=== PATIENT | female | born 1985 | race Caucasian/White ===

== ENCOUNTER 2019-08-02 08:20 | Emergency (ER) | payer OTHER, SELFPAY ==
--- NOTE | 2019-08-02 08:26 | DI.RAD.S_ITS ---
PROCEDURE: XR CHEST 2V INDICATIONS: cough, congestion TECHNIQUE: 2 views of the chest were acquired. COMPARISON: [facility], , CHEST 2 VIEW, 04/28/2016, 15:52. FINDINGS: Surgical changes and devices: None. Lungs and pleura: Lungs are clear. No pleural effusions or pneumothorax. Mediastinum: Mediastinal contours are normal. Heart size is normal. Bones and chest wall: No suspicious bony abnormalities. Soft tissues appear unremarkable. IMPRESSION: No acute cardiopulmonary process is evident. Dictated by: Cipriano Madison M.D. on 08/02/2019 at 7:46 Approved by: Cipriano Madison M.D. on 08/02/2019 at 7:47
[2019-08-02 08:28] VITALS: BP 132/100; PULSE 134; RESP 13; TEMP 37.1; O2SAT 99
[2019-08-02 08:56] VITALS: PULSE 83; RESP 16; O2SAT 98
[2019-08-02 09:00] VITALS: BP 124/90; PULSE 124; RESP 13
[2019-08-02] MEDS: ALBUTEROL HFA PREPACK 1 BOX MISC (09:00)
--- NOTE | 2019-08-02 09:01 | ED_ITS ---
HPI - URI/Sore Throat General Chief Complaint: Upper Respiratory Symptoms Stated Complaint: Heavy Chest, SOB, Congestion Time Seen by Provider: 08/02/19 08:24 Source: patient Mode of arrival: Ambulatory Limitations: no limitations History of Present Illness HPI Narrative: 34-year-old female nonsmoker presents with a chief complaint of wheezing, cough with runny nose and sore throat over the past few days. She d enies any chest pressure and is not dizzy nor weak or lightheaded. She denies use of any street drugs nor recent travel. She denies any nausea, vomiting or diarrhea. She does not have asthma but states she frequently gets wheezy with upper respiratory infection MD Complaint: cough, rhinorrhea and nasal congestion Onset (ago): day(s) Duration: constant Severity: moderate Relieving factors: rest Exacerbating factors: exertion Able to tolerate fluids by mouth: Yes Associated symptoms: nasal congestion and cough Treatments prior to arrival: none Related Data Previous Rx's Medication Instructions Recorded norethindrone 1.5 mg-ethinyl 1 tab PO DAILY #168 tab 07/02/19 estradiol 30 mcg(21)/iron 75 mg(7) tablet bupropion HCl 150 mg tablet,12 hr 150 mg PO DAILY #90 each 07/22/19 sustained-release dextroamphetamine-amphetamine 10 20 mg PO TID #180 tab 08/01/19 mg tablet hydrocodone 5 mg-acetaminophen 325 See Rx Instructions .ROUTE BID #60 08/01/19 mg tablet tab Allergies Allergy/AdvReac Type Severity Reaction Status Date / Time amoxicillin Allergy Unknown Verified 08/01/19 16:49 Review of Systems Constitutional Constitutional: Denies chills, Denies fatigue, Denies fever(s), Denies frequent falls, Denies lethargy and Denies weakness Eyes Eyes: Denies change in vision, Denies eye discharge, Denies irritation and Denies loss of vision ENT Ears, Nose, Mouth, and Throat: Denies change in voice, Denies dizziness, Denies neck pain, Denies sore throat and Denies throat swelling Cardiovascular Cardiovascular: Denies chest pain, Denies irregular heart rhythm, Denies lightheadedness, Denies palpitations, Denies dyspnea, Denies dyspnea on exertion and Denies orthopnea Respiratory Respiratory: Reports cough, Denies hemoptysis, Denies dyspnea, Denies dyspnea on exertion and Reports wheezing Gastrointestinal Gastrointestinal: Denies abdominal pain, Denies change in bowel habits, Denies diarrhea, Denies nausea and Denies vomiting Genitourinary Genitourinary: Denies hematuria, Denies flank pain, Denies urinary incontinence and Denies urinary urgency Musculoskeletal Musculoskeletal: Denies back pain, Denies muscle weakness, Denies neck pain, Denies numbness and Denies tingling Integumentary/Breasts Skin/Breast: Denies pruritus, Denies erythema, Denies rash and Denies wounds Neurologic Neurologic: Denies behavioral changes, Denies confusion, Denies dizziness, Denies frequent falls, Denies loss of vision, Denies numbness, Denies tingling and Denies weakness Psychiatric Psychiatric: Denies anxiety, Denies behavioral changes, Denies confusion, Denies depression, Denies homicidal ideation and Denies suicidal ideation Endocrine Endocrine: Denies fatigue, Denies flushing and Denies palpitations Hematologic/Lymphatic Hematologic/Lymphatic: Denies easy bruising Allergic/Immunologic Allergic/Immunologic: Denies urticaria, Denies throat swelling and Reports wheezing Patient History Medical History Abnormal Pap smear of cervix (Inactive ~2006) Surgical History Anesthesia (Resolved) History of laparoscopy (Resolved) History of oral surgery (Resolved ~10/2000) History of surgery (Resolved) Social History Smoking Status: Never smoker alcohol intake: never Exam Narrative Exam Narrative: GENERAL: [34] year old patient appears stated age. Well- nourished, well-developed patient, in mild distress. Anxious HEAD: Atraumatic. Normocephalic. EYES: Pupils equal round and reactive. Extraocular motions intact. No scleral icterus. No injection or drainage. ENT: Nose without bleeding, purulent drainage. Throat without erythema, tonsillar hypertrophy or exudate. Airway patent. NECK: Trachea midline. Non tender CARDIOVASCULAR: Tachycardic rate and rhythm without murmurs, gallops, or rubs. RESPIRATORY: Deep breath initiates cough, mild expiratory wheeze at the end of the respiratory phase. GASTROINTESTINAL: Abdomen soft, non-tender, nondistended. EXTREMITIES: No edema or joint tenderness. BACK: Nontender without deformity or crepitance. No flank tenderness. NEURO: AOx3. SKIN: No rash or erythema of visible areas Initial Vital Signs Initial Vital Signs: Vital Signs Temperature 98.7 F 08/02/19 08:28 Pulse Rate 134 H 08/02/19 08:28 Respiratory Rate 13 08/02/19 08:28 Blood Pressure 132/100 H 08/02/19 08:28 Pulse Oximetry 99 08/02/19 08:28 Course Course Course Narrative: Patient experiences near complete resolution of symptoms after the above-stated therapies. Patient demonstrates no ongoing work of breathing. Manual pulse is at time of discharge is 106 Orders Ordered: Discontinued Medications Albuterol (Ventolin Hfa Prepack) 1 box MISC SEEINSTR ONE Stop: 08/02/19 08:56 Last Admin: 08/02/19 09:00 Dose: 1 box Documented by: JAY Vital Signs Vital signs: Vital Signs - 8 hr 08/02/19 08:28 08/02/19 08:56 08/02/19 09:00 Temperature 98.7 F Pulse Rate 134 H 83 124 H Respiratory Rate 13 16 13 Blood Pressure 132/100 H 124/90 Pulse Oximetry 99 98 MDM - URI/Sore Throat MDM Narrative Medical decision making narrative: Multiple etiologies for patient's symptoms considered including: [Bronchospasm due to viral upper respiratory infection versus pneumonia versus PE versus other] Patient's symptoms improved or duration of stay with above-stated therapies. Findings and discharge diagnosis discussed with patient/family followed by verbalization of understanding Return precautions discussed with patient/family whom verbalize understanding. Discharge Plan Departure Patient Disposition: Home Clinical Impression: Upper respiratory virus Discharge Date/Time: 08/02/19 09:01 Activity Restrictions/Additional Instructions: *You have been diagnosed with [acute viral upper respiratory infection with bronchospasm] *What to do: *Take medications as directed: Considered [id number] medications with an antihistamine to dry secretions *Follow up with your primary care provider in 2-3 days, call for an appointment. Let them know you were seen in the Emergency Department and that we ask that you be seen in follow up *Return to ER if you should have any new, worsening or concerning symptoms Prescriptions: No Action Mirlande Fe 1.5/30 (28) 1.5 mg-30 mcg (21)/75 mg (7) tablet 1 tab PO DAILY Qty: 168 RF: 0 bupropion HCl [Wellbutrin SR] 150 mg tablet sustained-release 12 hr 150 mg PO DAILY Qty: 90 RF: 0 dextroamphetamine-amphetamine [Adderall] 10 mg tablet 20 mg PO TID Qty: 180 RF: 0 hydrocodone-acetaminophen 5-325 mg tablet See Rx Instructions .ROUTE BID Qty: 60 RF: 0 Referrals: More Bergman DO [Primary Care Provider] -
== END 2019-08-02 09:01 | disposition home or self-care (01) ==
PROVIDERS: Emergency Provider Emergency Medicine; Family Provider Family Medicine; PCP Family Medicine
DX: J06.9 Acute upper respiratory infection, unspecified (principal)
CPT/HCPCS: 71046; 99282; 99283

== ENCOUNTER → 2019-08-15 14:18 | Outpatient (CLI) | payer OTHER, SELFPAY ==
[2019-08-15 14:37] LABS: Add Manual Diff / Slide Review NO; Basophils Absolute Auto 100 /uL (0-100); Basophils Percent Auto 1.1 % (0-2); Eosinophils Absolute Auto 100 /uL (0-450); Eosinophils Percent Auto 1.6 % (2-4); Hemoglobin 15.8 g/dL (12.0-16.0); Lymphocytes Absolute Auto 2100 /uL (1100-4500); Lymphocytes Percent Auto 46.2 % (25-40); Mean Corpuscular HGB Conc 35.1 % (30-36); Mean Corpuscular Hemoglobin 32.2 PG (26-34); Mean Corpuscular Volume 91.8 fL (80-100); Monocytes Absolute Auto 400 /uL (0-900); Monocytes Percent Auto 8.3 % (3-14); Neutrophils Absolute Auto 2000 /uL (1500-7000); Neutrophils Percent Auto 42.8 % (50-75); Platelet Count 259 X10^3/uL (150-400); Red Cell Distribution Width 12.2 % (11.6-14.8); White Blood Cell Count 4.6 X10^3/uL (4.5-11.0)
== END ==
PROVIDERS: PCP Family Medicine; Visit Provider Nurse Practitioner Family
DX: R05 Cough (principal)
CPT/HCPCS: 36415; 85025

== ENCOUNTER 2019-11-07 11:05 | Outpatient (RCR) | payer OTHER, SELFPAY ==
--- NOTE | 2019-11-07 15:52 | PT.OPPOC ---
Physical, Occupational & Speech Therapy At [facility] Current Diagnoses Dorsalgia, unspecified (11/07/19) Visit Care Team Role Provider Type Davis Lawson DO Primary Care Provider Physician Specialty: [facility] Practice Address: [address] [place] [address], [address] Email: [email or web address] Attending Provider Advanced Slot Ambassador Referring Provider Specialty: [facility] Address: [address] [place] [address], [id number] Email: [email or web address] Plan Of Care PT-OP-T Assessment and Plan Start: 11/07/19 10:19 Freq: Status: Active Protocol: Document 11/07/19 11:15 EG (Rec: 11/10/19 11:51 EG [email or web address]) Physical Therapy Assessment Rehab Potential Rehabilitation Potential Good Evaluation Complexity Number of Personal Factors/Comorbidities 3 or More Number of Body Systems Impaired 4 or More Clinical Presentation at Evaluation Stable Impairments Impairments Activity Tolerance,Functional Activities,Functional Mobility ,Gait,Pain,Posture,ROM,Soft Tissue Mobility,Strength,Tone Other Concerns Barriers to Rehabilitation 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 LTG Duration 8 weeks Five Impairment Sleep Short Term Goal (STG) Patient will be able to sleep 6 hour/night with out waking up due to pain in 4 weeks. STG Duration 4 weeks Skilled Nursing Goal (LTG) Patient will be able to sleep 8 hours/night with out waking up due to pain in 8 weeks. LTG Duration 8 weeks Four Impairment Strength Short Term Goal (STG) Patient will increase gluteal extension and abduction strength to 4-/5 in 4 weeks with 50% less contraction of erector spinae. STG Duration 4 weeks Manager Of Loss Prevention Operations Goal (LTG) Patient will increase gluteal extension and abduction strength to 4+/5 in 8 weeks with 90% less contraction of erector spinae. LTG Duration 8 weeks Three Impairment ROM Short Term Goal (STG) Patient will have no more than 2/10 pain when moving from lumbar flexion to extension in 4 weeks. STG Duration 4 weeks Skilled Nursing Goal (LTG) Patient will have pain-free lumbar ROM in all planes in 8 weeks. LTG Duration 8 weeks Two Impairment Pain level Short Term Goal (STG) Patient will have 50% decreased back pain during daily activities in 4 weeks. STG Duration 4 weeks Manager Of Loss Prevention Operations Goal (LTG) Patient will have 85% decreased back pain during daily activities in 8 weeks. LTG Duration 8 weeks One Impairment Modified Oswestry Skilled Nursing Goal (LTG) Patient will decrease Oswestry score to <20% impaired due to back pain in 8 weeks. LTG Duration 8 weeks Assessment Summary Assessment Patient is a pleasant 34 year old female who presents to Physical therapy with the c/c of low back pain as well as R- sided thoracic pain. Patient demonstrates hyperactivity in the bilateral erector spinae with contraction during all activities due to chronic low back pain. Patient also presents with slight diastasis recti in proximal abdomon. R Ribs 4-7 have increased tenderness with no obvious displacement and may benefit from Grade I joint mobilizations as well as deep diaphragmatic breathing activities for pain relief. Patient will benefit from neuromuscular reeducation as well as strength training of the gluteal and hip musculature in order to contract these muscles independently of the erector spinae. Patient will benefit from deep transverse abdominis strengthening in order to help with stabilization of the spine without over engaging larger spinal muscles that may cause tension and pain. Physical Therapy Plan Frequency and Duration Frequency of Treatment 1x/Week Duration of Treatment 8 weeks Plan of Care Start Date 11/07/19 Plan of Care End Date 01/02/20 Therapeutic Interventions Therapeutic Interventions Balance Training,Coordination Training,Gait Training,Home Exercise Program,Joint Mobilizations,Manual Therapy, Neuromuscular Re-education, Patient/Caregiver Education, Self-Care/Home Management,Soft Tissue Mobilization,Taping, Therapeutic Activities, Therapeutic Exercises Modalities Cold Pack/Ice Massage,Electric Stimulation Next Visit Focus/Plan Next Note Type Treatment Note Next Visit Plan Assess how HEP is going. Progress TA strengthening as well as hip abductor strengthening. Perform soft tissue mobilization of erector spinae. Plan of Care Dates Plan of Care Start Date 11/07/19 Plan of Care End Date 01/02/20 Maria Del Carmen Miller DPT, supervised all treatment performed by, and agreed with the plan of care, as performed by YASHIRA Bolanos. Electronically Signed by: Maria Del Carmen Thomas, PT 11/11/19 [id number] Please Sign and Return: I have reviewed this Plan of Care and certify that the skilled therapy services above are required to meet the patient?s needs. Physician Signature Date Printed Name and Credentials Clinical Instructor Signature Printed Name and Credentials
--- NOTE | 2019-11-07 15:52 | PT.OIE ---
Current Diagnoses Dorsalgia, unspecified (11/07/19) Past Medical History (Last Reviewed 10/28/19 @ 09:36 by Davis Lawson DO) Abnormal Pap smear of cervix (Inactive ~2006) Past Surgical History (Last Reviewed 10/28/19 @ 09:36 by Davis Lawson DO) Anesthesia (Resolved) History of laparoscopy (Resolved) History of oral surgery (Resolved ~10/2000) History of surgery (Resolved) Visit Care Team Role Provider Type Davis Lawson DO Primary Care Provider Physician Specialty: [facility] Address: [address] [place] [address] Email: [email or web address] Attending Provider Advanced Personal Care Home Administrator Referring Provider Specialty: [facility] Address: [address] [place] [address] Email: [email or web address] Physical Therapy Initial Evaluation PT-OP-A Visit Information Start: 11/07/19 10:19 Freq: Status: Active Protocol: Document 11/07/19 11:15 EG (Rec: 11/10/19 09:52 EG [email or web address]) Out-Patient Physical Therapy Visit Information Visit Information Visit Type Initial Evaluation Visit Start Time 11:15 Visit Stop Time 12:00 Total Visit Minutes 45 Visit Number 1 Number of HOST AND HOSTESS Visits 0 Evaluation Information Evaluation Date 11/07/19 PT-OP-B Current Condition Start: 11/07/19 10:19 Freq: Status: Active Protocol: Document 11/07/19 11:15 EG (Rec: 11/07/19 12:16 EG [id number]) Current Condition History of Current Condition Onset Date 2018 Current Complaints Persistent low back pain History of Current Condition Patient reports low back pain that started about 3 years ago when and continued post-. She also has complaint of upper back which was due to a respiratory infection in June 2019 when coughing hard. At the time she was barely able to move right arm and the pain was primarily on the R side. Her upper back pain has progressively gotten better since then but she can still feel the spot. Any coughing or sneezing makes pain in the upper back worse. Patient reports that her lower back pain started with and got worse and worse. Patient reports that exacerbation factors include: everything seems to make it worse, walking up and down stairs, sitting for longer periods of time. Average pain is a 4-5/10 and when it gets worse it is hard to breath. Patient also reports Chronic abdominal pain and noticed the other day when propping feet up that there was a giant divot in abdomen. 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 Patient reports that before she was , she was running half marathons. Easing factors include: heat makes her feel better as well as lying down. Patient also reports that sleeping is an issue and gets ~5 hours/night due to pain and waking up and repositioning. Prior Treatments and Tests Physical Therapy for low back while Heat Treatment Goals Patient/Caregiver Goals Nice not to have a constant pain and worry that she is doing too much to cause incerased pain. She would like to become more and more physically active. 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 Baseline Function- Recreation/Hobbies Running, taking care of 2-year old Current Functional Impairments (Reported) Functional Limitations- ADL's Sleeping <5 hours/night due to back pain Functional Limitations- Mobility/Gait unable to run due to pain Functional Limitations- Recreation/ decreased activity with 2 year Hobbies old due to pain Personal Factors Other Personal Factors That May Effect History of cancer Therapy/Recovery Headaches Jaw and neck pain Primary care assistant of 2 year old child PT-OP-C Subjective Start: 11/07/19 10:19 Freq: Status: Active Protocol: Document 11/07/19 11:15 EG (Rec: 11/10/19 11:37 EG [email or web address]) Patient Questionnaires Oswestry Low Back Index Oswestry Score 50 Oswestry Impairment 40 to 59% Impaired (Score 40- 59) OP-PT Pain Assessment Pain Assessment Grid Paper Pain Assessment Grid Completed Yes: 5 - low back bilateral, neck, R scapula PT-OP-F Manual Assessment Start: 11/07/19 10:19 Freq: Status: Active Protocol: Document 11/07/19 11:15 EG (Rec: 11/10/19 11:37 EG [email or web address]) Manual Assessments Soft Tissue Assessment Soft Tissue Mobility Assessment Tenderness on soft tissue of ribs 4-7 Increased tenderness bilaterally superior to iliac crest Decreased fascia mobility bilateral erector spinae Joint Mobility Assessment Joint Mobility Assessment PA normal - increased pain with palpation L2-S1 PT-OP-J Posture/Palpation/Skin Start: 11/07/19 10:19 Freq: Status: Active Protocol: Document 11/07/19 11:15 EG (Rec: 11/10/19 11:37 EG [email or web address]) Posture Evaluation Position Standing Evaluation View Posterior L-Spine Posture Increased Lordosis Shoulder Posture (L) Elevated,(R) Elevated Scapula Posture (L) Protracted,(R) Protracted Pelvis Posture Anteriorly Tilted Palpation Assessment Location 2 Palpation Location Rectus Abdominis Palpation Findings Tenderness Palpation Details 2 finger distance diastasis recti above umbilicus 1 finger distance diastasis recti below umbilicus 1 Palpation Location Bilateral erector spinae Palpation Findings Muscle Guarding,Tenderness Palpation Details Bilateral erector spinae hyper active with all movements PT-OP-K Range of Motion Start: 11/07/19 10:19 Freq: Status: Active Protocol: Document 11/07/19 11:15 EG (Rec: 11/10/19 11:37 EG [email or web address]) Lumbar Spine Range of Motion Lumbar Spine Active Testing Position Standing Comments All movements WNL with increased pain moving from flexion to extension of lumbar spine at last 10 degrees of movement PT-OP-L Special Tests Start: 11/07/19 10:19 Freq: Status: Active Protocol: Document 11/07/19 11:15 EG (Rec: 11/10/19 11:37 EG [email or web address]) Special Tests Lumbar Spine Special Tests Slump Test Results - Comments bilateral Stork Test Test Results - Comments normal movement of SIJ Hip Special Tests Straight Leg Raise Test Results - Comments Increased tension at 90 degrees leg raise MIKA Test Results - PT-OP-M Strength Start: 11/07/19 10:19 Freq: Status: Active Protocol: Document 11/07/19 11:15 EG (Rec: 11/10/19 11:37 EG [email or web address]) Hip Strength Hip Manual Muscle Testing Left Extension (S1) 3+ Fair+ Abduction 3+ Fair+ Comments Pain with hip extension - increased erector spinae firing with hip extension Right Extension (S1) 3+ Fair+ Abduction 3+ Fair+ Comments Pain with hip extension - increased erector spinae firing with hip extension PT-OP-Q Treatments Start: 11/07/19 10:19 Freq: Status: Active Protocol: Document 11/07/19 11:15 EG (Rec: 11/10/19 11:37 EG [email or web address]) Therapeutic Exercises Supine Exercises Supine lumbar rotation Supine Exercise Name Supine lumbar rotation Side bilateral Reps/Minutes 10x Comments Given as HEP - hold side for 10 sec Posterior Pelvic Tilt Supine Exercise Name TA engagement Side bilateral Reps/Minutes 10x Comments move with breath - patient in hooklying - given as HEP PT-OP-T Assessment and Plan Start: 11/07/19 10:19 Freq: Status: Active Protocol: Document 11/07/19 11:15 EG (Rec: 11/10/19 11:51 EG [email or web address]) Physical Therapy Assessment Rehab Potential Rehabilitation Potential Good Evaluation Complexity Number of Personal Factors/Comorbidities 3 or More Number of Body Systems Impaired 4 or More Clinical Presentation at Evaluation Stable Impairments Impairments Activity Tolerance,Functional Activities,Functional Mobility ,Gait,Pain,Posture,ROM,Soft Tissue Mobility,Strength,Tone Other Concerns Barriers to Rehabilitation 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 LTG Duration 8 weeks Five Impairment Sleep Short Term Goal (STG) Patient will be able to sleep 6 hour/night with out waking up due to pain in 4 weeks. STG Duration 4 weeks Long-Term Goal (LTG) Patient will be able to sleep 8 hours/night with out waking up due to pain in 8 weeks. LTG Duration 8 weeks Four Impairment Strength Short Term Goal (STG) Patient will increase gluteal extension and abduction strength to 4-/5 in 4 weeks with 50% less contraction of erector spinae. STG Duration 4 weeks Long-Term Goal (LTG) Patient will increase gluteal extension and abduction strength to 4+/5 in 8 weeks with 90% less contraction of erector spinae. LTG Duration 8 weeks Three Impairment ROM Short Term Goal (STG) Patient will have no more than 2/10 pain when moving from lumbar flexion to extension in 4 weeks. STG Duration 4 weeks Crop Farm Workers Goal (LTG) Patient will have pain-free lumbar ROM in all planes in 8 weeks. LTG Duration 8 weeks Two Impairment Pain level Short Term Goal (STG) Patient will have 50% decreased back pain during daily activities in 4 weeks. STG Duration 4 weeks Long-Term Goal (LTG) Patient will have 85% decreased back pain during daily activities in 8 weeks. LTG Duration 8 weeks One Impairment Modified Oswestry Long-Term Goal (LTG) Patient will decrease Oswestry score to <20% impaired due to back pain in 8 weeks. LTG Duration 8 weeks Assessment Summary Assessment Patient is a pleasant 34 year old female who presents to Physical therapy with the c/c of low back pain as well as R- sided thoracic pain. Patient demonstrates hyperactivity in the bilateral erector spinae with contraction during all activities due to chronic low back pain. Patient also presents with slight diastasis recti in proximal abdomon. R Ribs 4-7 have increased tenderness with no obvious displacement and may benefit from Grade I joint mobilizations as well as deep diaphragmatic breathing activities for pain relief. Patient will benefit from neuromuscular reeducation as well as strength training of the gluteal and hip musculature in order to contract these muscles independently of the erector spinae. Patient will benefit from deep transverse abdominis strengthening in order to help with stabilization of the spine without over engaging larger spinal muscles that may cause tension and pain. Physical Therapy Plan Frequency and Duration Frequency of Treatment 1x/Week Duration of Treatment 8 weeks Plan of Care Start Date 11/07/19 Plan of Care End Date 01/02/20 Therapeutic Interventions Therapeutic Interventions Balance Training,Coordination Training,Gait Training,Home Exercise Program,Joint Mobilizations,Manual Therapy, Neuromuscular Re-education, Patient/Caregiver Education, Self-Care/Home Management,Soft Tissue Mobilization,Taping, Therapeutic Activities, Therapeutic Exercises Modalities Cold Pack/Ice Massage,Electric Stimulation Next Visit Focus/Plan Next Note Type Treatment Note Next Visit Plan Assess how HEP is going. Progress TA strengthening as well as hip abductor strengthening. Perform soft tissue mobilization of erector spinae. Maria Del Carmen Miller DPT, supervised all treatment performed by, and agreed with the plan of care, as performed by YASHIRA Bolanos.
--- NOTE | 2020-03-24 16:04 | PT.OPDS ---
Current Diagnoses Dorsalgia, unspecified (11/07/19) Visit Care Team Role Provider Type Davis Lawson DO Primary Care Provider Physician Specialty: [facility] Practice Address: [address] [place] [address], [id number] Email: [email or web address] Attending Provider Advanced Assurance Manager Referring Provider Specialty: [facility] Address: [address] [place] [address], [id number] Email: [email or web address] Visit Number Visit Number 1 Discharge Summary PT-OP-B Current Condition Start: 11/07/19 10:19 Freq: Status: Active Protocol: Document 11/07/19 11:15 EG (Rec: 11/07/19 12:16 EG [id number]) Current Condition History of Current Condition Onset Date 2017 Current Complaints Persistent low back pain History of Current Condition Patient reports low back pain that started about 3 years ago when and continued post-. She also has complaint of upper back which was due to a respiratory infection in June 2019 when coughing hard. At the time she was barely able to move right arm and the pain was primarily on the R side. Her upper back pain has progressively gotten better since then but she can still feel the spot. Any coughing or sneezing makes pain in the upper back worse. Patient reports that her lower back pain started with and got worse and worse. Patient reports that exacerbation factors include: everything seems to make it worse, walking up and down stairs, sitting for longer periods of time. Average pain is a 4-5/10 and when it gets worse it is hard to breath. Patient also reports Chronic abdominal pain and noticed the other day when propping feet up that there was a giant divot in abdomen. 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 Patient reports that before she was , she was running half marathons. Easing factors include: heat makes her feel better as well as lying down. Patient also reports that sleeping is an issue and gets ~5 hours/night due to pain and waking up and repositioning. Prior Treatments and Tests Physical Therapy for low back while Heat Treatment Goals Patient/Caregiver Goals Nice not to have a constant pain and worry that she is doing too much to cause incerased pain. She would like to become more and more physically active. 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 Baseline Function- Recreation/Hobbies Running, taking care of 2-year old Current Functional Impairments (Reported) Functional Limitations- ADL's Sleeping <5 hours/night due to back pain Functional Limitations- Mobility/Gait unable to run due to pain Functional Limitations- Recreation/ decreased activity with 2 year Hobbies old due to pain Personal Factors Other Personal Factors That May Effect History of cancer Therapy/Recovery Headaches Jaw and neck pain 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 PT-OP-C Subjective Start: 11/07/19 10:19 Freq: Status: Active Protocol: Document 11/07/19 11:15 EG (Rec: 11/10/19 11:37 EG [email or web address]) Patient Questionnaires Oswestry Low Back Index Oswestry Score 50 Oswestry Impairment 40 to 59% Impaired (Score 40- 59) OP-PT Pain Assessment Pain Assessment Grid Paper Pain Assessment Grid Completed Yes: 5 - low back bilateral, neck, R scapula PT-OP-F Manual Assessment Start: 11/07/19 10:19 Freq: Status: Active Protocol: Document 11/07/19 11:15 EG (Rec: 11/10/19 11:37 EG [email or web address]) Manual Assessments Soft Tissue Assessment Soft Tissue Mobility Assessment Tenderness on soft tissue of ribs 4-7 Increased tenderness bilaterally superior to iliac crest Decreased fascia mobility bilateral erector spinae Joint Mobility Assessment Joint Mobility Assessment PA normal - increased pain with palpation L2-S1 PT-OP-J Posture/Palpation/Skin Start: 11/07/19 10:19 Freq: Status: Active Protocol: Document 11/07/19 11:15 EG (Rec: 11/10/19 11:37 EG [email or web address]) Posture Evaluation Position Standing Evaluation View Posterior L-Spine Posture Increased Lordosis Shoulder Posture (L) Elevated,(R) Elevated Scapula Posture (L) Protracted,(R) Protracted Pelvis Posture Anteriorly Tilted Palpation Assessment Location 2 Palpation Location Rectus Abdominis Palpation Findings Tenderness Palpation Details 2 finger distance diastasis recti above umbilicus 1 finger distance diastasis recti below umbilicus 1 Palpation Location Bilateral erector spinae Palpation Findings Muscle Guarding,Tenderness Palpation Details Bilateral erector spinae hyper active with all movements PT-OP-K Range of Motion Start: 11/07/19 10:19 Freq: Status: Active Protocol: Document 11/07/19 11:15 EG (Rec: 11/10/19 11:37 EG [email or web address]) Lumbar Spine Range of Motion Lumbar Spine Active Testing Position Standing Comments All movements WNL with increased pain moving from flexion to extension of lumbar spine at last 10 degrees of movement PT-OP-L Special Tests Start: 11/07/19 10:19 Freq: Status: Active Protocol: Document 11/07/19 11:15 EG (Rec: 11/10/19 11:37 EG [email or web address]) Special Tests Lumbar Spine Special Tests Slump Test Results - Comments bilateral Stork Test Test Results - Comments normal movement of SIJ Hip Special Tests Straight Leg Raise Test Results - Comments Increased tension at 90 degrees leg raise MIKA Test Results - PT-OP-M Strength Start: 11/07/19 10:19 Freq: Status: Active Protocol: Document 11/07/19 11:15 EG (Rec: 11/10/19 11:37 EG [email or web address]) Hip Strength Hip Manual Muscle Testing Left Extension (S1) 3+ Fair+ Abduction 3+ Fair+ Comments Pain with hip extension - increased erector spinae firing with hip extension Right Extension (S1) 3+ Fair+ Abduction 3+ Fair+ Comments Pain with hip extension - increased erector spinae firing with hip extension PT-OP-T Assessment and Plan Start: 11/07/19 10:19 Freq: Status: Active Protocol: Document 03/24/20 16:04 MB (Rec: 03/24/20 16:04 MB [id number]) Physical Therapy Plan Discharge Physical Therapy Discharge Reasons No Longer Attending PT Discharge Comments Pt has not been seen or called to reschedule after COVID closure. Will d/c PT.
== END 2020-03-26 08:11 ==
LOC: PHYS 11:05
PROVIDERS: PCP Family Medicine; Referring Provider Nurse Practitioner Family; Visit Provider Nurse Practitioner Family
DX: M54.9 Dorsalgia, unspecified (principal)
CPT/HCPCS: 97161

== ENCOUNTER → 2019-11-24 12:04 | Outpatient (CLI) | payer OTHER, SELFPAY ==
[2019-11-24 13:10] LABS: Add Manual Diff / Slide Review NO; Basophils Absolute Auto 0 /uL (0-100); Eosinophils Absolute Auto 0 /uL (0-450); Eosinophils Percent Auto 0.4 % (2-4); Hematocrit 45.7 % (36-46); Hemoglobin 16.1 g/dL (12.0-16.0); Lymphocytes Absolute Auto 1700 /uL (1100-4500); Mean Corpuscular HGB Conc 35.2 % (30-36); Mean Corpuscular Hemoglobin 32.6 PG (26-34); Mean Corpuscular Volume 92.5 fL (80-100); Monocytes Absolute Auto 300 /uL (0-900); Monocytes Percent Auto 7.4 % (3-14); Neutrophils Absolute Auto 1900 /uL (1500-7000); Neutrophils Percent Auto 48.2 % (50-75); Platelet Count 229 X10^3/uL (150-400); Red Blood Cell Count 4.94 X10^6/uL (4.0-5.2); Red Cell Distribution Width 12.2 % (11.6-14.8); White Blood Cell Count 3.8 X10^3/uL (4.5-11.0)
[2019-11-26 11:14] LABS: Adenovirus Not Detected (Not Detect); Coronavirus 229E Not Detected (Not Detect); Coronavirus HKU1 Not Detected (Not Detect); Coronavirus NL 63 Not Detected (Not Detect); Coronavirus OC43 Not Detected (Not Detect); Human Metapneumovirus Not Detected (Not Detect)
[2019-11-26 11:15] LABS: Bordetella pertussis Not Detected (Not Detect); Chlamydophila pneumoniae Not Detected (Not Detect); Human Rhinovirus/Enterovirus Detected (Not Detect); Influenza A Not Detected (Not Detect); Influenza B Not Detected (Not Detect); Mycoplasma pneumoniae Not Detected (Not Detect); Parainfluenza Virus 1 Not Detected (Not Detect); Parainfluenza Virus 2 Not Detected (Not Detect); Parainfluenza Virus 3 Not Detected (Not Detect); Parainfluenza Virus 4 Not Detected (Not Detect); Respiratory Syncytial Virus Not Detected (Not Detect)
== END ==
PROVIDERS: PCP Family Medicine; Referring Provider Family Medicine; Visit Provider Family Medicine
DX: J40 Bronchitis, not specified as acute or chronic (principal)
CPT/HCPCS: 36415; 85025

== ENCOUNTER → 2019-11-24 16:41 | Outpatient (CLI) | payer OTHER, SELFPAY ==
--- NOTE | 2019-11-24 16:42 | DI.RAD.S_ITS ---
PROCEDURE: XR CHEST 2V INDICATIONS: Progressive cough exertional fatigue TECHNIQUE: 2 views of the chest were acquired. COMPARISON: [facility], CR, XR CHEST 2V, 08/02/2019, 8:29. FINDINGS: Surgical changes and devices: None. Lungs and pleura: Lungs are clear. No pleural effusions or pneumothorax. Mediastinum: Mediastinal contours are normal. Heart size is normal. Bones and chest wall: No suspicious bony abnormalities. Soft tissues appear unremarkable. IMPRESSION: No acute disease Dictated by: Santo Pepper M.D. on 11/24/2019 at 17:28 Approved by: Santo Pepper M.D. on 11/24/2019 at 17:29
== END ==
PROVIDERS: PCP Family Medicine; Referring Provider Family Medicine; Visit Provider Family Medicine
DX: J40 Bronchitis, not specified as acute or chronic (principal); R53.83 Other fatigue
CPT/HCPCS: 36415; 71046; 85025; 87633

== ENCOUNTER → 2019-12-22 11:31 | Outpatient (CLI) | payer OTHER, SELFPAY ==
[2019-12-24 01:10] LABS: COVID19 Sendout Not Detected (Not Detected)
== END ==
PROVIDERS: PCP Family Medicine; Visit Provider Physician Assistant
DX: R06.02 Shortness of breath (principal)
CPT/HCPCS: 87635

== ENCOUNTER 2019-12-22 11:46 | Emergency (ER) | payer OTHER, SELFPAY ==
[2019-12-22 11:55] VITALS: BP 138/83; PULSE 94; RESP 17; TEMP 37; O2SAT 100
--- NOTE | 2019-12-22 12:24 | DI.RAD.S_ITS ---
PROCEDURE: XR CHEST 2V INDICATIONS: Short of breath, fever TECHNIQUE: 2 views of the chest were acquired. COMPARISON: [facility], , CHEST 2 VIEW, 04/28/2016, 15:52. [facility], , XR CHEST 2V, 08/02/2019, 8:29. [facility], CR, XR CHEST 2V, 11/24/2019, 16:44. FINDINGS: Surgical changes and devices: None. Lungs and pleura: Lungs are clear. No pleural effusions or pneumothorax. Mediastinum: Mediastinal contours are normal. Heart size is normal. Bones and chest wall: No suspicious bony abnormalities. Soft tissues appear unremarkable. IMPRESSION: Clear lungs, without focal infiltrates. Dictated by: Tristan Briones M.D. on 12/22/2019 at 12:11 Approved by: Tristan Briones M.D. on 12/22/2019 at 12:12
--- NOTE | 2019-12-22 12:28 | ED.SOB ---
HPI - SOB/Dyspnea <Anu Durand, MEDICAL UNDERWRITER-BC - Last Filed: 12/22/19 15:58> General Chief Complaint: Shortness of Breath/Dyspnea Stated Complaint: SOB,chest pain Time Seen by Provider: 12/22/19 11:55 Source: patient Mode of arrival: Ambulatory Limitations: no limitations History of Present Illness HPI Narrative: The patient is a 34-year-old female nonsmoker with history of migraines and pelvic pain as well as remote history of oral cancer who presents with a chief complaint of approximately 2 weeks of cough dry cough, shortness of breath, and fatigue. She states she has had temperatures to low-grade 100. She states she now feels so tired and short of breath she has to stop going up the stairs. She presents to the emergency department from the respiratory clinic, who referred her after finding an SpO2 in the low 90s. Upon arrival to the emergency department she was noted to be 100% on room air. The patient states that she has tried a few things over the past few weeks to feel better including allergy medicine and ibuprofen. She denies any abdominal pain, but complains of nausea over the past several days as well as a few episodes of diarrhea. She has known currently. She states her throat hurts on and off and her ears her on and off. She is concerned because her son was recently at a halfway facility doing a music performance. She is concerned about mendez virus at this point time. Related Data Previous Rx's Medication Instructions Recorded bupropion HCl 150 mg tablet,12 hr 150 mg PO DAILY #90 each 07/22/19 sustained-release dextroamphetamine-amphetamine 10 20 mg PO TID #180 tab 10/02/19 mg tablet duloxetine 30 mg capsule,delayed 30 mg PO DAILY #90 cap 10/27/19 release meloxicam 15 mg tablet 15 mg PO DAILY #90 tab 10/27/19 norethindrone 1.5 mg-ethinyl 1 tab PO DAILY #168 tab 11/17/19 estradiol 30 mcg(21)/iron 75 mg(7) tablet dextroamphetamine-amphetamine ER 30 mg PO BID #60 cap 11/26/19 30 mg 24hr capsule,extend release hydrocodone 5 mg-acetaminophen 325 See Rx Instructions .ROUTE BID #60 12/01/ mg tablet tab ondansetron 4 mg PO Q6H PRN #14 tab 12/22/19 Allergies Allergy/AdvReac Type Severity Reaction Status Date / Time amoxicillin Allergy Severe Rash Verified 12/22/19 12:09 Review of Systems <NAVEED Souza - Last Filed: 12/22/19 15:58> Review of Systems Narrative: GENERAL: See HPI HEENT: Denies sinus pain, ear pain, sore throat, difficulty swallowing, dizziness. RESPIRATORY: See HPI CARDIOVASCULAR: See HPI GASTROINTESTINAL: See HPI : Denies dysuria, frequency, incontinence, hematuria, urinary retention. MUSCULOSKELETAL: denies weakness, joint pain, or bony pain SKIN: Denies rash, skin lesions, or other NEUROLOGIC: Denies weakness, headache, numbness, change in speech, confusion, seizures, incoordination. PSYCHIATRIC: No concerning psychosocial issues. 12 point review of systems is negative except for those stated above Patient History <NAVEED Souza - Last Filed: 12/22/19 15:58> Medical History Abnormal Pap smear of cervix (Inactive ~2006) Bronchitis (Acute) Surgical History Anesthesia (Resolved) History of laparoscopy (Resolved) History of oral surgery (Resolved ~10/2000) History of surgery (Resolved) Social History Smoking Status: Never smoker alcohol intake: never Smoking Status: Never smoker alcohol intake frequency: 0-2 drinks per day Substance Use Type: does not use Exam <NAVEED Souza - Last Filed: 12/22/19 15:58> Narrative Exam Narrative: GENERAL: Thin female lying on stretcher in no acute distress wearing mass HEAD: Atraumatic. Normocephalic. No temporal or scalp tenderness. EYES: Pupils equal round and reactive. Extraocular motions intact. No scleral icterus. No injection or drainage. ENT: Nose without bleeding, purulent drainage or septal hematoma. Throat without erythema, tonsillar hypertrophy or exudate. Uvula midline. Airway patent. Bilateral TMs pearly rosen. NECK: Trachea midline. No JVD or lymphadenopathy. Supple, nontender, no meningeal signs. CARDIOVASCULAR: Regular rate and rhythm RESPIRATORY: Coarse bilaterally to auscultation. Breath sounds equal bilaterally. No wheezes, rales, or rhonchi. Occasional dry cough during exam GASTROINTESTINAL: Abdomen soft, non-tender, nondistended. No hepato-splenomegaly, or palpable masses. No guarding. EXTREMITIES: No clubbing, cyanosis, or edema. No joint tenderness, effusion, or edema noted. BACK: Nontender without deformity or crepitance. No flank tenderness. NEURO: AOx3. Interactive. Age appropriate. Stable gait. SKIN: No rash or erythema on visible skin Initial Vital Signs Initial Vital Signs: Vital Signs Temperature 98.6 F 12/22/19 11:55 Pulse Rate 94 H 12/22/19 11:55 Respiratory Rate 17 12/22/19 11:55 Blood Pressure 138/83 12/22/19 11:55 Pulse Oximetry 100 12/22/19 11:55 <Anu Agrawal DO - Last Filed: 12/22/19 18:29> Initial Vital Signs Initial Vital Signs: Vital Signs Temperature 98.6 F 12/22/19 11:55 Pulse Rate 94 H 12/22/19 11:55 Respiratory Rate 17 12/22/19 11:55 Blood Pressure 138/83 12/22/19 11:55 Pulse Oximetry 100 12/22/19 11:55 Scores <NAVEED Souza - Last Filed: 12/22/19 15:58> GCS [place] coma scale eye opening: Spontaneous [place] coma scale verbal response: Orientated [place] coma scale motor response: Obey commands [place] coma scale total score: 15 Course <NAVEED Souza - Last Filed: 12/22/19 15:58> Orders Ordered: ED Orders 12/22/19 12:24 XR chest 2V Stat 12/22/19 12:25 Urine Culture Stat Urine Microscopic Stat 12/22/19 12:50 C-Reactive Protein Quant Stat Complete Blood Count AUTO DIFF Stat Comprehensive Metabolic Panel Stat Ferritin Stat Lactate (Lactic Acid) Stat Lactate Dehydrogenase Stat NT-proBNP (BNP-Adult 18+) Stat Procalcitonin Stat Troponin & CK Cardiac Panel Stat Discontinued Medications Ondansetron HCl (Zofran Odt) 4 mg SL NOW ONE Stop: 12/22/19 12:25 Last Admin: 12/22/19 12:30 Dose: 4 mg Documented by: MELINDA Vital Signs Vital signs: Vital Signs - 8 hr 12/22/19 11:55 12/22/19 13:30 12/22/19 15:16 Temperature 98.6 F Pulse Rate 94 H 97 H 99 H Respiratory Rate 17 17 16 Blood Pressure 138/83 Blood Pressure [Left Arm] 121/87 Pulse Oximetry 100 99 100 <Anu Agrawal DO - Last Filed: 12/22/19 18:29> Orders Ordered: ED Orders 12/22/19 12:24 XR chest 2V Stat 12/22/19 12:25 Urine Culture Stat Urine Microscopic Stat 12/22/19 12:50 C-Reactive Protein Quant Stat Complete Blood Count AUTO DIFF Stat Comprehensive Metabolic Panel Stat Ferritin Stat Lactate (Lactic Acid) Stat Lactate Dehydrogenase Stat NT-proBNP (BNP-Adult 18+) Stat Procalcitonin Stat Troponin & CK Cardiac Panel Stat Discontinued Medications Ondansetron HCl (Zofran Odt) 4 mg SL NOW ONE Stop: 12/22/19 12:25 Last Admin: 12/22/19 12:30 Dose: 4 mg Documented by: MELINDA Vital Signs Vital signs: Vital Signs - 8 hr 12/22/19 11:55 12/22/19 13:30 12/22/19 15:16 Temperature 98.6 F Pulse Rate 94 H 97 H 99 H Respiratory Rate 17 17 16 Blood Pressure 138/83 Blood Pressure [Left Arm] 121/87 Pulse Oximetry 100 99 100 MDM - SOB/Dyspnea <NAVEED Souza - Last Filed: 12/22/19 15:58> Differential Diagnosis Differential diagnosis: Likely acute exacerbation of chronic obstructive airways disease, community acquired pneumonia and other (Covid19) Lab Data Result diagrams: 12/22/19 12:50 12/22/19 12:50 Labs: Lab Results 12/22/19 12/22/19 12/22/19 Range/Units 12:25 12:50 12:50 WBC 4.6 (4.5-11.0) X10^3/uL RBC 4.81 (4.0-5.2) X10^6/uL Hgb 15.6 (12.0-16.0) g/dL Hct 45.0 (36-46) % MCV 93.5 (80-100) fL MCH 32.4 (26-34) PG MCHC 34.7 (30-36) % RDW 12.2 (11.6-14.8) % Plt Count 199 (150-400) X10^3/uL Neut % (Auto) 53.1 (50-75) % Lymph % (Auto) 37.5 (25-40) % [place] % (Auto) 8.2 (3-14) % Eos % (Auto) 0.4 L (2-4) % Baso % (Auto) 0.8 (0-2) % Neut # (Auto) 2500 (8455-0212) /uL Lymph # (Auto) 1700 (6951-8432) /uL [place] # (Auto) 400 (0-900) /uL Eos # (Auto) 0 (0-450) /uL Baso # (Auto) 0 (0-100) /uL Sodium (137-145) mmol/L Potassium (3.4-5.1) mmol/L Chloride (98-107) mmol/L Carbon Dioxide (22-32) mmol/L BUN (7-17) mg/dL Creatinine (0.52-1.04) mg/dL Estimated GFR (>60) mL/min BUN/Creatinine Ratio (6-22) Glucose (70-100) mg/dL Lactate (0.7-2.1) mmol/L Calcium (8.4-10.2) mg/dL Ferritin (6-137) ng/mL Total Bilirubin (0.2-1.3) mg/dL AST (14-36) IU/L ALT (<35) IU/L Alkaline Phosphatase (38-126) U/L Lactate Dehydrogenase (313-618) U/L Total Creatine Kinase (30-135) U/L CK-MB (CK-2) CK-MB (CK-2) Rel Index Troponin I (0.01-0.034) ng/mL C-Reactive Protein (<1.0) mg/dL NT-Pro-B Natriuret Pep (<125) pg/mL Total Protein (6.3-8.2) g/dL Albumin (3.5-5.0) g/dL Globulin (1.7-4.1) g/dL Albumin/Globulin Ratio (1.0-2.8) Procalcitonin < 0.05 (<0.5) ng/mL Urine RBC None seen (0-5/HPF) Urine WBC 1-5/hpf (0-5/HPF) Ur Squamous Epith Cells 5-10 /hpf H (0-5/HPF) Amorphous Sediment 1+ Urine Bacteria Few (2-10) H (None) Urine Mucus 1+ H (Negative) Urine Yeast 1-5/hpf H (None) Ur Culture Indicated? Specimen cultured 12/22/19 12/22/19 Range/Units 12:50 12:50 WBC (4.5-11.0) X10^3/uL RBC (4.0-5.2) X10^6/uL Hgb (12.0-16.0) g/dL Hct (36-46) % MCV (80-100) fL MCH (26-34) PG MCHC (30-36) % RDW (11.6-14.8) % Plt Count (150-400) X10^3/uL Neut % (Auto) (50-75) % Lymph % (Auto) (25-40) % [place] % (Auto) (3-14) % Eos % (Auto) (2-4) % Baso % (Auto) (0-2) % Neut # (Auto) (2744-7415) /uL Lymph # (Auto) (8739-6744) /uL [place] # (Auto) (0-900) /uL Eos # (Auto) (0-450) /uL Baso # (Auto) (0-100) /uL Sodium 136 L (137-145) mmol/L Potassium 4.5 (3.4-5.1) mmol/L Chloride 104 (98-107) mmol/L Carbon Dioxide 26 (22-32) mmol/L BUN 9 (7-17) mg/dL Creatinine 0.67 (0.52-1.04) mg/dL Estimated GFR > 60.0 (>60) mL/min BUN/Creatinine Ratio 13.4 (6-22) Glucose 96 (70-100) mg/dL Lactate 0.6 L (0.7-2.1) mmol/L Calcium 9.2 (8.4-10.2) mg/dL Ferritin 33 (6-137) ng/mL Total Bilirubin 0.6 (0.2-1.3) mg/dL AST 21 (14-36) IU/L ALT 9 (<35) IU/L Alkaline Phosphatase 38 (38-126) U/L Lactate Dehydrogenase 324 (313-618) U/L Total Creatine Kinase 25 L (30-135) U/L CK-MB (CK-2) TNP CK-MB (CK-2) Rel Index TNP Troponin I < 0.012 (0.01-0.034) ng/mL C-Reactive Protein < 0.5 (<1.0) mg/dL NT-Pro-B Natriuret Pep 36 (<125) pg/mL Total Protein 7.8 (6.3-8.2) g/dL Albumin 4.3 (3.5-5.0) g/dL Globulin 3.5 (1.7-4.1) g/dL Albumin/Globulin Ratio 1.2 (1.0-2.8) Procalcitonin (<0.5) ng/mL Urine RBC (0-5/HPF) Urine WBC (0-5/HPF) Ur Squamous Epith Cells (0-5/HPF) Amorphous Sediment Urine Bacteria (None) Urine Mucus (Negative) Urine Yeast (None) Ur Culture Indicated? Point of Care Testing Test Results Negative Urine Dip Bedside Urine Glucose Negative Bedside Urine Bilirubin - Negative Bedside Urine Ketone - Negative Urine Specific Chapman 1.015 Bedside Urine Occult Blood - Negative Bedside Urine pH 7.0 Bedside Urine Protein - Negative Bedside Urine Urobilinogen - Negative Bedside Urine Nitrite - Negative Bedside Urine Leukocytes +/- 15 Esterase Imaging Data Chest x-ray: Radiologist's Impression: [address] [place] [id number] XRay Report Signed Patient: Ines Dunaway EMR#: [id number] : 1985Acct:[id number] Age/Sex: 34 / FDate of Service: 12/22/19 Loc: ED Accession Number: [id number] Procedure: XR chest 2V Ordering Provider: Anu Durand PROCEDURE: XR CHEST 2V INDICATIONS: Short of breath, fever TECHNIQUE: 2 views of the chest were acquired. COMPARISON: [facility], , CHEST 2 VIEW, 04/28/2016, 15:52. [facility], CR, XR CHEST 2V, 08/02/2019, 8:29. [facility], CR, XR CHEST 2V, 11/24/2019, 16:44. FINDINGS: Surgical changes and devices: None. Lungs and pleura: Lungs are clear. No pleural effusions or pneumothorax. Mediastinum: Mediastinal contours are normal. Heart size is normal. Bones and chest wall: No suspicious bony abnormalities. Soft tissues appear unremarkable. IMPRESSION: Clear lungs, without focal infiltrates. Dictated by: Tristan Briones M.D. on 12/22/2019 at 12:11 Approved by: Tristan Briones M.D. on 12/22/2019 at 12:12 [facility] Narrative Medical decision making narrative: The patient is a 34-year-old female who presents with a chief complaint of continued cough, fever, malaise and fatigue. She has mendez virus testing pending which was confirmed by the respiratory clinic. At the emergency department she remained normotensive, was not hypoxic and was oxygenating well. Ambulatory SpO2 96%. Overall her labs are benign, your chest x-ray shows no signs of pneumonia. However given her multiple complaints including fever, shortness of breath, fatigue loss of taste and sense of smell, she is likely to have covid19. I discussed at length rest, pushing fluids, staying at home, acting as though she is sick, washing hands covering coughs and sneezes. I discussed at length following up with primary care provider in the next few days and coming back to the emergency department for any acute concerns such as significant shortness of breath etcetera. Patient has no questions or concerns upon discharge and states understanding of return precautions as well as follow-up care. <Anu Agrawal, DO - Last Filed: 12/22/19 18:29> Lab Data Labs: Lab Results 12/22/19 12/22/19 12/22/19 Range/Units 12:25 12:50 12:50 WBC 4.6 (4.5-11.0) X10^3/uL RBC 4.81 (4.0-5.2) X10^6/uL Hgb 15.6 (12.0-16.0) g/dL Hct 45.0 (36-46) % MCV 93.5 (80-100) fL MCH 32.4 (26-34) PG MCHC 34.7 (30-36) % RDW 12.2 (11.6-14.8) % Plt Count 199 (150-400) X10^3/uL Neut % (Auto) 53.1 (50-75) % Lymph % (Auto) 37.5 (25-40) % [place] % (Auto) 8.2 (3-14) % Eos % (Auto) 0.4 L (2-4) % Baso % (Auto) 0.8 (0-2) % Neut # (Auto) 2500 (1033-7963) /uL Lymph # (Auto) 1700 (1794-1828) /uL [place] # (Auto) 400 (0-900) /uL Eos # (Auto) 0 (0-450) /uL Baso # (Auto) 0 (0-100) /uL Sodium (137-145) mmol/L Potassium (3.4-5.1) mmol/L Chloride (98-107) mmol/L Carbon Dioxide (22-32) mmol/L BUN (7-17) mg/dL Creatinine (0.52-1.04) mg/dL Estimated GFR (>60) mL/min BUN/Creatinine Ratio (6-22) Glucose (70-100) mg/dL Lactate (0.7-2.1) mmol/L Calcium (8.4-10.2) mg/dL Ferritin (6-137) ng/mL Total Bilirubin (0.2-1.3) mg/dL AST (14-36) IU/L ALT (<35) IU/L Alkaline Phosphatase (38-126) U/L Lactate Dehydrogenase (313-618) U/L Total Creatine Kinase (30-135) U/L CK-MB (CK-2) CK-MB (CK-2) Rel Index Troponin I (0.01-0.034) ng/mL C-Reactive Protein (<1.0) mg/dL NT-Pro-B Natriuret Pep (<125) pg/mL Total Protein (6.3-8.2) g/dL Albumin (3.5-5.0) g/dL Globulin (1.7-4.1) g/dL Albumin/Globulin Ratio (1.0-2.8) Procalcitonin < 0.05 (<0.5) ng/mL Urine RBC None seen (0-5/HPF) Urine WBC 1-5/hpf (0-5/HPF) Ur Squamous Epith Cells 5-10 /hpf H (0-5/HPF) Amorphous Sediment 1+ Urine Bacteria Few (2-10) H (None) Urine Mucus 1+ H (Negative) Urine Yeast 1-5/hpf H (None) Ur Culture Indicated? Specimen cultured 12/22/19 12/22/19 Range/Units 12:50 12:50 WBC (4.5-11.0) X10^3/uL RBC (4.0-5.2) X10^6/uL Hgb (12.0-16.0) g/dL Hct (36-46) % MCV (80-100) fL MCH (26-34) PG MCHC (30-36) % RDW (11.6-14.8) % Plt Count (150-400) X10^3/uL Neut % (Auto) (50-75) % Lymph % (Auto) (25-40) % [place] % (Auto) (3-14) % Eos % (Auto) (2-4) % Baso % (Auto) (0-2) % Neut # (Auto) (5997-0352) /uL Lymph # (Auto) (2899-2534) /uL [place] # (Auto) (0-900) /uL Eos # (Auto) (0-450) /uL Baso # (Auto) (0-100) /uL Sodium 136 L (137-145) mmol/L Potassium 4.5 (3.4-5.1) mmol/L Chloride 104 (98-107) mmol/L Carbon Dioxide 26 (22-32) mmol/L BUN 9 (7-17) mg/dL Creatinine 0.67 (0.52-1.04) mg/dL Estimated GFR > 60.0 (>60) mL/min BUN/Creatinine Ratio 13.4 (6-22) Glucose 96 (70-100) mg/dL Lactate 0.6 L (0.7-2.1) mmol/L Calcium 9.2 (8.4-10.2) mg/dL Ferritin 33 (6-137) ng/mL Total Bilirubin 0.6 (0.2-1.3) mg/dL AST 21 (14-36) IU/L ALT 9 (<35) IU/L Alkaline Phosphatase 38 (38-126) U/L Lactate Dehydrogenase 324 (313-618) U/L Total Creatine Kinase 25 L (30-135) U/L CK-MB (CK-2) TNP CK-MB (CK-2) Rel Index TNP Troponin I < 0.012 (0.01-0.034) ng/mL C-Reactive Protein < 0.5 (<1.0) mg/dL NT-Pro-B Natriuret Pep 36 (<125) pg/mL Total Protein 7.8 (6.3-8.2) g/dL Albumin 4.3 (3.5-5.0) g/dL Globulin 3.5 (1.7-4.1) g/dL Albumin/Globulin Ratio 1.2 (1.0-2.8) Procalcitonin (<0.5) ng/mL Urine RBC (0-5/HPF) Urine WBC (0-5/HPF) Ur Squamous Epith Cells (0-5/HPF) Amorphous Sediment Urine Bacteria (None) Urine Mucus (Negative) Urine Yeast (None) Ur Culture Indicated? Point of Care Testing Test Results Negative Urine Dip Bedside Urine Glucose Negative Bedside Urine Bilirubin - Negative Bedside Urine Ketone - Negative Urine Specific [place] 1.015 Bedside Urine Occult Blood - Negative Bedside Urine pH 7.0 Bedside Urine Protein - Negative Bedside Urine Urobilinogen - Negative Bedside Urine Nitrite - Negative Bedside Urine Leukocytes +/- 15 Esterase Discharge Plan Departure Patient Disposition: Home Clinical Impression: Breath shortness, Viral infection Discharge Date/Time: 12/22/19 15:17 Instructions: DI for Cough -- Adult, DI for Viral Upper Respiratory Infection -- Adult, DI for Shortness of Breath Activity Restrictions/Additional Instructions: Thank you for trusting us with your care today Your lab work and imaging was very reassuring. [facility] Please follow-up with primary care provider in a few days. Please come back to emergency department for any acute concerns. You have been diagnosed with shortness of breath which based on your symptoms, labs and imaging is highly suspicious for coronavirus *What to do: * per recommendations from the CDC and the [facility] Department of Health * stay home except to get medical care. Restrict activities outside your home, except for getting medical care. Do not go to work, school, or public areas. Avoid using public transportation, ride sharing, or taxis. * separate yourself from other people in your home. * call ahead before visiting your doctor * Wear a face mask * Cover your coughs and sneezes * Clean your hands often * Avoid sharing household items * Clean all high-touch services every day * Monitor your symptoms and seek prompt medical attention if your illness is worsening, particularly with difficulty in breathing. Prescriptions: New ondansetron 4 mg tablet,disintegrating 4 mg PO Q6H PRN (Reason: nausea and vomiting) Qty: 14 RF: 0 No Action bupropion HCl [Wellbutrin SR] 150 mg tablet sustained-release 12 hr 150 mg PO DAILY Qty: 90 RF: 0 Mir[place]e Fe 1.5/30 (28) 1.5 mg-30 mcg (21)/75 mg (7) tablet 1 tab PO DAILY Qty: 168 RF: 0 dextroamphetamine-amphetamine [Adderall XR] 30 mg capsule,extended release 24hr 30 mg PO BID Qty: 60 RF: 0 hydrocodone-acetaminophen 5-325 mg tablet See Rx Instructions .ROUTE BID Qty: 60 RF: 0 dextroamphetamine-amphetamine [Adderall] 10 mg tablet 20 mg PO TID Qty: 180 RF: 0 Hold Instructions: provider's order meloxicam [Mobic] 15 mg tablet 15 mg PO DAILY Qty: 90 RF: 1 duloxetine 30 mg capsule,delayed release(DR/EC) 30 mg PO DAILY Qty: 90 RF: 1 Referrals: Davis Lawson DO [Primary Care Provider] -
[2019-12-22] MEDS: ONDANSETRON 4 MG ODT SL (12:30)
[2019-12-22 13:06] LABS: Add Manual Diff / Slide Review NO; Basophils Absolute Auto 0 /uL (0-100); Basophils Percent Auto 0.8 % (0-2); Eosinophils Absolute Auto 0 /uL (0-450); Eosinophils Percent Auto 0.4 % (2-4); Hemoglobin 15.6 g/dL (12.0-16.0); Lymphocytes Absolute Auto 1700 /uL (1100-4500); Lymphocytes Percent Auto 37.5 % (25-40); Mean Corpuscular HGB Conc 34.7 % (30-36); Mean Corpuscular Hemoglobin 32.4 PG (26-34); Mean Corpuscular Volume 93.5 fL (80-100); Monocytes Absolute Auto 400 /uL (0-900); Monocytes Percent Auto 8.2 % (3-14); Neutrophils Absolute Auto 2500 /uL (1500-7000); Neutrophils Percent Auto 53.1 % (50-75); Platelet Count 199 X10^3/uL (150-400); Red Blood Cell Count 4.81 X10^6/uL (4.0-5.2); Red Cell Distribution Width 12.2 % (11.6-14.8); White Blood Cell Count 4.6 X10^3/uL (4.5-11.0)
[2019-12-22 13:18] LABS: Lactate (Lactic Acid) 0.6 mmol/L (0.7-2.1)
[2019-12-22 13:23] LABS: Alanine Aminotransferase 9 IU/L (<35); Albumin 4.3 g/dL (3.5-5.0); Albumin Globulin Ratio 1.2 (1.0-2.8); Alkaline Phosphatase 38 U/L (38-126); Aspartate Aminotransferase 21 IU/L (14-36); BUN Creatinine Ratio 13.4 (6-22); Bilirubin Total 0.6 mg/dL (0.2-1.3); Blood Urea Nitrogen 9 mg/dL (7-17); Calcium 9.2 mg/dL (8.4-10.2); Carbon Dioxide 26 mmol/L (22-32); Chloride 104 mmol/L (98-107); Creatine Kinase 25 U/L (30-135); Estimated Glomerular Filt Rate > 60.0 mL/min (>60); Globulin 3.5 g/dL (1.7-4.1); Glucose 96 mg/dL (70-100); HEMOLYSIS < 15 (0-50); Lactate Dehydrogenase 324 U/L (313-618); Potassium 4.5 mmol/L (3.4-5.1); Sodium 136 mmol/L (137-145); Total Protein 7.8 g/dL (6.3-8.2)
[2019-12-22 13:25] LABS: C-Reactive Protein Quant < 0.5 mg/dL (<1.0)
[2019-12-22 13:30] VITALS: PULSE 97; RESP 17; O2SAT 99
[2019-12-22 13:33] LABS: NT-proBNP (BNP-Adult 18+) 36 pg/mL (<125); Troponin I < 0.012 ng/mL (0.01-0.034)
[2019-12-22 13:39] LABS: Procalcitonin < 0.05 ng/mL (<0.5)
[2019-12-22 13:56] LABS: Ferritin 33 ng/mL (6-137)
[2019-12-22 13:58] LABS: RBC Urine None Seen (0-5/HPF)
[2019-12-22 14:15] LABS: Amorphous Sediment Urine 1+; Bacteria Urine Few (2-10); Culture Indicated Urine Specimen Cultured; Mucus Urine 1+ (Negative); Squamous Epithelial Cell Urine 5-10 /HPF (0-5/HPF); WBC Urine 1-5/HPF (0-5/HPF)
[2019-12-22 15:16] VITALS: BP 121/87; PULSE 99; RESP 16; O2SAT 100
== END 2019-12-22 15:17 | disposition home or self-care (01) ==
PROVIDERS: Emergency Provider Nurse Practitioner Family; PCP Family Medicine
DX: J06.9 Acute upper respiratory infection, unspecified (principal); R06.02 Shortness of breath
CPT/HCPCS: 36415; 71046; 80053; 81003; 81015; 81025; 82550; 82728; 83605; 83615; 83880; 84145; 84484; 85025; 86140; 87086; 87635; 99283; 99284

== ENCOUNTER → 2020-03-25 14:32 | Outpatient (CLI) | payer OTHER, SELFPAY ==
--- NOTE | 2020-04-14 08:47 | PM.CARDMON.1 ---
Specialty Finishing Utility Person Report Referral & Results Date Patient Seen: 03/25/20 Requesting provider: Davis Lawson Indication: Palpitations Duration of monitoring (days): 7 Diary information: There were 10 patient triggered events and 3 patient diary entries. The triggered events were associated variably with sinus rhythm, PACs, ectopic atrial rhythm, and SVT/atrial tachycardia The patient diary entries were associated with PACs and sinus rhythm Data: Minimum heart rate identified was 63 beats per minute at 06:08 on 04/01/2020 Maximum sinus heart rate was 166 beats per minute at 10:38 on 03/30/2020 and was also the maximum overall heart rate Less than 1% of identified beats or either ventricular supraventricular ectopic in origin Patient had 2 runs of SVT/atrial tachycardia the fastest lasting 7 beats at a rate of 160 and this was also the longest run. Impression: 7 day bus monitor showing rare PACs as a possible source of symptom of palpitations. No other significant or serious dysrhythmias identified on this study
== END ==
PROVIDERS: Family Provider Family Medicine; PCP Family Medicine; Referring Provider Family Medicine; Visit Provider Family Medicine
DX: R53.83 Other fatigue (principal)
CPT/HCPCS: 0296T; 0298T

== ENCOUNTER → 2020-04-26 07:13 | Outpatient (CLI) | payer OTHER, SELFPAY ==
[2020-04-26 07:56] LABS: Erythrocyte Sedimentation Rate 2 MM/HR (0-20)
[2020-04-26 08:29] LABS: Cholesterol 170 mg/dL (140-199); HDL Cholesterol 50 mg/dL (40-60); LDL Cholesterol Calculated 99 mg/dL (<100); Magnesium 2.2 mg/dL (1.6-2.3); Triglycerides 105 mg/dL (35-150)
[2020-04-26 08:33] LABS: C-Reactive Protein Quant < 0.5 mg/dL (<1.0); Rheumatoid Factor < 8.6 IU/mL (<12.0)
[2020-04-26 08:58] LABS: Thyroid Stimulating Hormone 1.42 uIU/mL (0.47-4.68)
[2020-04-27 19:07] LABS: ANA Screen, IFA Positive (.)
== END ==
PROVIDERS: Family Provider Family Medicine; PCP Family Medicine; Referring Provider Nurse Practitioner; Visit Provider Nurse Practitioner
DX: R00.2 Palpitations (principal); R07.89 Other chest pain; R20.9 Unspecified disturbances of skin sensation; R06.02 Shortness of breath
CPT/HCPCS: 36415; 80061; 83735; 84443; 85651; 86038; 86140; 86430

== ENCOUNTER → 2020-07-19 11:59 | Outpatient (CLI) | payer OTHER, SELFPAY ==
[2020-07-19 13:11] LABS: Add Manual Diff / Slide Review NO; Basophils Absolute Auto 0 /uL (0-100); Eosinophils Absolute Auto 0 /uL (0-450); Eosinophils Percent Auto 0.2 % (2-4); Hematocrit 42.2 % (36-46); Hemoglobin 14.5 g/dL (12.0-16.0); Lymphocytes Absolute Auto 1600 /uL (1100-4500); Lymphocytes Percent Auto 37.9 % (25-40); Mean Corpuscular HGB Conc 34.4 % (30-36); Mean Corpuscular Hemoglobin 32.2 PG (26-34); Mean Corpuscular Volume 93.6 fL (80-100); Monocytes Absolute Auto 300 /uL (0-900); Monocytes Percent Auto 6.7 % (3-14); Neutrophils Absolute Auto 2300 /uL (1500-7000); Neutrophils Percent Auto 54.2 % (50-75); Platelet Count 200 X10^3/uL (150-400); Red Blood Cell Count 4.51 X10^6/uL (4.0-5.2); Red Cell Distribution Width 12.4 % (11.6-14.8); White Blood Cell Count 4.2 X10^3/uL (4.5-11.0)
[2020-07-19 14:14] LABS: Alanine Aminotransferase 9 IU/L (<35); Albumin 4.2 g/dL (3.5-5.0); Albumin Globulin Ratio 1.4 (1.0-2.8); Alkaline Phosphatase 34 U/L (38-126); Aspartate Aminotransferase 18 IU/L (14-36); BUN Creatinine Ratio 14.5 (6-22); Bilirubin Total 0.5 mg/dL (0.2-1.3); Blood Urea Nitrogen 10 mg/dL (7-17); Calcium 9.2 mg/dL (8.4-10.2); Carbon Dioxide 27 mmol/L (22-32); Chloride 104 mmol/L (98-107); Estimated Glomerular Filt Rate > 60.0 mL/min (>60); Globulin 3.1 g/dL (1.7-4.1); Glucose 101 mg/dL (70-100); HEMOLYSIS < 15 (0-50); Potassium 4.6 mmol/L (3.4-5.1); Sodium 136 mmol/L (137-145); Total Protein 7.3 g/dL (6.3-8.2)
== END ==
PROVIDERS: Family Provider Family Medicine; PCP Family Medicine; Referring Provider Family Medicine; Visit Provider Family Medicine
DX: R10.9 Unspecified abdominal pain (principal)
CPT/HCPCS: 36415; 80053; 85025

== ENCOUNTER → 2020-07-20 08:15 | Outpatient (CLI) | payer OTHER, SELFPAY ==
--- NOTE | 2020-07-20 08:16 | DI.CT.S_ITS ---
PROCEDURE: CT ABDOMEN PELVIS W CON INDICATIONS: Progressive abdominal pain status post procedure. TECHNIQUE: After the administration of oral and intravenous contrast, 5 mm thick sections acquired from the diaphragms to the symphysis. 5 mm thick coronal and sagittal reformats were performed. For radiation dose reduction, the following was used: automated exposure control, adjustment of mA and/or kV according to patient size. COMPARISON: None. FINDINGS: Image quality: Excellent. ABDOMEN: Lung bases: Lung bases are clear. Heart size is normal. Solid organs: Liver is normal in size and enhancement. Gallbladder appears normal where well seen . Biliary system is non-dilated. Pancreas enhances normally. Spleen is normal in size and enhancement. No adrenal nodules. Kidneys are normal in size and enhancement, without hydronephrosis. Peritoneum and bowel: Stomach, small bowel, and colon loops are normal in caliber and wall thickness. No free fluid or air. There is moderate colonic obstipation, right greater than left. Nodes and vessels: No retroperitoneal or mesenteric adenopathy. Aorta and inferior vena cava are normal in caliber. Miscellaneous: No ventral hernias. PELVIS: Genitourinary: Bladder wall thickness is normal. Miscellaneous: No inguinal hernias or adenopathy. Moderate right greater than left colonic obstipation. Bones: No suspicious bony lesions. No vertebral body compression fractures. IMPRESSION: Colonic obstipation, right greater than left, otherwise normal. Source of progressive abdominal pain is not found otherwise. Dictated by: Vlad Quarles M.D. on 07/20/2020 at 14:46 Approved by: Vlad Quarles M.D. on 07/20/2020 at 14:48
== END ==
PROVIDERS: Family Provider Family Medicine; PCP Family Medicine; Referring Provider Family Medicine; Visit Provider Family Medicine
DX: R10.9 Unspecified abdominal pain (principal); G89.18 Other acute postprocedural pain; K59.00 Constipation, unspecified
CPT/HCPCS: 74177; Q9967

== ENCOUNTER → 2021-06-14 10:26 | Outpatient (CLI) | payer OTHER, SELFPAY ==
[2021-06-14 12:22] LABS: COVID19 -Nasal RAPID Negative (Negative)
== END ==
PROVIDERS: Family Provider Family Medicine; PCP Family Medicine; Visit Provider Physician Assistant
DX: Z20.822 Contact with and (suspected) exposure to COVID-19 (principal); R09.89 Other specified symptoms and signs involving the circulatory and respiratory systems; R52 Pain, unspecified; R68.83 Chills (without fever)
CPT/HCPCS: 87635

== ENCOUNTER → 2021-06-30 08:53 | Outpatient (CLI) | payer OTHER, SELFPAY ==
[2021-06-30 09:40] LABS: COVID19 -Nasal RAPID Negative (Negative)
== END ==
PROVIDERS: Family Provider Family Medicine; PCP Family Medicine; Referring Provider Nurse Practitioner; Visit Provider Nurse Practitioner
DX: Z20.822 Contact with and (suspected) exposure to COVID-19 (principal); J02.9 Acute pharyngitis, unspecified; R53.83 Other fatigue
CPT/HCPCS: 87070; 87077; 87147; 87635

== ENCOUNTER → 2021-08-09 07:41 | Outpatient (CLI) | payer OTHER, SELFPAY ==
[2021-08-09 08:41] LABS: COVID19 -Nasal RAPID Negative (Negative)
== END ==
PROVIDERS: Family Provider Family Medicine; PCP Family Medicine; Referring Provider Physician Assistant; Visit Provider Physician Assistant
DX: Z20.822 Contact with and (suspected) exposure to COVID-19 (principal); J02.9 Acute pharyngitis, unspecified
CPT/HCPCS: 87070; 87077; 87147; 87635

== ENCOUNTER → 2021-09-05 15:41 | Outpatient (CLI) | payer OTHER, SELFPAY ==
--- NOTE | 2021-09-05 15:42 | DI.CT.S_ITS ---
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 For radiation dose reduction, the following was used: automated exposure control, adjustment of mA and/or kV according to patient size. COMPARISON: None. FINDINGS: Image quality: Excellent. Postsurgical changes noted in the left maxilla compatible with reported history of palate reconstruction for oral cancer. No osseous erosive changes. No definite evidence of tumor recurrence, however study is optimized for evaluation of the paranasal sinuses. 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 Paranasal sinuses are normally aerated. 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 No mucosal thickening. No air-fluid levels. The ostiomeatal units are patent bilaterally. Nasal septum is slightly deviated to the right. No osseous thickening, osseous remodeling or osseous erosive changes. No paradoxical turbinates. No tl bullosa. IMPRESSION: 1. Postsurgical changes compatible with left maxilla/hard palate reconstruction. 2. No definite evidence of recurrent oral carcinoma. If there is clinical concern for recurrent oral carcinoma consider maxillofacial CT scan with contrast for additional evaluation. 3. No paranasal sinus mucosal thickening or air-fluid levels. Dictated by: Mary Brown MD, PhD on 09/05/2021 at 16:50 Approved by: Mary Brown MD, PhD on 09/05/2021 at 17:05
== END ==
PROVIDERS: Family Provider Family Medicine; PCP Family Medicine; Referring Provider Family Medicine; Visit Provider Family Medicine
DX: Z85.818 Personal history of malignant neoplasm of other sites of lip, oral cavity, and pharynx (principal); Z08 Encounter for follow-up examination after completed treatment for malignant neoplasm
CPT/HCPCS: 70486

== ENCOUNTER → 2021-10-21 07:43 | Outpatient (CLI) | payer OTHER, SELFPAY ==
[2021-10-21 09:30] LABS: Influenza A - CEPHEID Flu A NEGATIVE (NEGATIVE); Influenza B - CEPHEID Flu B NEGATIVE (NEGATIVE)
[2021-10-21 09:31] LABS: COVID-19 CEPHEID PCR (VTM/NP) Negative (Negative)
== END ==
PROVIDERS: Family Provider Family Medicine; PCP Family Medicine; Visit Provider Physician Assistant
DX: Z20.822 Contact with and (suspected) exposure to COVID-19 (principal); J02.9 Acute pharyngitis, unspecified
CPT/HCPCS: 0240U; 87070

== ENCOUNTER → 2021-12-27 15:18 | Outpatient (CLI) | payer OTHER, SELFPAY ==
[2021-12-30 00:36] LABS: Chlamydia trachomatis Negative (Negative); Mycoplasma genitalium Negative (Negative); Neisseria gonorrhoeae Negative (Negative)
== END ==
PROVIDERS: Family Provider Family Medicine; PCP Family Medicine; Visit Provider Obstetrics & Gynecology
DX: N76.0 Acute vaginitis (principal)
CPT/HCPCS: 87491; 87563; 87591

== ENCOUNTER → 2022-01-26 15:59 | Outpatient (ROUT) | payer OTHER, SELFPAY ==
[2022-01-27 09:16] LABS: Candida species Positive (Negative); Gardnerella vaginalis Negative (Negative); Trichomoas vaginalis Negative (Negative)
== END ==
PROVIDERS: Family Provider Family Medicine; PCP Family Medicine; Visit Provider Obstetrics & Gynecology
DX: N76.0 Acute vaginitis (principal)
CPT/HCPCS: 87480; 87510; 87660

== ENCOUNTER → 2022-08-18 09:57 | Outpatient (CLI) | payer OTHER, SELFPAY ==
[2022-08-18 12:37] LABS: Appearance Urine UA SL CLOUDY; Bilirubin Urine UA NEGATIVE (NEGATIVE); Color Urine UA YELLOW; Glucose Urine UA TRACE g/dL (Negative); Ketones Urine UA TRACE (NEGATIVE); Leukocyte Esterase Urine UA 1+ (NEGATIVE); Nitrite Urine UA NEGATIVE (Negative); Occult Blood Urine UA 2+ (Negative); Protein Urine UA 1+ (Negative); Specific Gravity Urine UA >=1.030 (1.000-1.035)
[2022-08-18 12:48] LABS: Amorphous Sediment Urine 1+; Bacteria Urine Many (>30); Mucus Urine 1+ (Negative); RBC Urine 1-5/HPF (0-5/HPF); Squamous Epithelial Cell Urine 1-5 /HPF (0-5/HPF); WBC Urine 30-100/HPF (0-5/HPF)
== END ==
PROVIDERS: Family Provider Family Medicine; PCP Family Medicine; Visit Provider Nurse Practitioner Family
DX: R30.0 Dysuria (principal); R35.0 Frequency of micturition
CPT/HCPCS: 81001; 87077; 87086; 87186

== ENCOUNTER 2022-08-19 13:41 | Emergency (ER) | payer OTHER, SELFPAY ==
[2022-08-19 15:04] VITALS: BP 110/70; PULSE 101; RESP 18; TEMP 36.5; O2SAT 99; BMI 19.2
[2022-08-19 15:19] LABS: Appearance Urine UA Clear; Color Urine UA Orange
[2022-08-19 15:29] LABS: RBC Urine 1-5/HPF (0-5/HPF); Squamous Epithelial Cell Urine 1-5 /HPF (0-5/HPF); WBC Urine 1-5/HPF (0-5/HPF)
[2022-08-19 15:30] LABS: Bacteria Urine Few (2-10); Culture Indicated Urine Cult Not Indicated; Hyaline Casts Urine 0-1/LPF
--- NOTE | 2022-08-19 17:51 | ED_ITS ---
HPI - Female Genitourinary <Nathalie Borden, JOB PLACEMENT COUNSELOR - Last Filed: 08/19/22 17:55> General Chief complaint: Urogenital-Female Stated complaint: poss Kidney infection per pt Time Seen by Provider: 08/19/22 17:13 Source: patient Mode of arrival: Family Vehicle History of Present Illness HPI Narrative: This is a 37-year-old female presents to the emergency department complaining of worsening suprapubic pain with right-sided flank pain, states that she had dysuria, urinary frequency and was prescribed Macrobid in the walk-in clinic yesterday, she is been taking that with Pyridium and has had worsening of her symptoms. She denies fever, chills, endorses having nausea without vomiting. Patient complains of pain when she voids, denies any abnormal vaginal discharge, states that her history of allergy to amoxicillin with a rash in when she was a child. Denies any new sexual partners or possibility of . Related Data Previous Rx's Medication Instructions Recorded bupropion HCl 300 mg 24 hr tablet, 300 mg PO QAM #90 tabs 08/17/21 extended release norethindrone 1.5 mg-ethinyl 1 tab PO DAILY #168 tabs 08/19/21 estradiol 30 mcg(21)/iron 75 mg(7) tablet (Mir[place]e Fe 1.5/30 (28)) trazodone 50 mg tablet 50 mg PO BEDTIME #30 tabs 09/08/21 clindamycin phosphate 2 % vaginal 1 appful vaginal BEDTIME #40 grams 01/04/22 cream (Cleocin) doxycycline hyclate 100 mg capsule 100 mg PO BID #10 caps 01/04/22 (Vibramycin) fluconazole 150 mg tablet 150 mg PO Q3D 2 doses #2 tabs 01/04/22 (Diflucan) fluconazole 150 mg tablet 150 mg PO Q3D 2 doses #2 tabs 01/27/22 (Diflucan) triamcinolone acetonide 0.5 % 1 applic topical TID #15 grams 05/26/22 topical ointment hydrocodone 5 mg-acetaminophen 325 See Rx Instructions .Route BID 08/01/22 mg tablet pain #60 tabs nitrofurantoin 100 mg PO Q12H 5 days #10 caps 08/18/22 monohydrate/macrocrystals 100 mg capsule (Macrobid) phenazopyridine 200 mg tablet 200 mg PO TID 6 doses #6 tabs 08/18/22 (Pyridium) cefuroxime axetil 500 mg tablet 500 mg PO BID 7 days #14 tabs 08/19/22 ondansetron 4 mg disintegrating 4 mg PO Q8H #14 tabs 08/19/22 tablet dextroamphetamine sulfate 10 mg 20 mg PO BID #120 caps 08/21/22 capsule,extended release Allergies Allergy/AdvReac Type Severity Reaction Status Date / Time amoxicillin Allergy Severe Rash Verified 08/19/22 15:04 Review of Systems <TOYA Lagunas - Last Filed: 08/19/22 17:55> Review of Systems Narrative: Review of systems is negative for acute abnormalities unless otherwise noted in HPI Patient History <TOYA Lagunas - Last Filed: 08/19/22 17:55> Medical History Abdominal pain Abnormal Pap smear of cervix (~2006) Bronchitis Gastroparesis Palpitations Polyarthralgia Surgical History Anesthesia History of laparoscopy History of oral surgery (~10/2000) History of surgery alcohol intake frequency: 0-2 drinks per day Substance Use Type: does not use Exam <TOYA Lagunas - Last Filed: 08/19/22 17:55> Narrative Exam Narrative: Reviewed vitals signs and nursing notes. General: cooperative, comfortable, in no acute distress, well groomed HEENT: symmetrical facial expressions, moist mucous membranes GI: Abdomen soft, nondistended, right-sided flank pain to palpation, suprapubic pain to palpation without fever, chills, vomiting MSK: moves all extremities, neurovascularly intact, no weakness, normal tone Skin: brisk capillary refill, without pallor or erythema Neuro: normal speech and cognition, A&O x3, ambulatory, clear speech Psych: mental status is grossly normal, congruent mood, normal affect, pleasant and cooperative Initial Vital Signs Initial Vital Signs: Vital Signs Temperature 97.7 F 08/19/22 15:04 Pulse Rate 101 H 08/19/22 15:04 Respiratory Rate 18 08/19/22 15:04 Blood Pressure 110/70 12/03/22 15:04 Pulse Oximetry 99 08/19/22 15:04 Oxygen Delivery Method 08/19/22 15:04 <Anu Agrawal DO - Last Filed: 08/21/22 12:36> Initial Vital Signs Initial Vital Signs: Vital Signs Temperature 97.7 F 08/19/22 15:04 Pulse Rate 101 H 08/19/22 15:04 Respiratory Rate 18 08/19/22 15:04 Blood Pressure 110/70 08/19/22 15:04 Pulse Oximetry 99 08/19/22 15:04 Oxygen Delivery Method 08/19/22 15:04 Course <MADELIN LagunasP - Last Filed: 08/19/22 17:55> Orders Ordered: ED Orders 08/19/22 15:10 Urinalysis and Microscopic Stat Vital Signs Vital signs: Vital Signs - 8 hr 08/19/22 15:04 Temperature 97.7 F Pulse Rate 101 H Respiratory Rate 18 Blood Pressure 110/70 Pulse Oximetry 99 Oxygen Delivery Method Room Air <Anu Agrawal DO - Last Filed: 08/21/22 12:36> Orders Ordered: ED Orders 08/19/22 15:10 Urinalysis and Microscopic Stat Vital Signs Vital signs: Vital Signs - 8 hr 08/19/22 15:04 Temperature 97.7 F Pulse Rate 101 H Respiratory Rate 18 Blood Pressure 110/70 Pulse Oximetry 99 Oxygen Delivery Method Room Air MDM - Female Genitourinary <MADELIN LagunasP - Last Filed: 08/19/22 17:55> Lab Data Labs: Lab Results 08/19/22 Range/Units 15:10 Urine Color Stanton Urine Appearance Clear Urine pH TNP Ur Specific [place] TNP Urine Protein TNP Urine Glucose (UA) TNP Urine Ketones TNP Urine Occult Blood TNP Urine Nitrate TNP Urine Bilirubin TNP Urine Urobilinogen TNP Ur Leukocyte Esterase TNP Urine RBC 1-5/hpf (0-5/HPF) Urine WBC 1-5/hpf (0-5/HPF) Ur Squamous Epith Cells 1-5 /hpf (0-5/HPF) Urine Bacteria Few (2-10) H (None) Hyaline Casts 0-1/lpf (None) Ur Culture Indicated? Cult not indicated MDM Narrative Medical decision making narrative: This is a 37-year-old female returns to the emergency department with worsening dysuria, urinary frequency urgency symptoms after starting Macrobid for UTI yesterday after her visit in the walk-in clinic. Patient right-sided flank pain, endorses nausea and concern for nephrolithiasis pyelonephritis, colitis patient's urine today shows ongoing bacteria, it is improved from yesterday however her urine culture has not completed yet and it is growing gram-negative bacilli. No peritoneal signs on abdominal exam. Patient remains p.o. tolerant. Serial abdominal exam without increase in abdominal pain. Given history and exam, low suspicion for acute abdominal process, such as acute cholecystitis, pancreatitis, perforated viscus, atypical appendicitis, colitis, diverticulitis or torsion. Extensive conversation about ER return precautions and need for close follow-up. She was prescribed cefuroxime and Zofran for her symptoms, encouraged to stay hydrated, use ibuprofen every 6 hours, Tylenol with that, and keeps using her Pyridium until her symptoms start to improve. She is given strict return precautions, she has right-sided tenderness, discussed that be due to a kidney stone as well but less likely since she did not have blood in her urine today and her symptoms started with dysuria. Patient understands to return emergency department if she has worsening. Patient is appropriate and amenable to discharge home. Vital signs are stable on repeat examination is unremarkable. Patient has been informed of results. Patient has been given strict return to ER precautions for any new or worsening symptoms. Patient understands to follow up closely with outpatient providers as instructed. Patient understands plan and agrees to discharge home. All questions and concerns answered at this time. <Anu Agrawal, DO - Last Filed: 08/21/22 12:36> Lab Data Labs: Lab Results 08/19/22 Range/Units 15:10 Urine Color Stanton Urine Appearance Clear Urine pH TNP Ur Specific [place] TNP Urine Protein TNP Urine Glucose (UA) TNP Urine Ketones TNP Urine Occult Blood TNP Urine Nitrate TNP Urine Bilirubin TNP Urine Urobilinogen TNP Ur Leukocyte Esterase TNP Urine RBC 1-5/hpf (0-5/HPF) Urine WBC 1-5/hpf (0-5/HPF) Ur Squamous Epith Cells 1-5 /hpf (0-5/HPF) Urine Bacteria Few (2-10) H (None) Hyaline Casts 0-1/lpf (None) Ur Culture Indicated? Cult not indicated Discharge Plan Departure Patient Disposition: Home Clinical Impression: Complicated urinary tract infection, Urinary tract infection Instructions: DI for Kidney Infection, DI for Urinary Tract Infection (UTI) Activity Restrictions/Additional Instructions: *You have been diagnosed with bladder infection which is ascending. Please take these antibiotics, hopefully they help you feel better soon. Please come back if you do not feel well again. Please stay hydrated, use ibuprofen 600 mg every 6 hours as needed, Tylenol in addition to that. You can keep using your Pyridium to help with your symptoms. I gave you an antibiotic that is similar to amoxicillin but very different, if you develop a rash, please come back in or call for a different plan, I do not suspect that you will. I have given you Zofran as well to use for nausea vomiting, thank you for your patience, tomorrow we will know which antibiotic will work best for your bacteria but your urine culture has not resulted yet so this should be our best bet. Please knot picker cloth your antibiotics at [facility]. *What to do: *Please continue to take your regular medications as directed. [ x] New medication prescriptions sent to your pharmacy: [[facility] ] [ ] New medication written as a paper prescription [ ] No new medications given *Please follow up with your primary care provider in 2-3 days, call for an appointment. Let them know you were seen in the Emergency Department and that we asked that you be seen for follow-up. We will electronically transmit a record of today's note if your PCP is in our system *If you do not have a primary care provider please contact [phone] to establish care with one of [facility] primary care providers. *Return to Emergency Department if you should have any new, worsening, or concerning symptoms, such as [fever greater than 101F, chills, worsening pain, persistent vomiting or other bothersome symptoms]. Prescriptions: New cefuroxime axetil 500 mg tablet 500 mg PO BID 7 Days Qty: 14 0RF ondansetron 4 mg tablet,disintegrating 4 mg PO Q8H Qty: 14 0RF No Action triamcinolone acetonide 0.5 % ointment 1 applic topical TID Qty: 15 0RF nitrofurantoin monohyd/m-cryst [Macrobid] 100 mg capsule 100 mg PO Q12H 5 Days Qty: 10 0RF Rx Instructions: must administer with a meal/food phenazopyridine [Pyridium] 200 mg tablet 200 mg PO TID 0 Days Qty: 6 0RF Mirlande Fe 1.5/30 (28) 1.5 mg-30 mcg (21)/75 mg (7) tablet 1 tab PO DAILY Qty: 168 3RF Rx Instructions: Skip the placebo and take the active pills continuously trazodone 50 mg tablet 50 mg PO BEDTIME Qty: 30 1RF clindamycin phosphate [Cleocin] 2 % cream 1 appful vaginal BEDTIME Qty: 40 0RF Rx Instructions: for 3 days doxycycline hyclate [Vibramycin] 100 mg capsule 100 mg PO BID Qty: 10 0RF fluconazole [Diflucan] 150 mg tablet 150 mg PO Q3D Qty: 2 0RF Rx Instructions: may repeat second dose 72 hrs after first dose if symptoms persist fluconazole [Diflucan] 150 mg tablet 150 mg PO Q3D Qty: 2 4RF Rx Instructions: Repeat second dose 72 hrs after first dose. hydrocodone-acetaminophen 5-325 mg tablet See Rx Instructions .ROUTE BID Qty: 60 0RF Dose Instruction: 1/2-1 tab PO BID ; Rx Instructions: 1/2-1 tab by mouth twice a day. limit as possible. caution regarding sedation/falls. dextroamphetamine sulfate 10 mg capsule, extended release 20 mg PO BID Qty: 120 0RF bupropion HCl 300 mg tablet extended release 24 hr 300 mg PO QAM Qty: 90 1RF Referrals: Davis Lawson DO [Primary Care Provider] - Visit Report Forms: Patient Portal/API <Anu Agrawal DO - Last Filed: 08/21/22 12:36> Cosign ED Attending Cosleloature Attestation: I was immediately available in the department for consultation. Documentation has been reviewed.
== END 2022-08-19 17:35 | disposition home or self-care (01) ==
PROVIDERS: Emergency Medicine; Emergency Provider Nurse Practitioner Critical Care Medicine; Family Provider Family Medicine; PCP Family Medicine
DX: N39.0 Urinary tract infection, site not specified (principal)
CPT/HCPCS: 81001; 99281; 99282

== ENCOUNTER → 2022-08-24 07:49 | Outpatient (CLI) | payer OTHER, SELFPAY ==
--- NOTE | 2022-08-24 07:50 | DI.CT.S_ITS ---
PROCEDURE: CT KIDNEY URETER BLADDER (KUB) INDICATIONS: kidney pain TECHNIQUE: Axial sections were acquired from the lung bases to the pubic symphysis. Coronal and sagittal reformats were performed. For radiation dose reduction, the following was used: automated exposure control, adjustment of mA and/or kV according to patient size. COMPARISON: [facility], CT, CT ABDOMEN PELVIS W CON, 07/20/2020, 9:44. FINDINGS: Image quality: Excellent. Lung bases: Unremarkable. Heart: No significant findings. URINARY: Right Kidney: No stones or hydronephrosis. Right Ureter: No hydroureter. Left Kidney: No stones or hydronephrosis. Left Ureter: No hydroureter. Bladder: Normal wall thickness. No stones. ABDOMEN: Liver: Unremarkable. Gallbladder: Unremarkable. Biliary ducts: Unremarkable. Pancreas: Unremarkable. Spleen: Within normal limits. Small splenule is noted inferior to the spleen.. Adrenal Glands: Unremarkable. Stomach and Bowel: There is no bowel obstruction. No stomach, small bowel or colon wall thickening. Moderate fecal stasis throughout the colon is seen. No abscess collection. No free fluid or free air. Peritoneum: No abnormal intraperitoneal fluid. No free air. Ventral Wall: No hernia. Abdominal Nodes: No enlarged retroperitoneal or mesenteric lymph nodes. Vessels: Aorta and inferior vena cava are normal in size. PELVIS: Pelvic Organs: Unremarkable. Pelvic Nodes: Unremarkable. Miscellaneous: No inguinal hernias are seen. Bones: No suspicious bony lesions. No acute vertebral body compression fracture. IMPRESSION: 1. No renal stones or hydronephrosis. No hydroureter. Normal appearing urinary bladder. 2. Moderate constipation and obstipation. No bowel wall thickening. No free fluid or free air. Dictated by: Dilip Matthew M.D. on 08/24/2022 at 9:19 Approved by: Dilip Matthew M.D. on 08/24/2022 at 9:39
== END ==
PROVIDERS: Family Provider Family Medicine; PCP Family Medicine; Referring Provider Nurse Practitioner; Visit Provider Nurse Practitioner
DX: R30.0 Dysuria (principal); N23 Unspecified renal colic; K59.00 Constipation, unspecified
CPT/HCPCS: 74176

== ENCOUNTER → 2022-08-30 15:04 | Outpatient (CLI) | payer OTHER, SELFPAY ==
[2022-08-30 15:40] LABS: Add Manual Diff / Slide Review NO; Basophils Absolute Auto 100 /uL (0-100); Basophils Percent Auto 0.9 % (0-2); Eosinophils Absolute Auto 0 /uL (0-450); Eosinophils Percent Auto 0.6 % (2-4); Hematocrit 40.4 % (36-46); Hemoglobin 13.8 g/dL (12.0-16.0); Lymphocytes Absolute Auto 1700 /uL (1100-4500); Lymphocytes Percent Auto 30.9 % (25-40); Mean Corpuscular HGB Conc 34.1 % (30-36); Mean Corpuscular Hemoglobin 31.1 PG (26-34); Mean Corpuscular Volume 91.1 fL (80-100); Monocytes Absolute Auto 400 /uL (0-900); Monocytes Percent Auto 6.9 % (3-14); Neutrophils Absolute Auto 3300 /uL (1500-7000); Neutrophils Percent Auto 60.7 % (50-75); Platelet Count 252 X10^3/uL (150-400); Red Blood Cell Count 4.43 X10^6/uL (4.0-5.2); Red Cell Distribution Width 12.8 % (11.6-14.8); White Blood Cell Count 5.5 X10^3/uL (4.5-11.0)
[2022-08-30 16:11] LABS: Appearance Urine UA CLEAR; Bilirubin Urine UA NEGATIVE (NEGATIVE); Color Urine UA YELLOW; Glucose Urine UA NEGATIVE (Negative); Ketones Urine UA NEGATIVE (NEGATIVE); Leukocyte Esterase Urine UA TRACE (NEGATIVE); Nitrite Urine UA NEGATIVE (Negative); Occult Blood Urine UA NEGATIVE (Negative); Protein Urine UA 1+ (Negative); Urobilinogen Urine UA 0.2 E.U./dL (0.2)
[2022-08-30 16:24] LABS: Amorphous Sediment Urine 1+; Bacteria Urine Occasional (0-1); Culture Indicated Urine Specimen Cultured; RBC Urine None Seen (0-5/HPF); Squamous Epithelial Cell Urine 0-1 /HPF (0-5/HPF); WBC Urine 1-5/HPF (0-5/HPF)
== END ==
PROVIDERS: Family Provider Family Medicine; PCP Family Medicine; Referring Provider Family Medicine; Visit Provider Family Medicine
DX: N39.0 Urinary tract infection, site not specified (principal)
CPT/HCPCS: 36415; 81001; 85025; 87086

== ENCOUNTER → 2022-09-06 15:14 | Outpatient (CLI) | payer OTHER, SELFPAY ==
[2022-09-06 16:42] LABS: Add Manual Diff / Slide Review NO; Basophils Absolute Auto 0 /uL (0-100); Basophils Percent Auto 0.9 % (0-2); Eosinophils Absolute Auto 0 /uL (0-450); Eosinophils Percent Auto 1.1 % (2-4); Hematocrit 41.1 % (36-46); Hemoglobin 13.9 g/dL (12.0-16.0); Lymphocytes Absolute Auto 1900 /uL (1100-4500); Lymphocytes Percent Auto 44.2 % (25-40); Mean Corpuscular HGB Conc 33.8 % (30-36); Mean Corpuscular Hemoglobin 30.7 PG (26-34); Mean Corpuscular Volume 90.7 fL (80-100); Monocytes Absolute Auto 300 /uL (0-900); Monocytes Percent Auto 8.2 % (3-14); Neutrophils Absolute Auto 1900 /uL (1500-7000); Neutrophils Percent Auto 45.6 % (50-75); Platelet Count 227 X10^3/uL (150-400); Red Blood Cell Count 4.53 X10^6/uL (4.0-5.2); Red Cell Distribution Width 12.8 % (11.6-14.8); White Blood Cell Count 4.2 X10^3/uL (4.5-11.0)
[2022-09-06 16:52] LABS: Appearance Urine UA CLEAR; Bilirubin Urine UA NEGATIVE (NEGATIVE); Color Urine UA YELLOW; Glucose Urine UA NEGATIVE (Negative); Ketones Urine UA NEGATIVE (NEGATIVE); Leukocyte Esterase Urine UA NEGATIVE (NEGATIVE); Nitrite Urine UA NEGATIVE (Negative); Occult Blood Urine UA NEGATIVE (Negative); Protein Urine UA NEGATIVE (Negative); Urobilinogen Urine UA 0.2 E.U./dL (0.2)
[2022-09-06 17:16] LABS: Bacteria Urine Few (2-10); Culture Indicated Urine Cult Not Indicated; Mucus Urine 1+ (Negative); RBC Urine 0-1/HPF (0-5/HPF); Squamous Epithelial Cell Urine 0-1 /HPF (0-5/HPF); WBC Urine 1-5/HPF (0-5/HPF)
== END ==
PROVIDERS: Family Provider Family Medicine; PCP Family Medicine; Referring Provider Family Medicine; Visit Provider Family Medicine
DX: R35.0 Frequency of micturition (principal); R39.15 Urgency of urination; Z87.440 Personal history of urinary (tract) infections
CPT/HCPCS: 36415; 81001; 85025

== ENCOUNTER → 2022-11-07 13:33 | Outpatient (CLI) | payer OTHER, SELFPAY ==
[2022-11-07 14:24] LABS: COVID-19 CEPHEID 4-PLEX PCR Negative (Negative); Influenza A - CEPHEID Flu A NEGATIVE (NEGATIVE); Influenza B - CEPHEID Flu B NEGATIVE (NEGATIVE); Respiratory Syncytial Virus Negative (Negative)
== END ==
PROVIDERS: Family Provider Family Medicine; PCP Family Medicine; Visit Provider Registered Nurse
DX: R05.1 Acute cough (principal)
CPT/HCPCS: 0241U

== ENCOUNTER → 2022-12-25 11:34 | Outpatient (CLI) | payer OTHER, SELFPAY ==
[2022-12-26 11:14] LABS: Candida species Positive (Negative); Gardnerella vaginalis Negative (Negative); Trichomoas vaginalis Negative (Negative)
== END ==
PROVIDERS: Family Provider Family Medicine; PCP Family Medicine; Visit Provider Obstetrics & Gynecology
DX: N89.8 Other specified noninflammatory disorders of vagina (principal); N89.9 Noninflammatory disorder of vagina, unspecified
CPT/HCPCS: 87480; 87510; 87660

== ENCOUNTER → 2023-01-03 09:29 | Outpatient (CLI) | payer OTHER, SELFPAY ==
[2023-01-04 13:10] LABS: Candida species Positive (Negative); Gardnerella vaginalis Negative (Negative); Trichomoas vaginalis Negative (Negative)
== END ==
PROVIDERS: Family Provider Family Medicine; PCP Family Medicine; Visit Provider Obstetrics & Gynecology
DX: N76.0 Acute vaginitis (principal); R10.2 Pelvic and perineal pain
CPT/HCPCS: 87086; 87480; 87510; 87660

== ENCOUNTER → 2023-01-18 10:23 | Outpatient (CLI) | payer OTHER, SELFPAY ==
--- NOTE | 2023-01-18 10:24 | DI.US.S_ITS ---
PROCEDURE: US PELVIC COMPLETE INDICATIONS: Chronic pelvic pain TECHNIQUE: Real-time scanning was performed of the pelvic organs, with image documentation. Additional endovaginal scanning was necessary due to incomplete visualization of the adnexal and endometrial structures by transabdominal scanning. COMPARISON: [facility], CT, CT KIDNEY URETER BLADDER (KUB), 08/24/2022, 7:54. [facility], US, PELVIC COMPLETE, 11/04/2012, 14:36. FINDINGS: Uterus: Uterus is anteverted and normal in size at 8.3 x 5.7 x 3.7 cm. The myometrium is heterogeneous. Punctate echogenic foci can be seen within the fundal endometrium measures up to 1.5 mm. Within the mid endometrium, there is a hyperechoic nonvascular area seen that measures up to 2.6 mm. This is seen adjacent to anechoic endocervical fluid. The endometrium measures 3-4 mm combined thickness. Ovaries: The right ovary measures 222 1.7 x 1.8 x 1.2 cm, with a calculated ovarian volume of 1.9 cc. Less than 12 follicles can be seen involving the right ovary. Normal appearing arterial and venous waveforms are confirmed to the right ovary. The left ovary is not well seen. No adnexal masses are seen on either side. Other: No pathologic free abdominal or pelvic fluid. The postvoid residual is 295 cc. IMPRESSION: Potential 2.6 mm endometrial polyp. If clinically appropriate, please consider sonohysterogram versus hysteroscopy. Normal appearing right ovary, without torsion. The left ovary is not well seen. Moderate to prominent postvoid residual, 295 cc. We strive to produce accurate, complete, and clear reports of imaging services. To assist us in improving patient care, this report was composed using standard report templates and voice recognition software. Therefore, it may contain abnormal punctuation, insertions and/or omissions. Occasional wrong-word or sound-alike substitutions may occur. Though we review the report and make efforts to correct it, we do recommend that the report be read carefully in proper context to recognize any text inaccuracies. Dictated by: Tristan Briones M.D. on 01/18/2023 at 11:53 Approved by: Tristan Briones M.D. on 01/18/2023 at 11:56
== END ==
PROVIDERS: Family Provider Family Medicine; PCP Family Medicine; Referring Provider Obstetrics & Gynecology; Visit Provider Obstetrics & Gynecology
DX: R10.2 Pelvic and perineal pain (principal)
CPT/HCPCS: 76830; 76856

== ENCOUNTER → 2023-02-01 17:23 | Outpatient (CLI) | payer OTHER, SELFPAY ==
--- NOTE | 2023-02-01 17:24 | DI.RAD.S_ITS ---
PROCEDURE: XR CHEST 2V INDICATIONS: 2 weeks cough, short of breath TECHNIQUE: 2 views of the chest were acquired. COMPARISON: [facility], [place], XR CHEST 2V, 12/22/2019, 12:49. FINDINGS: Surgical changes and devices: None. Lungs and pleura: Lungs are clear. No pleural effusions or pneumothorax. Mediastinum: Mediastinal contours are normal. Heart size is normal. Bones and chest wall: No suspicious bony abnormalities. Soft tissues appear unremarkable. IMPRESSION: No acute cardiopulmonary disease. Dictated by: Belén Gaona M.D. on 02/01/2023 at 17:44 Approved by: Belén Gaona M.D. on 02/01/2023 at 17:45
== END ==
PROVIDERS: Family Provider Family Medicine; PCP Family Medicine; Referring Provider Student in an Organized Health Care Education/Training Program; Visit Provider Student in an Organized Health Care Education/Training Program
DX: R05.8 Other specified cough (principal); J06.9 Acute upper respiratory infection, unspecified
CPT/HCPCS: 0241U; 71046

== ENCOUNTER → 2023-02-01 17:32 | Outpatient (CLI) | payer OTHER, SELFPAY ==
[2023-02-01 18:15] LABS: Influenza A - CEPHEID Flu A NEGATIVE (NEGATIVE); Influenza B - CEPHEID Flu B NEGATIVE (NEGATIVE); Respiratory Syncytial Virus Negative (Negative)
[2023-02-01 18:16] LABS: COVID-19 CEPHEID 4-PLEX PCR Negative (Negative)
== END ==
PROVIDERS: Family Provider Family Medicine; PCP Family Medicine; Visit Provider Student in an Organized Health Care Education/Training Program
DX: J06.9 Acute upper respiratory infection, unspecified (principal)
CPT/HCPCS: 0241U

== ENCOUNTER 2023-02-26 12:30 | Outpatient (RCR) | payer OTHER, SELFPAY ==
--- NOTE | 2023-01-16 19:20 | PT.OIE ---
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) Pelvic and perineal pain (01/16/23) Unspecified abdominal pain (01/16/23) Past Medical History (Last Reviewed 12/13/22 @ 11:50 by Davis Lawson DO) Abdominal pain Abnormal Pap smear of cervix (~2006) Bronchitis Gastroparesis Palpitations Polyarthralgia Past Surgical History (Last Reviewed 12/13/22 @ 11:50 by Davis Lawson DO) Anesthesia History of laparoscopy History of oral surgery (~10/2000) History of surgery Visit Care Team Role Provider Type Davis Lawson DO Attending Provider Physician Family Provider Primary Care Provider Referring Provider Specialty: [facility] Address: [address] [place] [address], [facility] Email: [email or web address] Physical Therapy Initial Evaluation PT-OP-A Visit Information Start: 01/15/23 17:56 Freq: Status: Active Protocol: Document 01/16/23 15:03 LRN (Rec: 01/16/23 17:43 VANIA [id number]) Out-Patient Physical Therapy Visit Information Visit Information Visit Type Initial Evaluation Visit Start Time 15:03 Visit Stop Time 16:17 Total Visit Minutes 74 Visit Number 1 Evaluation Information Evaluation Date 01/16/23 Precautions Precautions Pt reports longstanding history of LB/Pelvic chronic pain, history of infections of the bladder, kidney infection (08/2022- took 1 month to clear), and ongoing UTI yeast infections (2 wks ago treated twice with anti-biotics). PT-OP-B Current Condition Start: 01/15/23 17:56 Freq: Status: Active Protocol: Document 01/16/23 15:03 LRN (Rec: 01/16/23 17:43 LRN [id number]) Current Condition History of Current Condition Onset Date 6 months ago. Current Complaints Feeling like things falling out, sit 20-30' sometime to urinate, & fear sex History of Current Condition Pt states she has pelvic & Lower back pain, ongoing for 20 years, but has had recent changes in urination, feeling like things are going to fall out. States outside and inside her vagina is hot, angry, and red. She has had an increase onset of yeast and kidney infection and she feels constantly inflammed and unwell. States prior to the of her 5 yr old son she had no issues with incontinence, but in last the last 6 months she has noted jumping on trampoline or running after him feels like her insides are going to fall out, and she feels she will loose her urine due to a strong urge, but when stops the activity the urge goes away. The sensation that things are going to fall out is daily and all day long. When going to the bathroom she must sit for 20-30 minutes before urinating, other times she is able to urinate immediately. What she finds is abnormal is: having to sit for a long time before urinating sometimes, having an urge to urinate 5-10' after going to the bathroom, sensation of insides falling out that is now constant, lower abdomen tissues feeling swollen, angry and inflammed and limited intercourse due to worsening of inflammation and pain, more than previously. Pt has not had intercourse since having a yeast infection (6 months ago) due to history of something flaring up afterwards. Pt reports chronic hx of UTI's (10 yrs ago), was treated with medication (nitrofurantoin?) that she took consistently take after intercourse. She stopped the medication 1-2 yrs ago and her UTI's did not return. In the past 6 month the infections have restarted. She also reports a feeling of longhaulers symptoms of fatigue. Prior Treatments and Tests Thinks she had a bladder study [address] Pollack. Pt has been being assessed for endometriosis over the past 20 yrs. Physical therapy in [place], [place] for PF/abdominal pain 4-6 months (11/2017-05/2018). Future Testing and Treatments Planned Urologist evaluation 01/29/23. Ultrasound in 2 days checking for endometriosis. Developmental History Developmental History Vaginal with no complications of son in [place], [place] and returned 2018 . Spouse in and will be leaving 03/17/23 returning possibly in 07/09. The pt has no family around that can help. 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 Treatment Goals Patient/Caregiver Goals Pt goals with therapy: Feel more in control of what she is feeling, decrease the feeling of pressure and falling out. Know what she can do to make things better. Personal Factors Other Personal Factors That May Effect Spouse deploying 03/17/23. Therapy/Recovery History of UTI's, bladder infection, kidney infecrtion, and possible interstitial cystitis. PT-OP-C Subjective Start: 01/15/23 17:56 Freq: Status: Active Protocol: Document 01/16/23 15:03 LRN (Rec: 01/16/23 17:43 LRN [id number]) Patient Questionnaires Pelvic Pain and Urgency/Frequency Patient Symptom Scale Pelvic Pain Score 23 OP-PT Pain Assessment Pain Assessment Grid Paper Pain Assessment Grid Completed Yes Location Spine Pain Location Details Upper and midback pain onset with and worsened w/ kidney infection Intensity 5 Scale Used Numeric (0 - 10) Description Aching,Pressure,Tender Description- Other Feels like fingers digging into spine. Frequency Intermittent Low Back Pain Location Details Across the low back, worsened with pregn& kidney infection. Intensity 9 Scale Used Numeric (0 - 10) Description Aching,Throbbing Description- Other Internal Frequency Constant Comments Pain Comments LBP 20 yrs Mid and Upper back pain - 5-6 yrs. Abdominal pain 2- yrs. PT-OP-I Pelvic Floor Start: 01/15/23 17:56 Freq: Status: Active Protocol: Document 01/16/23 15:03 LRN (Rec: 01/16/23 17:43 LRN [id number]) Pelvic Floor Assessment Urine Urinary Symptoms Incomplete Emptying,Falling Out Feeling/Heavy,Pain Other Urinary Symptoms No urinary leakage Bowel Other Bowel Symptoms Mostly daily BM's Diagnosed with gastroparesis. BM's type 4-6 if pain. Pelvic Clock Pelvic Clock 12-3 Tenderness Pelvic Clock 3-6 Tenderness Pelvic Clock 6-9 Tenderness Pelvic Clock 9-12 Tenderness Pelvic Clock Other Vaginal gapping present. External PF is dry and extremely tender to palpation. Prolapse Cystocele Grade 2 Rectocele Grade 2 Perineal Descent Resting Present Bearing Present Contraction Ability Voluntary Contraction Weak Voluntary Relaxation Moderate Manual Muscle Testing Left 2 Manual Muscle Testing Right 0 Manual Muscle Testing Anterior 0 Manual Muscle Testing Posterior 3 Muscle Endurance (Seconds) 1 PT-OP-J Posture/Palpation/Skin Start: 01/15/23 17:56 Freq: Status: Active Protocol: Document 01/16/23 15:03 LRN (Rec: 01/16/23 17:43 LRN [id number]) Posture Evaluation Position Standing Head/C-Spine Posture Rotated Right,Forward Head Pelvis Posture (R) Rotated Posterior,(R) PSIS Inferior Weight Distribution Balanced Hip Posture (R) Internally Rotated Foot Arch (L) No Arch,(R) No Arch Comments Posture Comments Pelvis R rot, ribcage fwd of hips, R shoulder high and normal posturing. Palpation Assessment Location PF Palpation Location External PF Palpation Findings Tenderness Abdomen Palpation Location Anterior abdominal region from Xiphoid process to Pubic Symphysis. Palpation Findings Tenderness Palpation Details Minimal ms contraction noted. DR: 2 below umbilicus to pubic symphysis: 2 finger width. PT-OP-K Range of Motion Start: 01/15/23 17:56 Freq: Status: Active Protocol: Document 01/16/23 15:03 LRN (Rec: 01/16/23 17:43 LRN [id number]) Lumbar Spine Range of Motion Lumbar Spine Active Degrees Testing Position Standing Flexion 48 Extension 1 Rotation Left 10 Rotation Right 10 Lateral Flexion Left 7 Lateral Flexion Right 7 Comments Trunk Flexion is 48 deg?s with 30 deg?s hip flexion, Trunk extension is 1 deg?s with 0 deg?s hip extension. Spine feels like seizing up. Hip Goniometric Range of Motion Hip Right Passive Testing Position Supine Internal Rotation 30 External Rotation 70 Left Passive Testing Position Supine Internal Rotation 45 External Rotation 65 PT-OP-M Strength Start: 01/15/23 17:56 Freq: Status: Active Protocol: Document 01/16/23 15:03 LRN (Rec: 01/16/23 17:43 LRN [id number]) Trunk Strength Trunk Manual Muscle Testing Core Stabilization Lacks core controll with MMT of LE's. Comments Not able to palpate abdominal flexors with supine head lifts . Hip Strength Hip Manual Muscle Testing Right Flexion (L2) 3+ Fair+ Extension (S1) 4 Good Abduction 3+ Fair+ Adduction 3 Fair External Rotation 4+ Good+ Internal Rotation 4+ Good+ Left Flexion (L2) 3+ Fair+ Extension (S1) 3 Fair Abduction 3+ Fair+ Adduction 3+ Fair+ External Rotation 4 Good Internal Rotation 4+ Good+ PT-OP-Q Treatments Start: 01/15/23 17:56 Freq: Status: Active Protocol: Document 01/16/23 15:03 LRN (Rec: 01/16/23 17:43 LRN [id number]) Self-Care/Home Management Treatment Education Other Education At length discussed results of evaluation, goals, and plan of care (POC). Pt agreeable to goals and POC. Issued, discussed, & reviewed Bladder Diary for pt to complete over the next 7 days, and discussion of monitoring bowel movements and type of bowels. Discussed use of 2 different diaries for tracking of bladder. Educated and discussed norm of bowel movements daily. Educated briefly and discussed involvement of back, abdomen, hips, pelvis and breathing techniques as related to pelvic floor. Activities Self-Care/Home Management Activities Educated and I/S pt in use of CP to external PF to reduce inflammation/pain. I/S pt in precautions of exercises to avoid (sit ups, planks, etc.) to limit core internal pressures. PT-OP-T Assessment and Plan Start: 01/15/23 17:56 Freq: Status: Active Protocol: Document 01/16/23 15:03 LRN (Rec: 01/16/23 17:43 LRN [id number]) Physical Therapy Assessment Rehab Potential Rehabilitation Potential Good Evaluation Complexity Number of Personal Factors/Comorbidities 3 or More Number of Body Systems Impaired 3 Clinical Presentation at Evaluation Evolving Impairments Impairments Activity Tolerance,Edema,Pain, Posture,ROM,Sensation,Soft Tissue Mobility,Strength, Transfers Other Impairments Poor mechanics of deep breathing. Other Concerns Barriers to Rehabilitation Chronic nature of her pain. Goals Five Impairment Decreased PF strength with Cystocele and Rectocele stage 2. Impairment Pt sits for 20-30' sometimes before being able to urinate. Short Term Goal (STG) Pt will be educated in coordination of breathwork with transfers and exercise to limit core pressures with mobility. STG Duration 02/09/23 Skilled Nursing Goal (LTG) Pt will report decreased sensation of insides falling out (in a less consistent basis), and decrease sitting time before urination begins.. LTG Duration 04/16/23 Four Impairment Decreased trunk and hip mobility. Impairment Trunk AROM: Flex 48 deg's, Ext 1 deg, SB 7 deg's bilaterally. Hip PROM: ER is 70 deg's R, 65 deg's L; IR is 30 deg's R, 45 deg's L. Short Term Goal (STG) Pt will be educated and will be able to demonstrate proper deep breathing technique at rest and with transfers. STG Duration 02/09/23 Skilled Nursing Goal (LTG) Pt will demonstrate improved trunk and hip mobility with decrease in onset of pain and pt able to resume intercourse. LTG Duration 04/16/23 Three Impairment External and Internal PF pain Impairment Dry and red tissue internally and externally. Short Term Goal (STG) Pt will be assessed for use of medication by primary care physician or OBGYN, to decrease redness of external PF tissues. STG Duration 02/09/23 Skilled Nursing Goal (LTG) Decrease Pain with moderate palpation of external and internal PF tissues. LTG Duration 04/16/23 Two Impairment Hypersensitivity of abdomen & pubic region with pain on palpation. Short Term Goal (STG) Pt educated in deep breathing for lowering set point of sympathetic system and education to decrease vagus nerve stimulation, and will be educated in proper sitting/ standing posture. STG Duration 02/09/23 Skilled Nursing Goal (LTG) Pt will be able to tolerate moderate to deep palpation of abdomen and pubic region for self soft tissue mobilization on home program. LTG Duration 04/16/23 One Impairment Lacks appropriate self care HEP. Short Term Goal (STG) Pt will be educated in self care pain management techniques. STG Duration 02/09/23 Skilled Nursing Goal (LTG) Pt educated in self care HEP of trunk, hip, and PF mobility and strengthening exercise. LTG Duration 04/16/23 Assessment Summary Assessment Pt is a 37 yo female who presents with VERY notable stiffness of the spine as trunk flex is 48 deg's with 30 deg's hip flexion (norm is 80 deg's); therefore lumbar flexion 18 deg's. Extension is more limited at 1 deg's extension (no hip extension). Pt notes in medical history intake form that she has a history of headache, neck/jaw pain and ongoing UTI/yeast/ kidney infection. Her neck and jaw pain that may have association to her previous jaw reconstruction, but with the stiffness of her spine and notation of headache, neck/ jaw pain and multiple infections; further medical assessment for neural involvement of the spine/ spinal fluid would seem to be appropriate. The pt demonstrates soft tissue dysfunction of the trunk ( front and back) and pelvis, and dysfunction of her anterior core muscles ( diastasis rectus present) and mechanical dysfunction of the spine and pelvis. It is expected that the pt's rehabilitation will require extended time due to the chronic nature of her pain and the multifaceted naature of her pain. PF quick flick testing was deferred due to pain elicited with internal palpation of the PF and pt withdrawl responses . Pelvic pain and Urgency/ Frequency Scale is 23, indicating 91% likelihood of positive Potassium Sensitivity Test, that may indicate interstitial Cystitis. In addition to her PF and lower abdominal pain, the pt is also experiencing general abdominal and back pain of her spine and low back. Her low back and lower abdominal pain appears to be chronic in nature, but her spinal and PF pain has been since giving (5-6 yrs ago) and recently has worsened in the abdominal region in the past 2 yrs. She has extreme tenderness of her general external PF as well as internally. She has obvious weakness of her PF with cystocele and rectocele present. I would recommend the pt be evaluated by a Obgyn for possible use of pessary. It is very possible that the pt is experiencing a cystocele and rectocele due to poor abdominal pressure management and poor coordination of exercise, breathwork and muscle contractions, in which case the pt will benefit greatly from physical therapy for education and exercise coordination. The pt will benefit from skilled physical therapy to work towards achieving the above stated goals. Physical Therapy Plan Frequency and Duration Frequency of Treatment 1x/Week Plan of Care Start Date 01/16/23 Plan of Care End Date 04/16/23 Therapeutic Interventions Therapeutic Interventions Home Exercise Program Other Referrals/Consults Referrals/Consults Recommended Recommend evaluation for further medical assessment for neural involvement of the spine/spinal fluid. Referral to OBGYN for cystocele/rectocele assessment for pessary and assessment for topical estrogen therapy. Next Visit Focus/Plan Next Note Type Treatment Note Next Visit Plan Assess PF Quick Contractions when there is less pain on external and internal palpation. Review bladder diary and make recommendations as needed, discuss fluid intakes. Education in core/canister pressures and strategies to decrease PF pressures with ADLs, exercise, stress & pain. Education in PF strengthening with ADLS/transfers. Assess for sacral balancing. Exer: Kegels in abscence of substitute muscles, Hip IR stretching, hamstring/LE neural stretch, trunk rot & SB stretch. Pelvic stabilization for symphysis pubic dysfunction, core & hip strengthening Biofeedback when pt able to perform a contraction Quick Flick and Long Hold muscles. PF Education, massage, mobility ex?s, stabilization ex?s.
--- NOTE | 2023-01-25 20:47 | PT.OTN ---
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) Pelvic and perineal pain (01/25/23) Unspecified abdominal pain (01/25/23) Physical Therapy Treatment Note PT-OP-A Visit Information Start: 01/15/23 17:56 Freq: Status: Active Protocol: Document 01/25/23 12:37 LRN (Rec: 01/25/23 13:19 LRN [id number]) Out-Patient Physical Therapy Visit Information Visit Information Visit Type Treatment Note Visit Start Time 12:37 Visit Stop Time 13:16 Total Visit Minutes 41 Visit Number 2 Evaluation Information Evaluation Date 01/16/23 Precautions Precautions Pt reports longstanding history of LB/Pelvic chronic pain, history of infections of the bladder, kidney infection (08/2022- took 1 month to clear), and ongoing UTI yeast infections (2 wks ago treated twice with anti-biotics). PT-OP-B Current Condition Start: 01/15/23 17:56 Freq: Status: Active Protocol: Document 01/16/23 15:03 LRN (Rec: 01/16/23 17:43 LRN [id number]) Current Condition History of Current Condition Onset Date 6 months ago. Current Complaints Feeling like things falling out, sit 20-30' sometime to urinate, & fear sex History of Current Condition Pt states she has pelvic & Lower back pain, ongoing for 20 years, but has had recent changes in urination, feeling like things are going to fall out. States outside and inside her vagina is hot, angry, and red. She has had an increase onset of yeast and kidney infection and she feels constantly inflammed and unwell. States prior to the of her 5 yr old son she had no issues with incontinence, but in last the last 6 months she has noted jumping on trampoline or running after him feels like her insides are going to fall out, and she feels she will loose her urine due to a strong urge, but when stops the activity the urge goes away. The sensation that things are going to fall out is daily and all day long. When going to the bathroom she must sit for 20-30 minutes before urinating, other times she is able to urinate immediately. What she finds is abnormal is: having to sit for a long time before urinating sometimes, having an urge to urinate 5-10' after going to the bathroom, sensation of insides falling out that is now constant, lower abdomen tissues feeling swollen, angry and inflammed and limited intercourse due to worsening of inflammation and pain, more than previously. Pt has not had intercourse since having a yeast infection (6 months ago) due to history of something flaring up afterwards. Pt reports chronic hx of UTI's (10 yrs ago), was treated with medication (nitrofurantoin?) that she took consistently take after intercourse. She stopped the medication 1-2 yrs ago and her UTI's did not return. In the past 6 month the infections have restarted. She also reports a feeling of longhaulers symptoms of fatigue. Prior Treatments and Tests Thinks she had a bladder study [address] Pollack. Pt has been being assessed for endometriosis over the past 20 yrs. Physical therapy in [place], [place] for PF/abdominal pain 4-6 months (11/2017-05/2018). Future Testing and Treatments Planned Urologist evaluation 01/29/23. Ultrasound in 2 days checking for endometriosis. Developmental History Developmental History Vaginal with no complications of son in [place], [place] and returned 2018 . Spouse in and will be leaving 03/17/23 returning possibly in 07/09. The pt has no family around that can help. 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 Treatment Goals Patient/Caregiver Goals Pt goals with therapy: Feel more in control of what she is feeling, decrease the feeling of pressure and falling out. Know what she can do to make things better. Personal Factors Other Personal Factors That May Effect Spouse deploying 03/17/23. Therapy/Recovery History of UTI's, bladder infection, kidney infecrtion, and possible interstitial cystitis. PT-OP-C Subjective Start: 01/15/23 17:56 Freq: Status: Active Protocol: Document 01/25/23 12:37 LRN (Rec: 01/25/23 13:19 LRN [id number]) OP-PT Subjective Patient Comments Patient Comments States she had bladder scan 01/19/23 and was told she was not completely emptying, almost 1/ 2 full (post void residual of 295 cc). Bladder diary was documented on her phone. On had imaging to show possible cyst on R ovary. States she is planning a trip to [place] ~02/08/23. PT-OP-I Pelvic Floor Start: 01/15/23 17:56 Freq: Status: Active Protocol: Document 01/16/23 15:03 LRN (Rec: 01/16/23 17:43 LRN [id number]) Pelvic Floor Assessment Urine Urinary Symptoms Incomplete Emptying,Falling Out Feeling/Heavy,Pain Other Urinary Symptoms No urinary leakage Bowel Other Bowel Symptoms Mostly daily BM's Diagnosed with gastroparesis. BM's type 4-6 if pain. Pelvic Clock Pelvic Clock 12-3 Tenderness Pelvic Clock 3-6 Tenderness Pelvic Clock 6-9 Tenderness Pelvic Clock 9-12 Tenderness Pelvic Clock Other Vaginal gapping present. External PF is dry and extremely tender to palpation. Prolapse Cystocele Grade 2 Rectocele Grade 2 Perineal Descent Resting Present Bearing Present Contraction Ability Voluntary Contraction Weak Voluntary Relaxation Moderate Manual Muscle Testing Left 2 Manual Muscle Testing Right 0 Manual Muscle Testing Anterior 0 Manual Muscle Testing Posterior 3 Muscle Endurance (Seconds) 1 PT-OP-J Posture/Palpation/Skin Start: 01/15/23 17:56 Freq: Status: Active Protocol: Document 01/25/23 12:37 LRN (Rec: 01/25/23 19:35 LRN [id number]) Palpation Assessment Location PF Palpation Location Internal PF Palpation Findings Tenderness Palpation Details Bladder appears to be in proper position. Abdomen Palpation Location Anterior abdominal region from Xiphoid process to Pubic Symphysis. Palpation Findings Tenderness Palpation Details Minimal ms contraction noted. DR: 2 below umbilicus to pubic symphysis: 2 finger width. PT-OP-K Range of Motion Start: 01/15/23 17:56 Freq: Status: Active Protocol: Document 01/16/23 15:03 LRN (Rec: 01/16/23 17:43 LRN [id number]) Lumbar Spine Range of Motion Lumbar Spine Active Degrees Testing Position Standing Flexion 48 Extension 1 Rotation Left 10 Rotation Right 10 Lateral Flexion Left 7 Lateral Flexion Right 7 Comments Trunk Flexion is 48 deg?s with 30 deg?s hip flexion, Trunk extension is 1 deg?s with 0 deg?s hip extension. Spine feels like seizing up. Hip Goniometric Range of Motion Hip Right Passive Testing Position Supine Internal Rotation 30 External Rotation 70 Left Passive Testing Position Supine Internal Rotation 45 External Rotation 65 PT-OP-M Strength Start: 01/15/23 17:56 Freq: Status: Active Protocol: Document 01/16/23 15:03 LRN (Rec: 01/16/23 17:43 LRN [id number]) Trunk Strength Trunk Manual Muscle Testing Core Stabilization Lacks core controll with MMT of LE's. Comments Not able to palpate abdominal flexors with supine head lifts . Hip Strength Hip Manual Muscle Testing Right Flexion (L2) 3+ Fair+ Extension (S1) 4 Good Abduction 3+ Fair+ Adduction 3 Fair External Rotation 4+ Good+ Internal Rotation 4+ Good+ Left Flexion (L2) 3+ Fair+ Extension (S1) 3 Fair Abduction 3+ Fair+ Adduction 3+ Fair+ External Rotation 4 Good Internal Rotation 4+ Good+ PT-OP-Q Treatments Start: 01/15/23 17:56 Freq: Status: Active Protocol: Document 01/25/23 12:37 LRN (Rec: 01/25/23 13:19 LRN [id number]) Therapeutic Exercises Supine Exercises Vagal n stim Supine Exercise Name Vagal n stim with deep breathing Reps/Minutes 3' Comments Verbal cuing needed. Deep Breathing Supine Exercise Name Deep breathing Reps/Minutes 10' Comments phys cuing to chest/abdomen, mostly self awareness cuing. Other Exercises Core pressure training with transfers Other Exercise Name Core pressure management training with transfers Stand< >sit<>supine Reps/Minutes x 2 Comments Verbal and phys cuing during proper log roll transfer w/ breath coordination Self-Care/Home Management Treatment Education Patient Education Home Exercise Program Other Education Education in core/canister pressures and strategies to decrease PF pressures during transfers. Activities Self-Care/Home Management Activities Issued & quick intro to Bowel massage stim. PT-OP-T Assessment and Plan Start: 01/15/23 17:56 Freq: Status: Active Protocol: Document 01/25/23 12:37 LRN (Rec: 01/25/23 13:19 LRN [id number]) Physical Therapy Assessment Rehab Potential Rehabilitation Potential Good Evaluation Complexity Number of Personal Factors/Comorbidities 3 or More Number of Body Systems Impaired 3 Clinical Presentation at Evaluation Evolving Impairments Impairments Activity Tolerance,Edema,Pain, Posture,ROM,Sensation,Soft Tissue Mobility,Strength, Transfers Other Impairments Poor mechanics of deep breathing. Goals Five Impairment Decreased PF strength with Cystocele and Rectocele stage 2. Impairment Pt sits for 20-30' sometimes before being able to urinate. Short Term Goal (STG) Pt will be educated in coordination of breathwork with transfers and exercise to limit core pressures with mobility. STG Duration 02/09/23 (01/25/23: MET GOAL) Residential Goal (LTG) Pt will report decreased sensation of insides falling out (in a less consistent basis), and decrease sitting time before urination begins.. LTG Duration 04/16/23 Four Impairment Decreased trunk and hip mobility. Impairment Trunk AROM: Flex 48 deg's, Ext 1 deg, SB 7 deg's bilaterally. Hip PROM: ER is 70 deg's R, 65 deg's L; IR is 30 deg's R, 45 deg's L. Short Term Goal (STG) Pt will be educated and will be able to demonstrate proper deep breathing technique at rest and with transfers. 01/25/23: Pt educated in proper deep breathing technique at rest and with transfers. Not yet able to demonstrate technique independenly, requires cuing. STG Duration 02/09/23 progressing 01/25/23 Residential Goal (LTG) Pt will demonstrate improved trunk and hip mobility with decrease in onset of pain and pt able to resume intercourse. LTG Duration 04/16/23 Three Impairment External and Internal PF pain Impairment Dry and red tissue internally and externally. Short Term Goal (STG) Pt will be assessed for use of medication by primary care physician or OBGYN, to decrease redness of external PF tissues. STG Duration 02/09/23 Tourist Escort Goal (LTG) Decrease Pain with moderate palpation of external and internal PF tissues. LTG Duration 04/16/23 Two Impairment Hypersensitivity of abdomen & pubic region with pain on palpation. Short Term Goal (STG) Pt educated in deep breathing for lowering set point of sympathetic system and education to decrease vagus nerve stimulation, and will be educated in proper sitting/ standing posture. 01/25/23: Pt educated in deep breathing for lowering set point of sympathetic system and educated in breathing to stim vagus nerve. STG Duration 02/09/23 partially met goal Residential Goal (LTG) Pt will be able to tolerate moderate to deep palpation of abdomen and pubic region for self soft tissue mobilization on home program. LTG Duration 04/16/23 One Impairment Lacks appropriate self care HEP. Short Term Goal (STG) Pt will be educated in self care pain management techniques. STG Duration 02/09/23 Tourist Escort Goal (LTG) Pt educated in self care HEP of trunk, hip, and PF mobility and strengthening exercise. LTG Duration 04/16/23 Progress Towards Goals Progress Comments Pt educated in proper breathing for decreasing sympathetic tone, and vagus stim, and for use with transfer to minimize core pressures. Assessment Summary Assessment Pt with very stiff spine, DR, history of headache, neck/jaw pain and ongoing UTI/yeast/ kidney infection; further medical assessment for neural involvement of the spine/ spinal fluid may be appropriate. She did not c/o neck stiffness with AAROM for flex, and rot, but did c/o LBP . It appears her bladder is in proper position with internal palpation in supine. Per pt, testing of blader post voiding showed 153 cc (4 oz) urine remaining; she thinks she was told 1/2 urine contents remained. PF tightness and LBP may be a reason for poor intiation when urinating, but she demonstrated initially poor PF strength. She may possibly have poor bladder positioning on standing, therefore further ongoing assessment is needed. Pt has symptoms of pain at vaginal entry and presents with a very small vaginal opening with redness present, and she continues to have abdominal pain; therefore the pt would benefit from more frequent physical therapy visits, from 1x/week to 2x/ week, for manual therapy to promote improved muscle and soft tissue mobility to decrease pain and improve ability to void. Pt has good attitude towards education in transfer training with core pressure reduction education. Improving bowel function to prevent constipation will also be very importanat aspect of her rehabilitation. Self bowel massage was issued, and pt needs to keep hydrated although bladder may be 1/2 emptying with voids; therefore it is expected that she will have frequent urination until she can achieve relaxed PF, improved trunk mobility, decrease constipation onset, reduce sympathetic tone through deep breathing and reduce skin irritation at vaginal region. Pt will be referred back to your office for assessment and possible use of estrogen creme for her internal PF health (Estrace or similar) if appropriate and any neural assessment you deem appropriate. Physical Therapy Plan Frequency and Duration Frequency of Treatment 2x/Week Plan of Care Start Date 01/25/23 Plan of Care End Date 04/16/23 Therapeutic Interventions Therapeutic Interventions Home Exercise Program,Joint Mobilizations,Manual Therapy, Neuromuscular Re-education, Patient/Caregiver Education, Self-Care/Home Management,Soft Tissue Mobilization,Taping, Therapeutic Activities, Therapeutic Exercises Modalities Cold Pack/Ice Massage,Hot Packs Next Visit Focus/Plan Next Note Type Treatment Note Next Visit Plan Discuss therapy 2x/week for STM (back, abdomen, sacral balancing) focus to start. Review previously issued bowel massage. Educate on vagus n stim. Try PF stretching externally and issue wand for stretching if + response, Back rehab. Assess PF Quick Contractions when there is less pain on external and internal palpation. Review bladder diary and make recommendations as needed, discuss fluid intakes. Education in core/canister pressures and strategies to decrease PF pressures with ADLs, exercise, stress & pain. Education in PF strengthening with ADLS/transfers. Assess for sacral balancing. Exer: Jannets in abscence of substitute muscles, Hip IR stretching, hamstring/LE neural stretch, trunk rot & SB stretch. Pelvic stabilization for symphysis pubic dysfunction, core & hip strengthening Biofeedback when pt able to perform a contraction Quick Flick and Long Hold muscles. PF Education, massage, mobility ex?s, stabilization ex?s.
--- NOTE | 2023-02-26 17:29 | PT.OTN ---
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) Pelvic and perineal pain (02/26/23) Unspecified abdominal pain (02/26/23) Physical Therapy Treatment Note PT-OP-A Visit Information Start: 01/15/23 17:56 Freq: Status: Active Protocol: Document 02/26/23 12:35 LRN (Rec: 02/26/23 13:23 LRN [id number]) Out-Patient Physical Therapy Visit Information Visit Information Visit Type Treatment Note Visit Start Time 12:35 Visit Stop Time 13:20 Total Visit Minutes 45 Visit Number Evaluation Information Evaluation Date 01/16/23 Precautions Precautions Pt reports longstanding history of LB/Pelvic chronic pain, history of infections of the bladder, kidney infection (08/2022- took 1 month to clear), and ongoing UTI yeast infections (2 wks ago treated twice with anti-biotics). PT-OP-B Current Condition Start: 01/15/23 17:56 Freq: Status: Active Protocol: Document 01/16/23 15:03 LRN (Rec: 01/16/23 17:43 LRN [id number]) Current Condition History of Current Condition Onset Date 6 months ago. Current Complaints Feeling like things falling out, sit 20-30' sometime to urinate, & fear sex History of Current Condition Pt states she has pelvic & Lower back pain, ongoing for 20 years, but has had recent changes in urination, feeling like things are going to fall out. States outside and inside her vagina is hot, angry, and red. She has had an increase onset of yeast and kidney infection and she feels constantly inflammed and unwell. States prior to the of her 5 yr old son she had no issues with incontinence, but in last the last 6 months she has noted jumping on trampoline or running after him feels like her insides are going to fall out, and she feels she will loose her urine due to a strong urge, but when stops the activity the urge goes away. The sensation that things are going to fall out is daily and all day long. When going to the bathroom she must sit for 20-30 minutes before urinating, other times she is able to urinate immediately. What she finds is abnormal is: having to sit for a long time before urinating sometimes, having an urge to urinate 5-10' after going to the bathroom, sensation of insides falling out that is now constant, lower abdomen tissues feeling swollen, angry and inflammed and limited intercourse due to worsening of inflammation and pain, more than previously. Pt has not had intercourse since having a yeast infection (6 months ago) due to history of something flaring up afterwards. Pt reports chronic hx of UTI's (10 yrs ago), was treated with medication (nitrofurantoin?) that she took consistently take after intercourse. She stopped the medication 1-2 yrs ago and her UTI's did not return. In the past 6 month the infections have restarted. She also reports a feeling of longhaulers symptoms of fatigue. Prior Treatments and Tests Thinks she had a bladder study [address] Pollack. Pt has been being assessed for endometriosis over the past 20 yrs. Physical therapy in [place], [place] for PF/abdominal pain 4-6 months (11/2017-05/2018). Future Testing and Treatments Planned Urologist evaluation 01/29/23. Ultrasound in 2 days checking for endometriosis. Developmental History Developmental History Vaginal with no complications of son in [place], [place] and returned 2018 . Spouse in and will be leaving 03/17/23 returning possibly in 07/09. The pt has no family around that can help. 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 Treatment Goals Patient/Caregiver Goals Pt goals with therapy: Feel more in control of what she is feeling, decrease the feeling of pressure and falling out. Know what she can do to make things better. Personal Factors Other Personal Factors That May Effect Spouse deploying 03/17/23. Therapy/Recovery History of UTI's, bladder infection, kidney infecrtion, and possible interstitial cystitis. PT-OP-C Subjective Start: 01/15/23 17:56 Freq: Status: Active Protocol: Document 02/26/23 12:35 LRN (Rec: 02/26/23 13:23 LRN [id number]) OP-PT Subjective Patient Comments Patient Comments Has new meds that make her not want to pee so often and that insides are not going to fall out, and putting on tight jeans is not painful. Will be seeing Dr. Garcia in 2 days who will do a through internal exam and pressure points. [place] ok after last treatment but the meds have helped the most and putting up her feet at end of day. Was able to fly to [place] with meds. PT-OP-I Pelvic Floor Start: 01/15/23 17:56 Freq: Status: Active Protocol: Document 01/16/23 15:03 LRN (Rec: 01/16/23 17:43 LRN [id number]) Pelvic Floor Assessment Urine Urinary Symptoms Incomplete Emptying,Falling Out Feeling/Heavy,Pain Other Urinary Symptoms No urinary leakage Bowel Other Bowel Symptoms Mostly daily BM's Diagnosed with gastroparesis. BM's type 4-6 if pain. Pelvic Clock Pelvic Clock 12-3 Tenderness Pelvic Clock 3-6 Tenderness Pelvic Clock 6-9 Tenderness Pelvic Clock 9-12 Tenderness Pelvic Clock Other Vaginal gapping present. External PF is dry and extremely tender to palpation. Prolapse Cystocele Grade 2 Rectocele Grade 2 Perineal Descent Resting Present Bearing Present Contraction Ability Voluntary Contraction Weak Voluntary Relaxation Moderate Manual Muscle Testing Left 2 Manual Muscle Testing Right 0 Manual Muscle Testing Anterior 0 Manual Muscle Testing Posterior 3 Muscle Endurance (Seconds) 1 PT-OP-J Posture/Palpation/Skin Start: 01/15/23 17:56 Freq: Status: Active Protocol: Document 01/25/23 12:37 LRN (Rec: 01/25/23 19:35 LRN [id number]) Palpation Assessment Location PF Palpation Location Internal PF Palpation Findings Tenderness Palpation Details Bladder appears to be in proper position. Abdomen Palpation Location Anterior abdominal region from Xiphoid process to Pubic Symphysis. Palpation Findings Tenderness Palpation Details Minimal ms contraction noted. : 2 below umbilicus to pubic symphysis: 2 finger width. PT-OP-K Range of Motion Start: 01/15/23 17:56 Freq: Status: Active Protocol: Document 01/16/23 15:03 LRN (Rec: 01/16/23 17:43 LRN [id number]) Lumbar Spine Range of Motion Lumbar Spine Active Degrees Testing Position Standing Flexion 48 Extension 1 Rotation Left 10 Rotation Right 10 Lateral Flexion Left 7 Lateral Flexion Right 7 Comments Trunk Flexion is 48 deg?s with 30 deg?s hip flexion, Trunk extension is 1 deg?s with 0 deg?s hip extension. Spine feels like seizing up. Hip Goniometric Range of Motion Hip Right Passive Testing Position Supine Internal Rotation 30 External Rotation 70 Left Passive Testing Position Supine Internal Rotation 45 External Rotation 65 PT-OP-M Strength Start: 01/15/23 17:56 Freq: Status: Active Protocol: Document 01/16/23 15:03 LRN (Rec: 01/16/23 17:43 LRN [id number]) Trunk Strength Trunk Manual Muscle Testing Core Stabilization Lacks core controll with MMT of LE's. Comments Not able to palpate abdominal flexors with supine head lifts . Hip Strength Hip Manual Muscle Testing Right Flexion (L2) 3+ Fair+ Extension (S1) 4 Good Abduction 3+ Fair+ Adduction 3 Fair External Rotation 4+ Good+ Internal Rotation 4+ Good+ Left Flexion (L2) 3+ Fair+ Extension (S1) 3 Fair Abduction 3+ Fair+ Adduction 3+ Fair+ External Rotation 4 Good Internal Rotation 4+ Good+ PT-OP-Q Treatments Start: 01/15/23 17:56 Freq: Status: Active Protocol: Document 02/26/23 12:35 LRN (Rec: 02/26/23 13:23 LRN [id number]) Manual Therapy Treatment Soft Tissue Mobilization Sacral balancing Body Location Sacrum Mobilization Type Myofascial Release Intensity/Depth Superficial>Moderate Body Position Prone Comments Sacral sulcus infer mob bilaterally, L sacral sulcus PA, sacrum R shear. PF Body Location External PF region: Mob Superior, lateral (tighter to R) Mobilization Type Myofascial Release Intensity/Depth Superficial Body Position Supine ABdomen Body Location Abdomen: superior and CCW mob Mobilization Type Myofascial Release Intensity/Depth Superficial to Moderate Body Position Supine PT-OP-T Assessment and Plan Start: 01/15/23 17:56 Freq: Status: Active Protocol: Document 02/26/23 12:35 LRN (Rec: 02/26/23 13:23 LRN [id number]) Physical Therapy Assessment Goals Five Impairment Decreased PF strength with Cystocele and Rectocele stage 2. Impairment Pt sits for 20-30' sometimes before being able to urinate. Short Term Goal (STG) Pt will be educated in coordination of breathwork with transfers and exercise to limit core pressures with mobility. STG Duration 02/09/23 (01/25/23: MET GOAL) Fci Goal (LTG) Pt will report decreased sensation of insides falling out (in a less consistent basis), and decrease sitting time before urination begins.. LTG Duration 04/16/23 Four Impairment Decreased trunk and hip mobility. Impairment Trunk AROM: Flex 48 deg's, Ext 1 deg, SB 7 deg's bilaterally. Hip PROM: ER is 70 deg's R, 65 deg's L; IR is 30 deg's R, 45 deg's L. Short Term Goal (STG) Pt will be educated and will be able to demonstrate proper deep breathing technique at rest and with transfers. 01/25/23: Pt educated in proper deep breathing technique at rest and with transfers. Not yet able to demonstrate technique independenly, requires cuing. STG Duration 02/09/23 progressing 01/25/23 Staffing Mgr Goal (LTG) Pt will demonstrate improved trunk and hip mobility with decrease in onset of pain and pt able to resume intercourse. LTG Duration 04/16/23 Three Impairment External and Internal PF pain Impairment Dry and red tissue internally and externally. Short Term Goal (STG) Pt will be assessed for use of medication by primary care physician or OBGYN, to decrease redness of external PF tissues. STG Duration 02/09/23 Staffing Mgr Goal (LTG) Decrease Pain with moderate palpation of external and internal PF tissues. LTG Duration 04/16/23 Two Impairment Hypersensitivity of abdomen & pubic region with pain on palpation. Short Term Goal (STG) Pt educated in deep breathing for lowering set point of sympathetic system and education to decrease vagus nerve stimulation, and will be educated in proper sitting/ standing posture. 01/25/23: Pt educated in deep breathing for lowering set point of sympathetic system and educated in breathing to stim vagus nerve. STG Duration 02/09/23 partially met goal Staffing Mgr Goal (LTG) Pt will be able to tolerate moderate to deep palpation of abdomen and pubic region for self soft tissue mobilization on home program. LTG Duration 04/16/23 One Impairment Lacks appropriate self care HEP. Short Term Goal (STG) Pt will be educated in self care pain management techniques. STG Duration 02/09/23 Fci Goal (LTG) Pt educated in self care HEP of trunk, hip, and PF mobility and strengthening exercise. LTG Duration 04/16/23 Assessment Summary Assessment Pt with continued stiffness of the spine and much muscle guarding of paraspinal muscles and DR; history of headache, neck/jaw pain (jaw was reconstructed) and ongoing UTI /yeast/kidney infection. She has pubic symphysis pain with abdominal MFR. Her external PF is red and tender, but pt only reported ongoing discomfort at end of therapy after MFR. Physical Therapy Plan Frequency and Duration Frequency of Treatment 2x/Week Plan of Care Start Date 01/25/23 Plan of Care End Date 04/16/23 Next Visit Focus/Plan Next Note Type Treatment Note Next Visit Plan Assess for innominate rot dysfunction and for sacral balancing and response to MFR to PF and abdomen, add urachus release. Discuss pt visit with Dr. Garcia for treatment of red/tender tissues at vaginal entry, and discuss therapy 2x/week for STM (back, abdomen, sacral balancing) focus to start. Review previously issued bowel massage. Add education for DR montano. Educate on vagus n stim. Assess response to PF external stretching and issue wand for stretching if + response, Educate on vagus n stim. Back rehab. Assess PF Quick Contractions when there is less pain on external and internal palpation. Review bladder diary and make recommendations as needed, discuss fluid intakes. Education in core/canister pressures and strategies to decrease PF pressures with ADLs, exercise, stress & pain. Education in PF strengthening with ADLs/transfers. Exer: Bradygels in abscence of substitute muscles, Hip IR stretching, hamstring/LE neural stretch, trunk rot & SB stretch. Pelvic stabilization for symphysis pubic dysfunction, core & hip strengthening, Biofeedback when pt able to perform a contraction Quick Flick and Long Hold muscles. PF Education, massage, mobility ex?s, stabilization ex?s.
--- NOTE | 2023-04-13 17:18 | PT-OP ANOTE ---
Msg left notifying the pt that she canceled her last appointment and because of other cancelations, and because her plan of care expires 04/16/23, a new referral will be needed for her to return to therapy. If pt had questions or concerns she was informed she could contact current solid waste division supervisor Keara Agee.
--- NOTE | 2023-04-13 17:27 | PT.OPDS ---
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 Current Complaints Feeling like things falling out, sit 20-30' sometime to urinate, & fear sex History of Current Condition Pt states she has pelvic & Lower back pain, ongoing for 20 years, but has had recent changes in urination, feeling like things are going to fall out. States outside and inside her vagina is hot, angry, and red. She has had an increase onset of yeast and kidney infection and she feels constantly inflammed and unwell. States prior to the of her 5 yr old son she had no issues with incontinence, but in last the last 6 months she has noted jumping on trampoline or running after him feels like her insides are going to fall out, and she feels she will loose her urine due to a strong urge, but when stops the activity the urge goes away. The sensation that things are going to fall out is daily and all day long. When going to the bathroom she must sit for 20-30 minutes before urinating, other times she is able to urinate immediately. What she finds is abnormal is: having to sit for a long time before urinating sometimes, having an urge to urinate 5-10' after going to the bathroom, sensation of insides falling out that is now constant, lower abdomen tissues feeling swollen, angry and inflammed and limited intercourse due to worsening of inflammation and pain, more than previously. Pt has not had intercourse since having a yeast infection (6 months ago) due to history of something flaring up afterwards. Pt reports chronic hx of UTI's (10 yrs ago), was treated with medication (nitrofurantoin?) that she took consistently take after intercourse. She stopped the medication 1-2 yrs ago and her UTI's did not return. In the past 6 month the infections have restarted. She also reports a feeling of longhaulers symptoms of fatigue. Prior Treatments and Tests Thinks she had a bladder study [address] Pollack. Pt has been being assessed for endometriosis over the past 20 yrs. Physical therapy in [place], [place] for PF/abdominal pain 4-6 months (11/2017-05/2018). Future Testing and Treatments Planned Urologist evaluation 01/29/23. Ultrasound in 2 days checking for endometriosis. Developmental History Developmental History Vaginal with no complications of son in [place], [place] and returned 2018 . Spouse in and will be leaving 03/17/23 returning possibly in 07/09. The pt has no family around that can help. 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 Treatment Goals Patient/Caregiver Goals Pt goals with therapy: Feel more in control of what she is feeling, decrease the feeling of pressure and falling out. Know what she can do to make things better. Personal Factors Other Personal Factors That May Effect Spouse deploying 03/17/23. Therapy/Recovery History of UTI's, bladder infection, kidney infecrtion, and possible interstitial cystitis. PT-OP-C Subjective Start: 01/15/23 17:56 Freq: Status: Active Protocol: Document 02/26/23 12:35 LRN (Rec: 02/26/23 13:23 LRN [id number]) OP-PT Subjective Patient Comments Patient Comments Has new meds that make her not want to pee so often and that insides are not going to fall out, and putting on tight jeans is not painful. Will be seeing Dr. Garcia in 2 days who will do a through internal exam and pressure points. [place] ok after last treatment but the meds have helped the most and putting up her feet at end of day. Was able to fly to [place] with meds. PT-OP-I Pelvic Floor Start: 01/15/23 17:56 Freq: Status: Active Protocol: Document 01/16/23 15:03 LRN (Rec: 01/16/23 17:43 LRN [id number]) Pelvic Floor Assessment Urine Urinary Symptoms Incomplete Emptying,Falling Out Feeling/Heavy,Pain Other Urinary Symptoms No urinary leakage Bowel Other Bowel Symptoms Mostly daily BM's Diagnosed with gastroparesis. BM's type 4-6 if pain. Pelvic Clock Pelvic Clock 12-3 Tenderness Pelvic Clock 3-6 Tenderness Pelvic Clock 6-9 Tenderness Pelvic Clock 9-12 Tenderness Pelvic Clock Other Vaginal gapping present. External PF is dry and extremely tender to palpation. Prolapse Cystocele Grade 2 Rectocele Grade 2 Perineal Descent Resting Present Bearing Present Contraction Ability Voluntary Contraction Weak Voluntary Relaxation Moderate Manual Muscle Testing Left 2 Manual Muscle Testing Right 0 Manual Muscle Testing Anterior 0 Manual Muscle Testing Posterior 3 Muscle Endurance (Seconds) 1 PT-OP-J Posture/Palpation/Skin Start: 01/15/23 17:56 Freq: Status: Active Protocol: Document 01/25/23 12:37 LRN (Rec: 01/25/23 19:35 LRN [id number]) Palpation Assessment Location PF Palpation Location Internal PF Palpation Findings Tenderness Palpation Details Bladder appears to be in proper position. Abdomen Palpation Location Anterior abdominal region from Xiphoid process to Pubic Symphysis. Palpation Findings Tenderness Palpation Details Minimal ms contraction noted. DR: 2 below umbilicus to pubic symphysis: 2 finger width. PT-OP-K Range of Motion Start: 01/15/23 17:56 Freq: Status: Active Protocol: Document 01/16/23 15:03 LRN (Rec: 01/16/23 17:43 LRN [id number]) Lumbar Spine Range of Motion Lumbar Spine Active Degrees Testing Position Standing Flexion 48 Extension 1 Rotation Left 10 Rotation Right 10 Lateral Flexion Left 7 Lateral Flexion Right 7 Comments Trunk Flexion is 48 deg?s with 30 deg?s hip flexion, Trunk extension is 1 deg?s with 0 deg?s hip extension. Spine feels like seizing up. Hip Goniometric Range of Motion Hip Right Passive Testing Position Supine Internal Rotation 30 External Rotation 70 Left Passive Testing Position Supine Internal Rotation 45 External Rotation 65 PT-OP-M Strength Start: 01/15/23 17:56 Freq: Status: Active Protocol: Document 01/16/23 15:03 LRN (Rec: 01/16/23 17:43 LRN [id number]) Trunk Strength Trunk Manual Muscle Testing Core Stabilization Lacks core controll with MMT of LE's. Comments Not able to palpate abdominal flexors with supine head lifts . Hip Strength Hip Manual Muscle Testing Right Flexion (L2) 3+ Fair+ Extension (S1) 4 Good Abduction 3+ Fair+ Adduction 3 Fair External Rotation 4+ Good+ Internal Rotation 4+ Good+ Left Flexion (L2) 3+ Fair+ Extension (S1) 3 Fair Abduction 3+ Fair+ Adduction 3+ Fair+ External Rotation 4 Good Internal Rotation 4+ Good+ PT-OP-T Assessment and Plan Start: 01/15/23 17:56 Freq: Status: Active Protocol: Document 04/13/23 17:21 LRN (Rec: 04/13/23 17:27 LRN [id number]) Physical Therapy Assessment Goals Five Impairment Decreased PF strength with Cystocele and Rectocele stage 2. Impairment Pt sits for 20-30' sometimes before being able to urinate. Short Term Goal (STG) Pt will be educated in coordination of breathwork with transfers and exercise to limit core pressures with mobility. STG Duration 02/09/23 (01/25/23: MET GOAL) Facility Engineer Goal (LTG) Pt will report decreased sensation of insides falling out (in a less consistent basis), and decrease sitting time before urination begins.. LTG Duration 04/16/23 (04/13/23: NOT MET GOAL) Four Impairment Decreased trunk and hip mobility. Impairment Trunk AROM: Flex 48 deg's, Ext 1 deg, SB 7 deg's bilaterally. Hip PROM: ER is 70 deg's R, 65 deg's L; IR is 30 deg's R, 45 deg's L. Short Term Goal (STG) Pt will be educated and will be able to demonstrate proper deep breathing technique at rest and with transfers. 01/25/23: Pt educated in proper deep breathing technique at rest and with transfers. Not yet able to demonstrate technique independenly, requires cuing. STG Duration 02/09/23 progressing 01/25/23 Half-Way Goal (LTG) Pt will demonstrate improved trunk and hip mobility with decrease in onset of pain and pt able to resume intercourse. LTG Duration 04/16/23 (04/13/23: NOT MET GOAL) Three Impairment External and Internal PF pain Impairment Dry and red tissue internally and externally. Short Term Goal (STG) Pt will be assessed for use of medication by primary care physician or OBGYN, to decrease redness of external PF tissues. STG Duration 02/09/23 (04/13/23: NOT MET GOAL) Half-Way Goal (LTG) Decrease Pain with moderate palpation of external and internal PF tissues. LTG Duration 04/16/23 (04/13/23: NOT MET GOAL) Two Impairment Hypersensitivity of abdomen & pubic region with pain on palpation. Short Term Goal (STG) Pt educated in deep breathing for lowering set point of sympathetic system and education to decrease vagus nerve stimulation, and will be educated in proper sitting/ standing posture. 01/25/23: Pt educated in deep breathing for lowering set point of sympathetic system and educated in breathing to stim vagus nerve. STG Duration 02/09/23 partially met goal Half-Way Goal (LTG) Pt will be able to tolerate moderate to deep palpation of abdomen and pubic region for self soft tissue mobilization on home program. LTG Duration 04/16/23 (04/13/23: NOT MET GOAL) Assessment Summary Assessment Pt was seen for 2 therapy visits in 2 months and her plan of care has now . I was unable to reach the patient by phone; therefore message was left informing pt of discharge due to lack of attendance and that she will need a new referral before coming back to physical therapy. Most goals were not met as pt did not complete the rehab program. Physical Therapy Plan Discharge Physical Therapy Discharge Reasons No Longer Attending PT Discharge Comments Pt being discharged due to lack of attendance. Thank you for your referral.
== END 2023-04-26 10:00 | disposition home or self-care (01) ==
LOC: PHYS 12:30
PROVIDERS: Absent Provider Family Medicine; Family Provider Family Medicine; PCP Family Medicine; Referring Provider Family Medicine; Visit Provider Family Medicine
DX: R10.9 Unspecified abdominal pain (principal); G89.29 Other chronic pain; M54.50 Low back pain, unspecified; M25.659 Stiffness of unspecified hip, not elsewhere classified; M62.00 Separation of muscle (nontraumatic), unspecified site; N94.819 Vulvodynia, unspecified; N94.10 Unspecified dyspareunia
CPT/HCPCS: 97110; 97140; 97162; 97535

== ENCOUNTER 2023-06-21 08:46 | Day surgery (SDC) | payer OTHER, SELFPAY ==
[2023-06-15 16:28] VITALS: BMI 20.3
[2023-06-21] VITALS (9 sets, daily range): BP systolic 98–123; BP diastolic 67–81; PULSE 65–102; RESP 14–24; TEMP 36.5–37.3; O2SAT 97–100; BMI 19.5
--- NOTE | 2023-06-21 | PATH_ITS ---
[facility] Accession Number: [id number] No. of containers..02 Tissue . 01 Material submitted: . PART A: peritoneum - PERITONEAL BIOPSY, LEFT PELVIC SIDE WALL PART B: peritoneum - PERITONEAL BIOPSY, LEFT POSTERIOR CUL DE SAC . 01 Diagnosis: A. Left Pelvic Sidewall, Peritoneal Biopsy: Mesothelial-lined fibroconnective and adipose tissue with surface inclusion cyst, and focal calcifications, see microscopic description. Negative for endometriosis. Negative for malignancy. . B. Left Posterior Cul-de-sac, Peritoneal Biopsy: Mesothelial-lined fibroconnective and adipose tissue with focal mild chronic inflammation. Negative for endometriosis. Negative for malignancy. MRV 07/02/2023 1334 Local . 01 Electronically signed: . Carmen Castanon MD, Pathologist NPI- [id number] . 01 Gross description: . A. Received in formalin, labeled with the patient's name, , and peritoneum left pelvic sidewall, and consists of a salazar, membranous soft tissue fragment measuring 1.2 x 0.7 x 0.1 cm. One aspect is inked green. The specimen is bisected and submitted entirely in cassette A1. B. Received in formalin, labeled with the patient's name, , and peritoneal bx left posterior cul-de-sac, and consists of a salazar, membranous soft tissue fragment measuring 0.7 x 0.4 x 0.1 cm. One aspect is inked orange. The specimen is bisected and submitted entirely in cassette B1. ([id number]) /FROzzie 06/23/2023 1656 Local . 01 Microscopic: . A. Multiple deeper levels have been examined without histologic evidence of endometriosis. To better evaluate the calcifications, multiple deeper levels have been performed to exhaust the tissue, and no epithelial lining is identified, associated with those calcifications. The findings may be secondary to endosalpingiosis. . There is no evidence of atypia or malignancy. . Dr. Wendy De La Vega agrees with the findings. . B. Multiple deeper levels have been examined without evidence of endometriosis. . There is no evidence of atypia or malignancy. . 01 Pathologist provided ICD-10: R10.2 . 01 CPT . 273447, 428077 Specimen Comment: A courtesy copy of this report has been sent to [phone] Performed at: 01 [facility] [address] [place] [address] [address], [place], [place] [id number] MD Dayo Garay MD Phone: [phone]
[2023-06-21] MEDS: LACTATED RINGERS 1,000 ML 100 ML IV ×3 (08:57→11:46)
[2023-06-21] MEDS: CEFAZOLIN 2 GM/100 ML PREMIX 100 ML IV (10:20)
--- NOTE | 2023-06-21 10:24 | PM.PREOP ---
Pre-operative Note COVID-19 COVID-19 status: Not tested Interval Note History & Physical reviewed/Exam performed by Physician: Yes Changes to H&P: No
--- NOTE | 2023-06-21 10:34 | SUR.OPER ---
Lithotomy on padded OR bed, head on pillow, arms padded and tucked. Legs secured in padded yellow fins stirrups.
[2023-06-21] MEDS: BUPIVACAINE 0.5% (PF) 30 ML, EPINEPHrine 0.15 MG INJ (10:40)
[2023-06-21] MEDS: ACETAMINOPHEN IV 1,000 MG/100 ML VIAL 400 MG IV (10:49)
--- NOTE | 2023-06-21 11:23 | PM.GYNOP.1 ---
Operative Date/Time/Diagnoses Date of procedure: 06/21/23 Time of procedure: 10:20 Pre-op diagnosis: Chronic pelvic pain Dysmenorrhea Post-op diagnosis: other (BRENT; Peritoneal endometriosis (presumptive diagnosis), Possible pelvic congestion syndrome) Procedure & Clinicians Procedure: Procedures Operation Date: 06/21/23 09:45 Actual Procedure Side Surgeon prabhu PRATT Laparoscopy excision of Endometriosis Kiet Harp MD Indications: Patient is a 38-year-old 1 para 1 who presents for diagnostic laparoscopy with possible lysis of adhesions and fulguration of endometriosis due to chronic pelvic pain, dysmenorrhea, and dyspareunia. Surgeon: Kiet Harp Anesthesia Type: General Operative Notes Findings: The uterus is normal in size and appears to be possibly bicornuate. There were several small clear blebs coming from the surface serosa but otherwise the uterus itself is normal and in a retroverted position. The anterior cul-de-sac is unremarkable with no evidence of scarring or endometriosis. In the posterior cul-de-sac is approximately 3-4 cc of bloody fluid. Both fallopian tubes appear be completely normal as do the ovaries which are small and unremarkable. On the left side of the posterior cul-de-sac immediately lateral to the distal uterosacral ligament on the left is what appears to be a masters window with light brown implants suggestive of peritoneal endometriosis. This area was excised and submitted as a pathologic specimen. Also in the posterior cul-de-sac is a small area of whitish peritoneum which was also excised and submitted as a pathologic on the right side of the uterus the parametrial veins are prominent more so than on the left. The ovarian veins on both sides are also prominent with the left side being more so than the right. The appendix appeared to be normal to laparoscopic inspection as does the upper abdomen. Estimated blood loss (mL): 5 Blood products transfused: none Procedure in detail: With the patient under satisfactory general anesthesia in the modified dorsal lithotomy position, the perineum, vagina, and abdomen were prepped and draped in the usual manner for laparoscopy. A pre-surgical safety time-out was then taken in accordance with [facility] OR protocols. A bivalve speculum was inserted in the vagina and the anterior lip of the cervix grasped with a single-tooth tenaculum. The endocervical canal was dilated with Hegar dilators and a Zumi manipulator inserted into the endometrial cavity. The umbilicus was infiltrated with 0.25% Marcaine with epinephrine and a 1 cm vertical umbilical incision was made in the inferior edge. A Veress needle was then used to insufflate the abdomen with carbon dioxide once insufflated a 5 mm trocar and sleeve were placed through the umbilical incision. A 2nd and 3rd laparoscopy port was placed in the right and left mid quadrants using a 5 mm trocar and sleeve after infiltration of the tissues with 0.25% Marcaine with epinephrine. Using a 3 puncture technique the abdominal cavity and pelvis were thoroughly inspected with the findings as noted previously. Using a [place] grasper, the suspected area of endometriosis on the left sidewall adjacent to the distal USL was elevated and undermined with scissors as well as judicious use of monopolar current for coagulation of any small bleeding points. The area was then dissected with the scissors and removed as a surgical specimen. The area that had been dissected was carefully inspected and the area of dissection was medial to the ureter which was seen to be freely peristalsing lateral to the excision site. Careful inspection of the pelvic was again conducted and a small area of whitish discoloration of the posterior cul de sac peritoneum was noted and also excised using laparoscopic scissors. No bleeding was encountered. At the completion of the case there was no other evidence of endometriosis or other abnormality seen. The operation was then terminated by venting of the hemoperitoneum and removal of the laparoscopic sleeves. Closure of the laparoscopy incisions were then performed with 4-0 Monocryl using inverted interrupted stitches and appropriate dressings were applied to all incisions. The patient was then awakened from anesthesia and transferred to the PACU for a period of observation recovery after having tolerated procedure well Complications: none Post-operative Condition: stable Disposition: PACU Plan for aftercare: Routine postoperative care.
[2023-06-21] MEDS: KETOROLAC 30 MG/ML VIAL IV (11:26)
[2023-06-21] MEDS: ONDANSETRON 4 MG/2 ML INJ IV ×2 (11:27→13:08)
[2023-06-21] MEDS: HYDROMORPHONE 1 MG INJ IV (11:40)
[2023-06-21] MEDS: METOCLOPRAMIDE 10 MG/2 ML INJ IV (11:45)
--- NOTE | 2023-06-21 11:51 | SUR.PHASEI ---
Handoff to Raul MARIE
[2023-06-21] MEDS: OXYCODONE IR 5 MG TABLET PO ×2 (12:09→13:46)
== END 2023-06-21 14:08 | disposition home or self-care (01) ==
PROVIDERS: Family Provider Family Medicine; PCP Family Medicine; Referring Provider Obstetrics & Gynecology; Visit Provider Obstetrics & Gynecology
PROC: 0U5B4ZZ Destruction of Endometrium, Percutaneous Endoscopic Approach (ICD-10-PCS; CPT 58662; principal; 2023-06-21 09:45)
DX: N94.6 Dysmenorrhea, unspecified (principal); N94.10 Unspecified dyspareunia; N94.89 Other specified conditions associated with female genital organs and menstrual cycle; K65.9 Peritonitis, unspecified
CPT/HCPCS: 58662; J0131; J0171; J0690; J1100; J1170; J1885; J2405; J2704; J2765; J3010

== ENCOUNTER → 2023-07-06 12:49 | Outpatient (CLI) | payer OTHER, SELFPAY ==
--- NOTE | 2023-07-06 12:49 | DI.CT.S_ITS ---
PROCEDURE: CT ABDOMEN W CON INDICATIONS: Pain/tenderness above, at and below L laparoscopy incision TECHNIQUE: After the administration of intravenous contrast, axial sections were acquired from the lung bases to the pubic symphysis. Coronal and sagittal reformats were performed. For radiation dose reduction, the following was used: automated exposure control, adjustment of mA and/or kV according to patient size. COMPARISON:None. FINDINGS: Image quality: Excellent. Lung bases: Unremarkable. Heart: No significant findings. ABDOMEN: Liver: Unremarkable. Gallbladder: Contracted. No gallbladder inflammation found. Biliary ducts: Unremarkable. Pancreas: Unremarkable. Spleen: Unremarkable. Adrenal Glands: Unremarkable. Kidneys and Ureters: Unremarkable. Stomach and Bowel: Stomach, small bowel loops, and colon are unremarkable. Peritoneum: No abnormal intraperitoneal fluid. No free air. Ventral Wall: No hernia. Abdominal Nodes: No retroperitoneal or mesenteric adenopathy by size criteria. Vessels: Aorta and inferior vena cava are normal in size. PELVIS: Pelvic Organs: Unremarkable. Bladder: Unremarkable. Pelvic Nodes: No enlarged lymph nodes. Miscellaneous: No inguinal hernias are seen. At the left lower quadrant a metallic marker was placed lateral to a site of slight irregularity within the subcutaneous fat and slight cutaneous thickening, respectively seen on series 2, image 45 and series 2, image 46. No abnormal associated fluid collection, and no hematoma or postoperative seroma is seen in this area. The underlying bowel and peritoneal surfaces appear normal. No free air found. Bones: Unremarkable. IMPRESSION: Slight postoperative change as discussed, expected. No evidence of infection or underlying hematoma or bowel injury. Dictated by: Vlad Quarles M.D. on 07/06/2023 at 15:22 Approved by: Vlad Quarles M.D. on 07/06/2023 at 15:25
== END ==
PROVIDERS: Family Provider Family Medicine; PCP Family Medicine; Referring Provider Obstetrics & Gynecology; Visit Provider Obstetrics & Gynecology
DX: R10.9 Unspecified abdominal pain (principal); Z98.890 Other specified postprocedural states
CPT/HCPCS: 74160; Q9967

== ENCOUNTER 2023-09-07 16:00 | Inpatient (IN) | payer OTHER, SELFPAY ==
[2023-08-30 14:00] VITALS: BMI 21.7
[2023-09-06] VITALS (15 sets, daily range): BP systolic 107–116; BP diastolic 66–99; PULSE 91–107; RESP 13–19; TEMP 35.8–37.2; O2SAT 94–100; BMI 21.7
--- NOTE | 2023-09-06 | PATH_ITS ---
[facility] Accession Number: [id number] No. of containers..01 Tissue . 01 Material submitted: . uterus - UTERUS AND TUBES . 01 Diagnosis: Uterus and Tubes, Hysterectomy and Bilateral Salpingectomies (Weight 95 grams): Cervix with focal cytologic atypia, suggestive of patchy, mild involvement by low-grade squamous intraepithelial lesion / KELSEA-1. Endocervix with prominent Nabothian gland cysts and no significant histomorpholgic abnormality. Weakly proliferative endometrium; negative for significant atypia. Myometrium with no significant histomorphologic abnormality. Uterine serosa with no significant histomorphologic abnormality. Longer fallopian tube, complete cross sections; negative for significant atypia. Crucible fallopian tube, complete cross sections; negative for significnat atypia. [facility] 09/14/2023 1543 Local . 01 Electronically signed: . Debi De La Vega MD, Pathologist NPI- [id number] . 01 Gross description: . The specimen is received in formalin labeled with the patient's name, , and uterus and tubes, consists of an intact uterus (95 grams, 7.3 cm from superior to inferior, 6.4 cm from medial to lateral, and 3.5 cm from anterior to posterior) with attached cervix (3.7 x 3.4 cm), two detached unoriented fimbriated fallopian tubes (6.9 x 0.7 cm and 5.4 x 0.7 cm, respective), and no additional adnexa identified. The ectocervix is salazar and wrinkled with a patulous os measuring 0.9 cm in diameter. The anterior paracervical margin is inked blue while the posterior paracervical margin is inked black. The serosa is salazar and smooth with no evidence of hemorrhage or adhesion identified. The endocervical canal has salazar herringbone mucosa, measures 3.2 cm in length. The endometrial cavity measures 3.1 cm from cornu to cornu and 3.0 cm in length with salazar velvety endometrium that averages 0.1 cm thick with no lesions identified. The myometrium is pink-salazar and trabecular measuring up to 2.0 cm in maximum thickness with no lesions or nodules identified. . Both tubes have violaceous smooth serosa with no cystic structures identified, and sectioning reveals unremarkable stellate lumens. University Relations Vice President sections are submitted as follows: A1: Anterior cervix. A2: Posterior cervix. A3: Anterior full thickness section. A4: Posterior full thickness section. A5: Serosa. A6: Longer fallopian tube to include one-half of bisected fimbriae and cross sections. A7: Crucible fallopian tube to include one-half of bisected fimbriae and cross sections. ([id number]) /MRV 09/07/2023 1110 Local . 01 Pathologist provided ICD-10: R10.2, N94.89 . 01 CPT . 586800 Specimen Comment: A courtesy copy of this report has been sent to [phone] Performed at: 01 [facility] [address] [place] [address] [address] [facility], [place], [place] [id number] MD Dayo Garay MD Phone: [phone]
[2023-09-06] MEDS: LACTATED RINGERS 1,000 ML 42 ML IV ×2 (13:00→14:56)
--- NOTE | 2023-09-06 13:13 | PM.PREOP ---
Pre-operative Note Interval Note History & Physical reviewed/Exam performed by Physician: Yes Changes to H&P: No H&P completed within 30 days and has changed as indicated here:: 08/31/23
[2023-09-06] MEDS: SCOPOLAMINE 1 PATCH TOP (13:14)
--- NOTE | 2023-09-06 13:16 | SUR.OPER ---
Lithotomy on padded OR bed. [place] Pad Positioner under torso. Head on pillow, arms padded and tucked at sides. Legs secured in padded yellow fins stirrups.
[2023-09-06] MEDS: CEFAZOLIN 2 GM/100 ML PREMIX 100 ML IV (13:52)
[2023-09-06] MEDS: ACETAMINOPHEN IV 1,000 MG/100 ML VIAL 400 MG IV (14:03)
[2023-09-06] MEDS: BUPIVACAINE 0.5% (PF) 30 ML, EPINEPHrine 0.15 MG INJ ×2 (14:05→14:34)
[2023-09-06] MEDS: ROPIVACAINE 0.2% PF 2 MG/ML 10ML AMP 20 ML INJ (15:37)
--- NOTE | 2023-09-06 16:43 | PM.GYNOP.1 ---
Operative Date/Time/Diagnoses Date of procedure: 09/06/23 Time of procedure: 16:43 Pre-op diagnosis: Pelvic pain Pelvic congestion Endometriosis Cystocele and rectocele Post-op diagnosis: same Procedure & Clinicians Procedure: Procedures Operation Date: 09/06/23 13:15 Actual Procedure Side Surgeon p Laparoscopic VAGINAL Hysterectomy with bilateral salpingectomy, perineorrhaphy, anterior posterior repair Kimberlyn Garcia MD s Anterior/Posterior Repair Kimberlyn Garcia MD Indications: Patient is a 38-year-old with pelvic congestion, pelvic pain, endometriosis, and pelvic relaxation including cystocele and rectocele. Surgeon: Kimberlyn Garcia Outpatient Services Director: Sylwia Becerra Anesthesia Type: General and Local Operative Notes Findings: 8 week size uterus Long, streak, ovaries Normal tubes Third-degree cystocele Third-degree rectocele Second to third-degree uterine prolapse Closure Type: primary Specimen(s): left tube, right tube and uterus Applied: catheter (To continuous drainage) and other (Vaginal packing in place) Estimated blood loss (mL): 250 Blood products transfused: none Procedure in detail: The patient was taken to the operating room where she was placed in the dorsal supine position. After adequate general endotracheal anesthesia was achieved, she was placed in the dorsal lithotomy position, and prepped and draped in the usual sterile fashion. A bivalve speculum was placed into the vagina, and a single-tooth tenaculum was placed on the anterior lip of the cervix. The cervical os was sequentially dilated until the ZUMI uterine manipulator could pass easily into the endometrial cavity. The single-tooth tenaculum was removed from the anterior lip of the cervix, and the bivalve speculum was removed from the vagina. Attention was then turned to the abdomen where 6 mL of half percent Marcaine with epinephrine were injected in the umbilical fold through the previous incision. A 5 mm incision was made. The Verees needle was placed into the peritoneal cavity, and its placement confirmed by aspiration and drop test. The abdominal cavity was insufflated with 4 L of CO2. The Verees needle was removed, and a 5 mm trocar was placed without difficulty. Initial inspection of the pelvis revealed the findings noted above. 2 other incisions were made midway between the pubic symphysis and umbilicus 4 cm lateral to the midline. These were 5 mm incisions. Two 5 mm trocars were placed under direct visualization. The right tube was grasped with an atraumatic grasper. The mesosalpinx on the right side was cauterized and cut with the Powerseal. The round ligament and broad ligament were cauterized and cut. This was continued to the level of the uterine arteries. This was repeated on the patient's left side. The instruments were removed from the abdomen. Attention was then turned to the vagina where the ZUMI uterine manipulator was removed from the uterus. The cervix was grasped with a 4 tooth tenaculum. 10 mL of quarter percent Marcaine with epinephrine were injected circumferentially around the cervix. The cervix was circumscribed. The bladder and rectum were dissected off the lower uterine segment and cervix with an open moistened Ray-Avel. The peritoneum was entered sharply with the Metzenbaum scissors anteriorly and a Attila placed. The peritoneum was entered posteriorly with the Metzenbaum scissors and the long weighted speculum was placed into the posterior cul-de-sac. The uterosacral cardinal ligament complexes were clamped, transected, and suture ligated with 0 Vicryl. These were attached to hemostats. The uterine arteries were clamped, transected, and suture ligated with 0 Vicryl. The uterus was handed off for specimen with the tubes and ovaries. The vaginal cuff was closed with 0 Vicryl with a series of simple interrupted sutures. The tagged sutures were cut. 2 Allis clamps were placed at the apex of the cystocele. 6 mL of half percent Marcaine with epinephrine were injected and an incision was made with a #10 blade between the 2 Allis clamps. Wide Allis clamps were placed on the midline of the cystocele approximately 6. The mucosa was undermined using the Metzenbaum scissors and the mucosa incised in the midline moving the wide Allis clamps to the edges of the mucosa. The mucosa was dissected off the underlying fascia using an open moistened Ray-Avel and a #10 blade. The fascia was reapproximated with 0 Vicryl with a series of horizontal mattress sutures. The excess vaginal mucosa was excised. The mucosa was closed using simple interrupted sutures with 2-0 Vicryl including the underlying fascia to close the space. The weighted speculum was removed from the vagina. Allis clamps were placed at the mucocutaneous junction at the introitus. 6 mL of half percent Marcaine with epinephrine were injected. An incision was made with a #10 blade between the 2 Allis clamps, and a triangular piece of skin and underlying subcutaneous tissue was removed. Allis clamps were placed in the midline of the rectocele. 10 mL of half percent Marcaine with epinephrine were injected submucosally. The mucosa was undermined using the Metzenbaum scissors and the mucosa incised in the midline, moving the wide Allis clamps to the mucosal edges. The underlying fascia was dissected off of th mucosa using an open moistened Ray-Avel and a #10 blade. The fascia was reapproximated using 0 Vicryl with a series of horizontal mattress sutures. The excess vaginal mucosa was excised. The mucosa was closed using a series of simple interrupted sutures with 2-0 Vicryl including the underlying fascia to close the space. On the perineum 0 Vicryl was used to reapproximate the levator muscle. The subcutaneous layer was closed with 2-0 Vicryl. The skin was closed with 3-0 chromic in a subcuticular fashion. Hemostasis was achieved. Gloves were changed on mechanical manufacturing technician and surgeons. Attention was turned back to the abdomen. The abdomen was re-insufflated with carbon dioxide gas. The pelvis was examined. There was small amount of oozing from the vaginal cuff. Interceed was placed. FloSeal was placed. The area was observed for 15 minutes. There was no additional bleeding. The instruments were removed from the abdomen. The CO2 was allowed to escape. The incisions were closed with 4-0 Monocryl in a subcuticular fashion. Steri-Strips and Allevyn dressings were placed. Attention was turned back to the vagina. A rectal exam was performed and there were no sutures palpable. A Betadine moistened vaginal pack was placed into the vagina. The urine was clear. Sponge, lap, and instrument counts were correct x-2. The patient tolerated the procedure well, was taken to PACU in stable condition. Complications: none Post-operative Condition: stable Disposition: PACU Plan for aftercare: To acute care after recovery
[2023-09-06] MEDS: ONDANSETRON 4 MG/2 ML INJ IV ×2 (17:29→19:59)
[2023-09-06] MEDS: OXYCODONE IR 5 MG TABLET PO ×2 (17:29→23:14)
[2023-09-06] MEDS: METOCLOPRAMIDE 10 MG/2 ML INJ IV (18:06)
[2023-09-06] MEDS: LACTATED RINGERS 1,000 ML 100 ML IV (18:06)
[2023-09-06] MEDS: ACETAMINOPHEN 325 MG TABLET 650 MG PO ×2 (18:11→23:15)
[2023-09-06] MEDS: hydrOXYzine pamoate 25 MG CAPSULE PO (18:14)
[2023-09-06] MEDS: MORPHINE 2 MG/ML INJ IV (19:59)
[2023-09-06] MEDS: DOCUSATE 100 MG CAPSULE 200 MG PO (20:02)
[2023-09-06] MEDS: OXYCODONE IR 5 MG TABLET 10 MG PO (21:34)
[2023-09-07] VITALS: BP 110/57; PULSE 102; RESP 17; TEMP 36.7; O2SAT 96
[2023-09-07] MEDS: MORPHINE 2 MG/ML INJ IV ×4 (00:01→20:24)
[2023-09-07] MEDS: METOCLOPRAMIDE 10 MG/2 ML INJ IV ×2 (00:02→05:59)
[2023-09-07] MEDS: PHENAZOPYRIDINE 100 MG TABLET PO ×4 (00:55→20:24)
[2023-09-07] MEDS: TAMSULOSIN 0.4 MG CAPSULE 0.8 MG PO ×2 (00:55→09:36)
[2023-09-07] MEDS: OXYCODONE IR 5 MG TABLET PO ×3 (00:55→23:36)
[2023-09-07] MEDS: OXYBUTYNIN 5 MG ER TAB 10 MG PO ×2 (00:55→09:37)
[2023-09-07 04:00] VITALS: BP 103/68; PULSE 99; RESP 17; TEMP 35.9; O2SAT 97
[2023-09-07] MEDS: ACETAMINOPHEN 325 MG TABLET 650 MG PO ×4 (05:02→23:35)
[2023-09-07 05:30] LABS: Add Manual Diff / Slide Review NO; Basophils Absolute Auto 0 /uL (0-100); Basophils Percent Auto 0.1 % (0-2); Eosinophils Absolute Auto 0 /uL (0-450); Hematocrit 35.8 % (36-46); Hemoglobin 12.5 g/dL (12.0-16.0); Lymphocytes Absolute Auto 900 /uL (1100-4500); Lymphocytes Percent Auto 12.5 % (25-40); Mean Corpuscular HGB Conc 34.9 % (30-36); Mean Corpuscular Hemoglobin 31.5 PG (26-34); Mean Corpuscular Volume 90.1 fL (80-100); Monocytes Absolute Auto 400 /uL (0-900); Monocytes Percent Auto 5.3 % (3-14); Neutrophils Absolute Auto 6000 /uL (1500-7000); Neutrophils Percent Auto 82.1 % (50-75); Platelet Count 208 X10^3/uL (150-400); Red Blood Cell Count 3.97 X10^6/uL (4.0-5.2); Red Cell Distribution Width 12.4 % (11.6-14.8); White Blood Cell Count 7.3 X10^3/uL (4.5-11.0)
[2023-09-07 05:42] LABS: BUN Creatinine Ratio 11.8 (6-22); Blood Urea Nitrogen 6 mg/dL (7-17); Carbon Dioxide 23 mmol/L (22-32); Chloride 103 mmol/L (98-107); Estimated Glomerular Filt Rate > 60 mL/min (>60); Glucose 92 mg/dL (70-100); HEMOLYSIS < 15 (0-50); Potassium 3.8 mmol/L (3.4-5.1); Sodium 131 mmol/L (137-145)
[2023-09-07] MEDS: OXYCODONE IR 5 MG TABLET 10 MG PO ×3 (06:18→16:37)
[2023-09-07 08:36] VITALS: BP 108/64; PULSE 91; RESP 18; TEMP 37.2; O2SAT 100
--- NOTE | 2023-09-07 08:40 | CM.DANOTE ---
Initial DCP Assessment Note Patient is a 38 yo F, resident of [place]. 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 No barriers identified to patient returning home w/family, close outpatient follow up, when medically cleared to do so. CM team will plan to follow closely for any DC needs or concerns that might arise. CHARLEY Maxwell Discharge Planning/Care Management CM Discharge Assessment Start: 09/07/23 08:36 Freq: Status: Active Protocol: Document 09/07/23 08:36 KAYODE (Rec: 09/07/23 08:40 [id number]) Discharge Planning Assessment Assigned Airport Manager CHARLEY Hudson DPOA/Assigned Designee Name Zoey (mother) Michele Herediaerton, spouse Contact Information mother [phone] spouse [phone] Advance Directives? No History Provided By Patient,Medical Record Prior Living Arrangements House Household Members spouse,children Type of transporation used prior to Drives own vehicle admit Independent with ADL's Yes Is patient alert and oriented? Yes Barriers to Discharge No Comment Patient is POD1 from lap vaginal hysterectomy by Dr Garcia w/Anterior/Posterior Repair, expected to return home w/.family once medically cleared to do so. Discharge Plan Home Transportation Arrangement Family Referrals Initiated None needed
[2023-09-07] MEDS: DOCUSATE 100 MG CAPSULE 200 MG PO ×2 (09:36→20:24)
[2023-09-07] MEDS: LACTATED RINGERS 1,000 ML 100 ML IV (11:43)
--- NOTE | 2023-09-07 13:47 | PC.NURSE ---
Pt set to urinate by 1245, and per MD verbal order, she wanted a post residual. Pt began to try to get up to urinate around 1100, got 200 ml out. Post void scan 545 ml. Pt insisted that she continue to try and urinate on her own by 1245. Gave pt warm blankets and encouraged pt to ambulate in room to help. Pt got 100 ml out, post void 430 ml. MD came to check on pt, did a verbal update, d/c fluids and was told pt will be staying the night. Updated orders. Pt continues to void and ambulate independently in room.
[2023-09-07] MEDS: SODIUM CHLORIDE 0.9% 500 ML 100 ML IV (16:00)
[2023-09-07 21:27] VITALS: BP 114/72; PULSE 80; RESP 18; TEMP 36.4; O2SAT 98
[2023-09-08] MEDS: OXYCODONE IR 5 MG TABLET 10 MG PO (03:43)
[2023-09-08] MEDS: ACETAMINOPHEN 325 MG TABLET 650 MG PO ×2 (05:40→11:13)
[2023-09-08 06:14] LABS: Hematocrit 33.5 % (36-46); Hemoglobin 11.7 g/dL (12.0-16.0); Mean Corpuscular HGB Conc 34.8 % (30-36); Mean Corpuscular Hemoglobin 31.4 PG (26-34); Mean Corpuscular Volume 90.2 fL (80-100); Platelet Count 184 X10^3/uL (150-400); Red Blood Cell Count 3.72 X10^6/uL (4.0-5.2); Red Cell Distribution Width 12.7 % (11.6-14.8); White Blood Cell Count 4.4 X10^3/uL (4.5-11.0)
[2023-09-08 06:19] LABS: Sodium 136 mmol/L (137-145)
[2023-09-08] MEDS: OXYCODONE IR 5 MG TABLET PO (08:08)
[2023-09-08] MEDS: DOCUSATE 100 MG CAPSULE 200 MG PO (08:08)
[2023-09-08] MEDS: TAMSULOSIN 0.4 MG CAPSULE 0.8 MG PO (08:08)
[2023-09-08] MEDS: PHENAZOPYRIDINE 100 MG TABLET PO (08:08)
[2023-09-08] MEDS: OXYBUTYNIN 5 MG ER TAB 10 MG PO (08:08)
--- NOTE | 2023-09-08 09:20 | CM.DPNOTE ---
Addendum entered by CHARLEY White 09/08/23 10:15: Per extension service specialist in charge, pt retention issue resolved and pain controlled with PO meds. Likely dc home today. SL Original Note: DCP Note LUMBER CHAIN OFFBEARER reviewed EMR. pt is POD2. Per RN note, provider wanted to keep pt another night due to voiding concerns(?). Per previous CM notes, likely home with family and OP follow up when medically cleared. CM team will continue to follow closely for any DC needs or concerns CHARLEY White
[2023-09-08 09:47] VITALS: BP 104/63; PULSE 84; RESP 16; TEMP 36.5; O2SAT 97
--- NOTE | 2023-09-08 10:38 | P.PN_ITS ---
Subjective Subjective Date Patient Seen: 09/07/23 Time Patient Seen: 08:00 Interval history: Postop day # 1 status post LAVH/bilateral salpingectomy/anterior-posterior repair/perineorrhaphy Patient had some nausea and pain issues last night. Nausea has resolved. Pain getting better. Dominguez catheter and packing were removed at 6:00 a.m.. Exam Vital Signs (past 8 hours): - 09/08/23 09:47 Temperature 97.7 F Pulse Rate 84 Respiratory Rate 16 Blood Pressure 104/63 Pulse Oximetry 97 Oxygen Flow Rate 0 Oxygen Delivery Method Room Air Oxygen Flow Rate 0 Narrative Exam Narrative: Generally: Patient lying in bed, no acute distress Lungs: Clear to auscultation bilaterally Cardiovascular: Regular rate and rhythm Abdomen: Soft and flat. Good bowel sounds Incisions: Clean dry and intact with Allevyn dressings Extremities: No edema, negative Homans Objective Labs 09/08/23 05:45 09/08/23 05:45 Labs: Laboratory Results - last 24 hr 09/08/23 05:45 WBC 4.4 L RBC 3.72 L Hgb 11.7 L Hct 33.5 L MCV 90.2 MCH 31.4 MCHC 34.8 RDW 12.7 Plt Count 184 Sodium 136 L PFSH Medical History (Updated 09/02/23 @ 22:20 by Kimberlyn Garcia MD) Anesthesia complication Gastroparesis Abdominal pain Polyarthralgia Palpitations Bronchitis Abnormal Pap smear of cervix (~2006) Surgical History (Updated 08/30/23 @ 14:05 by Dlela Blanco RN) Hx of laparoscopy (06/21/23) History of laparoscopy History of surgery History of oral surgery (~10/2000) Social History household members: spouse and children Smoking Status: Never smoker alcohol intake: never Assessment & Plan Post-op Postoperative Procedures: Procedures Operation Date: 09/06/23 13:15 Actual Procedure Side Surgeon p Laparoscopic VAGINAL Hysterectomy with bilateral salpingectomy, perineorrhaphy, anterior posterior repair Kimberlyn Garcia MD s Anterior/Posterior Repair Kimberlyn Garcia MD Postoperative day: 1 Postoperative status: marginal pain control Postoperative plan: voiding trials Postoperative plan narrative: Bladder trial Due to difficulty getting pain under control, we will keep until tomorrow Time Spent With Patient Time with patient: less than 15 minutes Quality VTE Deep Vein Thrombosis/Pulmonary Embolism Present on Admission: No
--- NOTE | 2023-09-10 12:47 | PM.DS.1 ---
History of Present Illness History of Present Illness Date Patient Seen: 09/08/23 Time Patient Seen: 10:30 Chief complaint: OPB Narrative: Patient is a 38-year-old 1 para 1 who presented on September 06, 2023 for a scheduled LAVH/bilateral salpingectomy/anterior and posterior repair. She underwent this procedure without complication. On the day of surgery she had issues with nausea and vomiting, as well as pain control. On the first postoperative day she had some issues with urinary retention and pain management. A decision was made to keep her an extra day to make sure that she was completely emptying her bladder. On postop day #2 the nausea and vomiting had resolved. Her pain was well controlled. She was completely emptying her bladder. Discharge Providers Provider Discharge Date: 09/08/23 Primary care physician: Davis Lawson DO Discharge provider: Kimberlyn Garcia MD Exam Vital Signs (past 8 hours): Oxygen Delivery Method Room Air Oxygen Flow Rate 0 Narrative Exam Narrative: Generally: Patient is sitting up in bed, no acute distress Lungs: Clear to auscultation bilaterally Cardiovascular: Regular rate and rhythm Abdomen: Soft and flat. Good bowel sounds in all 4 quadrants. Incisions: Clean dry and intact with Allevyn dressing Perineum: Scant blood Extremities: No edema, negative Homans Objective Labs 09/08/23 05:45 09/08/23 05:45 [facility] Medical History (Updated 09/02/23 @ 22:20 by Kimberlyn Garcia MD) Anesthesia complication Gastroparesis Abdominal pain Polyarthralgia Palpitations Bronchitis Abnormal Pap smear of cervix (~2006) Surgical History (Updated 08/30/23 @ 14:05 by Della Blanco RN) Hx of laparoscopy (06/21/23) History of laparoscopy History of surgery History of oral surgery (~10/2000) Social History (Reviewed 12/22/19 @ 12:44 by [facility] household members: spouse and children Smoking Status: Never smoker alcohol intake: never Discharge Assessment & Plan Assessment and Plan Assessment: Assessment: 38-year-old 1 para 1 postop day # 2 status post LAVH/bilateral salpingectomy/anterior and posterior repair Completely emptying bladder No nausea or vomiting Pain well-controlled Plan of Treatment: Discharge to home Follow-up in 2 weeks Discharge Plan Discharge Plan Patient Disposition: Home Provider Discharge Comment: Call with fever, chills, redness or drainage around the incisions, or bleeding vaginally more than spotting to light Ibuprofen 600 mg every 6 hours for the first few days, then every 6 hours as needed Tylenol 650 mg every 6 hours for the first few days, then every 6 hours as needed Stool softeners until bowel returns to normal [place] Discharge orders & Medications Discharge Orders: Discharge (Order); Ordered 09/08/23 Ordered By: Kimberlyn Garcia Prescriptions: New oxycodone 5 mg tablet 5 mg PO Q6H PRN (Reason: pain) Qty: 30 0RF Continued dextroamphetamine sulfate 10 mg capsule, extended release 20 mg PO BID 30 Days Qty: 120 0RF oxybutynin chloride 10 mg tablet extended release 24hr 10 mg PO DAILY tamsulosin 0.4 mg capsule 0.8 mg PO DAILY hydroxyzine HCl 25 mg tablet 25 mg PO ONCE PM Discontinued Mirlande Fe 1.5/30 (28) 1.5 mg-30 mcg (21)/75 mg (7) tablet 1 tab PO DAILY Qty: 168 3RF Rx Instructions: Skip the placebo and take the active pills continuously oxycodone 5 mg tablet 5 mg PO Q4H PRN (Reason: pain) Qty: 30 0RF hydrocodone-acetaminophen 5-325 mg tablet See Rx Instructions .ROUTE BID Qty: 90 0RF Dose Instruction: 1/2-1 tab PO BID ; Rx Instructions: 1/2-1 tab by mouth three times a day. limit as possible. caution regarding sedation/falls. Follow up/Referrals: Kimberlyn Garcia MD [Physician] - (My office will call to schedule 6 week postop visit 2 weeks telehealth already scheduled) Diet/Activity/Treatments Diet: Regular Activity: Nothing in the vagina for 6 weeks No heavy lifting, nothing more than a gal of milk for 6 weeks Skin/Wound/Dressing Care Report to your healthcare provider any signs of infection, such as:: chills, fever, increased pain, unusual drainage and unusual redness Dressing: Remove outer pink dressings with attached gauze tomorrow after shower Leave Steri-Strips in place Visit Report/Discharge Packet Instructions: DI for Cystocele and Rectocele Repair, DI for Hysterectomy, DI for Laparoscopy, DI for Prescription Opioid Use Stand Alone Forms: Patient Portal/API, Surgery Discharge Discharge Data Primary Care Provider: Davis Lawson Attending Provider: Kimberlyn Garcia VTE Deep Vein Thrombosis/Pulmonary Embolism Present on Admission: No
== END 2023-09-08 11:28 | disposition home or self-care (01) | DRG 743 ==
LOC: OR 09-11 06:17 → AC 09-11 06:18
PROVIDERS: Admitting Provider Obstetrics & Gynecology; Family Provider Family Medicine; PCP Family Medicine; Referring Provider Obstetrics & Gynecology; Visit Provider Obstetrics & Gynecology
PROC: 0UT94ZL Resection of Uterus, Supracervical, Percutaneous Endoscopic Approach (ICD-10-PCS; principal; 2023-09-06 13:15)
PROC: 0UT9FZZ Resection of Uterus, Via Natural or Artificial Opening With Percutaneous Endoscopic Assistance (ICD-10-PCS; 2023-09-06 13:15)
DX: N81.11 Cystocele, midline (principal); N94.89 Other specified conditions associated with female genital organs and menstrual cycle; N80.00 Endometriosis of the uterus, unspecified; N81.6 Rectocele; R33.9 Retention of urine, unspecified; R11.2 Nausea with vomiting, unspecified; G89.18 Other acute postprocedural pain
CPT/HCPCS: 36415; 57260; 58552; 80048; 84295; 85025; 85027; J0131; J0171; J0690; J1100; J1170; J2250; J2270; J2405; J2704; J2765; J2795; J3010

== ENCOUNTER → 2023-10-31 16:09 | Outpatient (CLI) | payer OTHER, SELFPAY ==
[2023-09-20 14:52] VITALS: BMI 21.7
[2023-10-31 17:01] LABS: Appearance Urine UA CLEAR; Bilirubin Urine UA NEGATIVE (NEGATIVE); Color Urine UA YELLOW; Glucose Urine UA NEGATIVE (Negative); Ketones Urine UA NEGATIVE (NEGATIVE); Leukocyte Esterase Urine UA NEGATIVE (NEGATIVE); Nitrite Urine UA NEGATIVE (Negative); Occult Blood Urine UA NEGATIVE (Negative); Protein Urine UA NEGATIVE (Negative); Urobilinogen Urine UA 0.2 E.U./dL (0.2)
[2023-10-31 17:24] LABS: Bacteria Urine None Seen; Culture Indicated Urine Cult Not Indicated; RBC Urine None Seen (0-5/HPF); Squamous Epithelial Cell Urine None Seen (0-5/HPF); Urine Volume 10mL (spun); WBC Urine None Seen (0-5/HPF)
== END ==
PROVIDERS: Family Provider Family Medicine; PCP Family Medicine; Referring Provider Obstetrics & Gynecology; Visit Provider Obstetrics & Gynecology
DX: R30.0 Dysuria (principal)
CPT/HCPCS: 81001

== ENCOUNTER → 2023-11-27 14:58 | Outpatient (CLI) | payer OTHER, SELFPAY ==
[2023-09-20 14:52] VITALS: BMI 21.7
[2023-11-27 15:19] LABS: Appearance Urine UA CLEAR; Bilirubin Urine UA NEGATIVE (NEGATIVE); Color Urine UA YELLOW; Glucose Urine UA NEGATIVE (Negative); Ketones Urine UA NEGATIVE (NEGATIVE); Leukocyte Esterase Urine UA NEGATIVE (NEGATIVE); Nitrite Urine UA NEGATIVE (Negative); Occult Blood Urine UA NEGATIVE (Negative); Protein Urine UA NEGATIVE (Negative); Urobilinogen Urine UA 0.2 E.U./dL (0.2)
[2023-11-27 15:27] LABS: Bacteria Urine Occasional (0-1); Culture Indicated Urine Cult Not Indicated; Mucus Urine 1+ (Negative); RBC Urine 0-1/HPF (0-5/HPF); Squamous Epithelial Cell Urine 1-5 /HPF (0-5/HPF); Urine Volume 10mL (spun); WBC Urine 0-1/HPF (0-5/HPF)
== END ==
PROVIDERS: Family Provider Family Medicine; PCP Family Medicine; Referring Provider Obstetrics & Gynecology; Visit Provider Obstetrics & Gynecology
DX: R30.0 Dysuria (principal)
CPT/HCPCS: 81001

== ENCOUNTER → 2024-01-17 09:28 | Outpatient (CLI) | payer OTHER, SELFPAY ==
[2023-09-20 14:52] VITALS: BMI 21.7
[2024-01-17 10:53] LABS: Appearance Urine UA CLEAR; Bilirubin Urine UA NEGATIVE (NEGATIVE); Color Urine UA YELLOW; Glucose Urine UA NEGATIVE (Negative); Ketones Urine UA NEGATIVE (NEGATIVE); Leukocyte Esterase Urine UA NEGATIVE (NEGATIVE); Nitrite Urine UA NEGATIVE (Negative); Occult Blood Urine UA NEGATIVE (Negative); Protein Urine UA NEGATIVE (Negative); Specific Gravity Urine UA 1.025 (1.000-1.035); Urobilinogen Urine UA 0.2 E.U./dL (0.2)
[2024-01-17 11:08] LABS: Bacteria Urine None Seen; Culture Indicated Urine Cult Not Indicated; Mucus Urine 2+ (Negative); RBC Urine 0-1/HPF (0-5/HPF); Squamous Epithelial Cell Urine 10-30 /HPF (0-5/HPF); Urine Volume Low Vol <10mL (spun); WBC Urine 0-1/HPF (0-5/HPF)
== END ==
PROVIDERS: Family Provider Family Medicine; PCP Family Medicine; Referring Provider Obstetrics & Gynecology; Visit Provider Obstetrics & Gynecology
DX: R30.0 Dysuria (principal)
CPT/HCPCS: 81001

== ENCOUNTER → 2024-08-18 14:01 | Outpatient (CLI) | payer OTHER, SELFPAY ==
[2024-08-18 14:22] VITALS: BMI 21.7
== END ==
PROVIDERS: Family Provider Family Medicine; PCP Family Medicine; Referring Provider Obstetrics & Gynecology; Visit Provider Obstetrics & Gynecology
DX: N89.8 Other specified noninflammatory disorders of vagina (principal)
CPT/HCPCS: 87480; 87510; 87660

== ENCOUNTER 2024-09-17 14:25 | Emergency (ER) | payer OTHER, SELFPAY ==
[2024-08-18 14:22] VITALS: BMI 21.7
[2024-09-17 14:31] VITALS: BP 120/74; PULSE 78; RESP 18; TEMP 36.9; O2SAT 97; BMI 19.5
[2024-09-17 15:06] LABS: Appearance Urine UA CLOUDY; Bacteria Urine Many (>30); Color Urine UA Orange; Culture Indicated Urine Specimen Cultured; RBC Urine 0-1/HPF (0-5/HPF); Squamous Epithelial Cell Urine None Seen (0-5/HPF); Urine Volume 10mL (spun); WBC Urine 30-100/HPF (0-5/HPF)
--- NOTE | 2024-09-17 15:17 | ED_ITS ---
HPI - General Adult General Chief complaint: Urogenital-Female Stated complaint: poss uti Time Seen by Provider: 09/17/24 14:37 Source: patient Mode of arrival: Ambulatory History of Present Illness HPI narrative: Patient was a 39-year-old female. Has a history of interstitial cystitis. Has a urinary tract infections in the past. Is here for evaluation of dysuria that initially started a couple days ago but has worsened over the past 24 hours. No vomiting. She reports frequency and urgency. No fevers. Related Data Previous Rx's Medication Instructions Recorded phenazopyridine 200 mg tablet 200 mg PO TID 6 doses #6 tabs 01/17/24 (Pyridium) estradiol 0.01% (0.1 mg/gram) 1 appful vaginal DAILY #42.5 grams 01/19/24 vaginal cream (Estrace) amitriptyline 10 mg tablet 10 mg PO DAILY #30 tabs 03/12/24 estradiol 0.1 mg/24 hr semiweekly 1 patch transdermal 2XW #8 ea 03/12/24 transdermal patch vibegron 75 mg tablet (Gemtesa) 75 mg PO DAILY #30 tabs 03/12/24 ondansetron 4 mg disintegrating 4 mg PO Q6H PRN for 05/20/24 tablet nausea/vomiting #20 tabs tretinoin 0.025 % topical cream 1 applic topical BEDTIME #20 grams 05/26/24 nystatin-triamcinolone 100,000 1 applic topical BID #30 grams 08/20/24 unit/gram-0.1 % topical ointment dextroamphetamine sulfate 10 mg 20 mg (2 x 10 mg) PO BID 30 days 09/02/24 capsule,extended release #135 caps hydrocodone 5 mg-acetaminophen 325 See Rx Instructions .Route BID 09/02/24 mg tablet pain #90 tabs fluconazole 150 mg tablet 150 mg PO QWEEK recurrent yeast 09/15/24 infections 4 weeks #4 tabs nitrofurantoin 100 mg PO Q12H 5 days #9 caps 09/17/24 monohydrate/macrocrystals 100 mg capsule (Macrobid) Allergies Allergy/AdvReac Type Severity Reaction Status Date / Time amoxicillin Allergy Severe Rash Verified 09/17/24 14:36 Review of Systems Review of Systems ROS Unobtainable: All systems reviewed & are unremarkable except as noted in HPI and below Patient History Medical History Acne vulgaris Anesthesia complication Gastroparesis Abdominal pain Polyarthralgia Palpitations Bronchitis Abnormal Pap smear of cervix (~2006) Surgical History Hx of laparoscopy (06/21/23) History of laparoscopy History of surgery History of oral surgery (~10/2000) Social History household members: spouse and children Smoking Status: Never smoker alcohol intake: never Smoking Status: Never smoker alcohol intake frequency: 0-2 drinks per day Exam Initial Vital Signs Initial Vital Signs: Vital Signs Temperature 98.5 F 09/17/24 14:31 Pulse Rate 78 09/17/24 14:31 Respiratory Rate 18 09/17/24 14:31 Blood Pressure 120/74 09/17/24 14:31 Pulse Oximetry 97 09/17/24 14:31 Oxygen Delivery Method Room Air 09/17/24 14:31 Const General: cooperative and comfortable HENMT Head: normal to inspection and normocephalic Resp Effort & Inspection: normal respiratory effort Cardio Rate: regular rate Skin General: no rashes or lesions noted Neuro General: patient alert and patient awake Extrem General: normal to inspection Course Orders Ordered: ED Orders 09/17/24 14:45 Urinalysis and Microscopic Stat Urine Culture Stat Discontinued Medications Nitrofurantoin Macrocrystals (Nitrofurantoin Er 100 Mg Capsule) 100 mg PO NOW ONE Stop: 09/17/24 15:19 Vital Signs Vital signs: Vital Signs - 8 hr 09/17/24 14:31 Temperature 98.5 F Pulse Rate 78 Respiratory Rate 18 Blood Pressure 120/74 Pulse Oximetry 97 Oxygen Delivery Method Room Air Medical Decision Making Medical Records Medical records reviewed: Yes I reviewed the patient's medical records. Lab Data Lab results reviewed: Yes I reviewed the patient's lab results. Labs: Lab Results 09/17/24 Range/Units 14:45 Urine Color Junction Urine Appearance Cloudy Urine pH TNP Ur Specific [place] TNP Urine Protein TNP Urine Glucose (UA) TNP Urine Ketones TNP Urine Occult Blood TNP Urine Nitrate TNP Urine Bilirubin TNP Urine Urobilinogen TNP Ur Leukocyte Esterase TNP Urine RBC 0-1/hpf (0-5/HPF) Urine WBC 30-100/hpf H (0-5/HPF) Ur Squamous Epith Cells None seen D (0-5/HPF) Urine Bacteria Many (>30) H (None) Ur Culture Indicated? Specimen cultured Vol Urine Centrifuged 10ml (spun) MDM Narrative Medical decision making narrative: Urinalysis today is consistent with a urinary tract infection. Review of her medical record shows that she has had a pansensitive E coli in the past. Will start on Macrobid. First dose given here in the emergency department and a prescription was sent to the pharmacy of her choice. No fevers. Tolerating oral intake. No indication for admission to the hospital. Patient was given return precautions and follow-up instructions. Patient expressed understanding and agreement with plan. Discharge Plan Departure Patient Disposition: Home Clinical Impression: UTI (urinary tract infection) Instructions: DI for Urinary Tract Infection (UTI) Activity Restrictions/Additional Instructions: There was a urine culture pending at the time of your discharge and we will contact you if we need to change any antibiotics based on the results of this. Contact your primary doctor for a follow-up. Return to the emergency department for new or worsening symptoms. Prescriptions: New nitrofurantoin monohyd/m-cryst [Macrobid] 100 mg capsule 100 mg PO Q12H 5 Days Qty: 9 0RF Rx Instructions: must administer with a meal/food No Action phenazopyridine [Pyridium] 200 mg tablet 200 mg PO TID Qty: 6 0RF ondansetron 4 mg tablet,disintegrating 4 mg PO Q6H PRN (Reason: for nausea/vomiting) Qty: 20 1RF tretinoin 0.025 % cream 1 applic topical BEDTIME Qty: 20 1RF Rx Instructions: apply pea size amount daily to affected area nystatin-triamcinolone 100,000-0.1 unit/gram-% ointment 1 applic topical BID Qty: 30 0RF Rx Instructions: Apply small amount to affected area twice daily x 2 weeks dextroamphetamine sulfate 10 mg capsule, extended release 20 mg PO BID 30 Days Qty: 135 0RF Rx Instructions: may use extra for prn use hydrocodone-acetaminophen 5-325 mg tablet See Rx Instructions .ROUTE BID Qty: 90 0RF Dose Instruction: 1/2-1 tab PO BID ; Rx Instructions: 1/2-1 tab by mouth three times a day. limit as possible. caution regarding sedation/falls. fluconazole 150 mg tablet 150 mg PO QWEEK 28 Days Qty: 4 2RF estradiol [Estrace] 0.01 % (0.1 mg/gram) cream 1 appful vaginal DAILY Qty: 42.5 3RF Rx Instructions: apply 1g (1.5cm) cream to area nightly for 14 days, then 2-3x weekly thereafter estradiol 0.1 mg/24 hr patch semiweekly 1 patch transdermal 2XW Qty: 8 11RF Rx Instructions: apply patch twice a week Gemtesa 75 mg tablet 75 mg PO DAILY Qty: 30 0RF amitriptyline 10 mg tablet 10 mg PO DAILY Qty: 30 3RF Referrals: Davis Lawson, [Primary Care Provider] - Stand Alone Forms: Patient Portal/API/Survey
--- NOTE | 2024-09-17 15:24 | PC.NURSE ---
Superficial abrasion on right wrist. Pt's wound treated with steri strips, bacitracin and XL bandaid by rn. Pt to dc home and unhappy with care she received at [facility] ED stating that ems wrapped this better than you and I was told by EMS that ED would help me get back to the [facility] and that is absolutely not true. This is a huge waste of my time. RN offered to rewrap abrasions with gauze and coban but pt refused wound treatment option. Offered to provide a cab voucher to [facility]. Pt called for cab and yelled at hazmat cdl driver and hung up on hazmat cdl driver without scheduling apple picking supervisor. RN called [employer] and pt began yelling and threatening RN. Alfie, the regional owner operator truck driver of [employer], refused to take pt due to volatile, aggressive and threatening behavior of pt. Pt then got in RN's face and started yelling that she has PTSD and does not need anyone's shit. RN offered to help pt navigate [place] bus route and speak with PART TIME FLEXIBLE CLERK about getting pt a bus pas to [facility]. Pt began shoving phone in RN's face and demanding that she talked to her doctor. RN asked pt to stop pushing phone into face and declined to speak to pt's doctor. Pt continued to be physically and verablly agressive and yelling in hallways causing significant disruption to the care and comfort of other pt's in dept at the time. Pt asked to leave department otherwise police and security would be called. Pt exited department with steady gait and bandaged wound to lobby while continuing to yell profanities. Security notified of pt status.
[2024-09-17] MEDS: NITROFURANTOIN ER 100 MG CAPSULE PO (15:26)
[2024-09-17 15:38] VITALS: BP 101/67; PULSE 88; RESP 18; TEMP 37; O2SAT 97
== END 2024-09-17 15:30 | disposition home or self-care (01) ==
PROVIDERS: Emergency Provider Emergency Medicine; Family Provider Family Medicine; PCP Family Medicine
DX: N39.0 Urinary tract infection, site not specified (principal)
CPT/HCPCS: 81001; 87077; 87086; 87186; 99283

== ENCOUNTER → 2024-09-30 09:46 | Outpatient (CLI) | payer OTHER, SELFPAY ==
[2024-08-18 14:22] VITALS: BMI 21.7
[2024-09-30 10:42] LABS: Appearance Urine UA CLEAR; Bilirubin Urine UA NEGATIVE (NEGATIVE); Color Urine UA YELLOW; Glucose Urine UA NEGATIVE (Negative); Ketones Urine UA NEGATIVE (NEGATIVE); Leukocyte Esterase Urine UA NEGATIVE (NEGATIVE); Nitrite Urine UA NEGATIVE (Negative); Occult Blood Urine UA NEGATIVE (Negative); Protein Urine UA NEGATIVE (Negative); Specific Gravity Urine UA <=1.005 (1.000-1.035); Urobilinogen Urine UA 0.2 E.U./dL (0.2)
[2024-09-30 10:49] LABS: Bacteria Urine None Seen; RBC Urine None Seen (0-5/HPF); Squamous Epithelial Cell Urine 5-10 /HPF (0-5/HPF); Transitional Epi Cells Urine 0-1/HPF (0-5/HPF); Urine Volume 10mL (spun); WBC Urine 1-5/HPF (0-5/HPF)
[2024-09-30 10:50] LABS: Culture Indicated Urine Cult Not Indicated
== END ==
PROVIDERS: Family Provider Family Medicine; PCP Family Medicine; Referring Provider Specialist; Visit Provider Specialist
DX: R30.0 Dysuria (principal)
CPT/HCPCS: 81001

== ENCOUNTER → 2024-10-02 09:37 | Outpatient (CLI) | payer OTHER, SELFPAY ==
[2024-10-01 16:23] VITALS: BMI 21.7
[2024-10-04 13:36] LABS: Candida species Positive (Negative); Gardnerella vaginalis Negative (Negative); Trichomoas vaginalis Negative (Negative)
== END ==
PROVIDERS: Family Provider Family Medicine; PCP Family Medicine; Referring Provider Specialist; Visit Provider Specialist
DX: N89.8 Other specified noninflammatory disorders of vagina (principal)
CPT/HCPCS: 87480; 87510; 87660

== ENCOUNTER → 2024-10-16 13:59 | Outpatient (CLI) | payer OTHER, SELFPAY ==
[2024-10-01 16:23] VITALS: BMI 21.7
[2024-10-16 14:57] LABS: Add Manual Diff / Slide Review NO; Basophils Absolute Auto 0 /uL (0-100); Basophils Percent Auto 0.8 % (0-2); Eosinophils Absolute Auto 0 /uL (0-450); Eosinophils Percent Auto 0.6 % (2-4); Hematocrit 39.3 % (36-46); Hemoglobin 13.4 g/dL (12.0-16.0); Lymphocytes Absolute Auto 1800 /uL (1100-4500); Lymphocytes Percent Auto 45.8 % (25-40); Mean Corpuscular Hemoglobin 30.4 PG (26-34); Mean Corpuscular Volume 89.6 fL (80-100); Monocytes Absolute Auto 300 /uL (0-900); Neutrophils Absolute Auto 1700 /uL (1500-7000); Neutrophils Percent Auto 44.8 % (50-75); Platelet Count 184 X10^3/uL (150-400); Red Blood Cell Count 4.39 X10^6/uL (4.0-5.2); White Blood Cell Count 3.8 X10^3/uL (4.5-11.0)
[2024-10-16 15:09] LABS: HEMOLYSIS < 15 (0-50); Iron 131 ug/dL (37-170)
[2024-10-16 15:09] LABS: Appearance Urine UA CLEAR
[2024-10-16 15:10] LABS: Bacteria Urine Few (2-10); Color Urine UA ORANGE; Culture Indicated Urine Cult Not Indicated; RBC Urine None Seen (0-5/HPF); Squamous Epithelial Cell Urine 1-5 /HPF (0-5/HPF); Urine Volume 10mL (spun); WBC Urine 0-1/HPF (0-5/HPF)
[2024-10-16 15:15] LABS: Alanine Aminotransferase 18 IU/L (<35); Albumin 4.5 g/dL (3.5-5.0); Albumin Globulin Ratio 1.6 (1.0-2.8); Alkaline Phosphatase 46 U/L (38-126); Aspartate Aminotransferase 27 IU/L (14-36); BUN Creatinine Ratio 12.7 (6-22); Bilirubin Total 0.6 mg/dL (0.2-1.3); Blood Urea Nitrogen 8 mg/dL (7-17); Calcium 8.9 mg/dL (8.4-10.2); Carbon Dioxide 27 mmol/L (22-32); Chloride 100 mmol/L (98-107); Cholesterol 182 mg/dL (140-199); Estimated Glomerular Filt Rate > 60 mL/min (>60); Globulin 2.8 g/dL (1.7-4.1); Glucose 94 mg/dL (70-100); HDL Cholesterol 68 mg/dL (40-60); HEMOLYSIS < 15 (0-50); LDL Cholesterol Calculated 98 mg/dL (<100); Sodium 135 mmol/L (137-145); Total Protein 7.3 g/dL (6.3-8.2); Triglycerides 79 mg/dL (35-150)
[2024-10-16 15:20] LABS: Percent Iron Saturation 51 % (15-50); Total Iron Binding Capacity 255 ug/dL (265-497); Transferrin 228 mg/dL (206-381)
[2024-10-16 15:44] LABS: TSH w/ Reflex to FT4 1.22 uIU/mL (0.47-4.68)
[2024-10-16 16:03] LABS: Vitamin B12 278 pg/mL (239-931)
== END ==
LOC: LAB 14:01
PROVIDERS: Family Provider Family Medicine; PCP Family Medicine; Referring Provider Family Medicine; Visit Provider Family Medicine
DX: F98.8 Other specified behavioral and emotional disorders with onset usually occurring in childhood and adolescence (principal); F41.9 Anxiety disorder, unspecified; M54.9 Dorsalgia, unspecified; N39.0 Urinary tract infection, site not specified; G89.29 Other chronic pain
CPT/HCPCS: 36415; 80053; 80061; 81001; 82607; 83540; 83550; 84443; 85025

== ENCOUNTER → 2024-12-10 10:14 | Outpatient (CLI) | payer OTHER, SELFPAY ==
[2024-10-01 16:23] VITALS: BMI 21.7
[2024-12-10 11:21] LABS: Appearance Urine UA CLEAR; Bilirubin Urine UA NEGATIVE (NEGATIVE); Color Urine UA YELLOW; Glucose Urine UA NEGATIVE (Negative); Ketones Urine UA NEGATIVE (NEGATIVE); Leukocyte Esterase Urine UA NEGATIVE (NEGATIVE); Nitrite Urine UA NEGATIVE (Negative); Occult Blood Urine UA NEGATIVE (Negative); Protein Urine UA NEGATIVE (Negative); Specific Gravity Urine UA <=1.005 (1.000-1.035); Urobilinogen Urine UA 0.2 E.U./dL (0.2)
[2024-12-10 11:28] LABS: Rubella Antibody IgG 11.2 IU/mL (>15); pH Urine UA 5.5 (4.5-8.0)
[2024-12-10 11:30] LABS: Bacteria Urine None Seen; Culture Indicated Urine Cult Not Indicated; RBC Urine None Seen (0-5/HPF); Squamous Epithelial Cell Urine 1-5 /HPF (0-5/HPF); Urine Volume 10mL (spun); WBC Urine None Seen (0-5/HPF)
[2024-12-11 10:11] LABS: Mumps Virus IgG Antibody 59.9 AU/mL (Immune >10.9)
== END ==
LOC: LAB 10:15
PROVIDERS: Family Provider Family Medicine; PCP Family Medicine; Referring Provider Obstetrics & Gynecology; Visit Provider Family Medicine
DX: Z78.9 Other specified health status (principal); R35.0 Frequency of micturition; R39.15 Urgency of urination
CPT/HCPCS: 36415; 81001; 86735; 86762; 86765

== ENCOUNTER → 2025-04-11 14:11 | Outpatient (CLI) | payer OTHER, SELFPAY ==
[2024-12-18 12:48] VITALS: BMI 21.7
== END ==
PROVIDERS: Family Provider Family Medicine; PCP Family Medicine; Visit Provider Registered Nurse
DX: J02.9 Acute pharyngitis, unspecified (principal)
CPT/HCPCS: 87070